=== PATIENT | female | born 1970 | race Caucasian/White ===

== ENCOUNTER 2016-06-07 21:18 | Emergency (ER) | payer MEDICARE ==
[2016-06-07] MEDS ORDERED: TORAdol 30 mg Injection IM ONE (22:01)
[2016-06-07] MEDS ORDERED: Vistaril 50 MG/ML IM ONE ×2 (22:01→22:05)
--- NOTE | 2016-06-07 22:04 | ERPHSYRPT ---
- History of Present Illness Time Seen by Provider: 06/07/16 21:56 Source: patient Patient Subjective Stated Complaint: Pt sts pain all over, aches all over. Sts feels awful. Sts not been recently sick. Sts nausea. Sts has had hiccups. Triage Nursing Assessment: Pt alert, oriented, answers all questions appropriately. Skin flushed, warm, dry. Resps non-labored. Pt speaking in full sentences without difficulty. Pt ambulatory to tx room, steady gait noted. Lung sounds CTA bilat non-labored. Physician History: CC: aches Hx: 46 y/o patient with hx of crohms and fibromylagia. She states she has aching skin all over her body. Tonite she noted BP was low at 106/46 so she came to ER. She sees Dr Yoder. She is on chronic norco. No other specific symptoms. Severity: moderate Allergies/Adverse Reactions: warfarin sodium [From Coumadin] Adverse Reaction (Severe, Verified 01/01/16 17: 33) Platelet count drop significantly Home Medications: Cyclobenzaprine HCl [Flexeril] 10 mg PO HSPRN PRN 01/09/13 [History] Pramipexole Di-HCl [Mirapex] 1.5 mg PO HS 01/09/13 [History] Hydrocodone/APAP 10/325 mg [[place] 10/325 MG Tablet] 1 tab PO TIDPRN PRN [History] Fluoxetine HCl [Prozac] 20 mg PO HS 09/05/14 [History] Folic Acid 1 mg PO DAILY 04/01/15 [History] Lisinopril 10 mg [Zestril 10 MG] 10 mg PO DAILY 04/01/15 [History] Loratadine [Claritin] 10 mg PO DAILY 04/01/15 [History] Milnacipran HCl [Savella] 50 mg PO BID 04/01/15 [History] Pregabalin [Lyrica] 75 cap PO BID 04/01/15 [History] Ropinirole HCl [Requip] 1 mg PO HSPRN PRN 04/01/15 [History] Temazepam 15 mg [Restoril 15 MG] 15 mg PO HS 01/01/16 [History] Hx Tetanus, Diphtheria Vaccination/Date Given: Yes Hx Influenza Vaccination/Date Given: Yes Hx Pneumococcal Vaccination/Date Given: No Immunizations Up to Date: Yes - Review of Systems Constitutional: Fatigue, Malaise, Weakness (all over), No Fever, No Chills Eyes: No Symptoms Ears, Nose, & Throat: No Symptoms Respiratory: No Cough, No Dyspnea Cardiac: No Chest Pain, No Edema Abdominal/Gastrointestinal: No Abdominal Pain, No Nausea, No Vomiting, No Diarrhea Genitourinary Symptoms: No Dysuria Musculoskeletal: Myalgias, No Injury Skin: No Rash Neurological: No Headache, No Paralysis, No Parasthesia All Other Systems: Reviewed and Negative - Past Medical History Pertinent Past Medical History: Yes Neurological History: Migraines ENT History: No Pertinent History Cardiac History: Deep Vein Thrombosis, Hypertension Respiratory History: No Pertinent History, Pulmonary Embolism Endocrine Medical History: No Pertinent History Musculoskeletal History: Arthritis, Fibromyalgia GI Medical History: Crohns Disease History: No Pertinent History Psycho-Social History: Anxiety, Depression Female Reproductive Disorders: No Pertinent History Other Medical History: restless leg syndrome.DVT hx - Past Surgical History Past Surgical History: Yes Neuro Surgical History: No Pertinent History Cardiac: No Pertinent History Respiratory: No Pertinent History Gastrointestinal: No Pertinent History, Hernia Repair Genitourinary: No Pertinent History Musculoskeletal: No Pertinent History Female Surgical History: Hysterectomy, Tubal Ligation Other Surgical History: tonsilectomy, adenoidectomy, groshong placement, port placement, left hand surgery - Social History Smoking Status: Current every day smoker How long have you smoked: 30 Exposure to second hand smoke: Yes Drug Use: none Patient Lives Alone: No - Female History Hx Last Menstrual Period: hyst Hx Now: No - Nursing Vital Signs Nursing Vital Signs: Initial Vital Signs Temperature 97.8 F Temperature Source Oral Pulse Rate 88 Respiratory Rate 16 Blood Pressure 129/82 Pain Intensity 0 - Physical Exam General Appearance: alert Eye Exam: PERRL/EOMI Ears, Nose, Throat Exam: normal ENT inspection, moist mucous membranes Neck Exam: normal inspection, non-tender, supple Respiratory Exam: normal breath sounds, lungs clear Cardiovascular Exam: regular rate/rhythm, No murmur Gastrointestinal/Abdomen Exam: soft, No tenderness, No distention Back Exam: normal inspection Extremity Exam: normal inspection, normal range of motion Neurologic Exam: alert, oriented x 3, cooperative, sensation nml, No motor deficits Skin Exam: warm, dry, No rash SpO2 Interpretation: normal SpO2: 98 Oxygen Delivery: Room Air - Course Nursing assessment & vital signs reviewed: Yes Ordered Tests: Active Orders 24 hr Category Date Time Status CBC W DIFF Stat Lab 06/07/16 22:18 Completed CMP Stat Lab 06/07/16 22:18 Completed Lactic Acid Urgent Lab 06/07/16 22:12 Completed UA Stat Lab 06/07/16 22:45 Completed Medication Summary Discontinued Medications Generic Name Dose Route Start Last Admin Trade Name Geo PRN Reason Stop Dose Admin Hydroxyzine HCl 50 mg 06/07/16 22:01 06/07/16 22:06 Vistaril 50 Mg/Ml IM 06/07/16 22:02 50 mg STAT ONE Administration Hydroxyzine HCl Confirm 06/07/16 22:05 Vistaril 50 Mg/Ml Administered 06/07/16 22:06 Dose 50 mg IM .STK-MED ONE Ketorolac Tromethamine 60 mg 06/07/16 22:01 06/07/16 22:06 Toradol 30 Mg Injection IM 06/07/16 22:02 60 mg STAT ONE Administration Ketorolac Tromethamine Confirm 06/07/16 22:05 Toradol 30 Mg Injection Administered 06/07/16 22:06 Dose 60 mg .ROUTE .STK-MED ONE Lab/Rad Data: Laboratory Result Diagrams 06/07/16 22:18 06/07/16 22:18 Laboratory Results 06/07/16 06/07/16 06/07/16 Range/Units 22:45 22:18 22:18 WBC 8.0 (4.0-10.5) K/mm3 RBC 4.27 (4.1-5.4) M/mm3 Hgb 12.9 (12.0-16.0) gm/dl Hct 38.9 (35-47) % MCV 91.1 (78-100) fl MCH 30.2 (26-32) pg MCHC 33.2 (32-36) g/dl RDW 12.9 (11.5-14.0) % Plt Count 197 (150-450) K/mm3 MPV 10.6 H (6-9.5) fl Gran % 63.4 (36.0-66.0) % Lymphocytes % 27.9 (24.0-44.0) % Monocytes % 6.0 (0.0-12.0) % Eosinophils % 2.6 (0.00-5.0) % Basophils % 0.1 (0.0-0.4) % Basophils # 0.01 (0-0.4) Sodium 140 (136-145) mEq/L Potassium 3.8 (3.5-5.1) mEq/L Chloride 104 (98-107) mEq/L Carbon Dioxide 30.2 (21-32) mEq/L Anion Gap 9.9 (5-15) MEQ/L BUN 10 (9-20) mg/dL Creatinine 0.83 (0.55-1.30) mg/dl Estimated GFR > 60 ML/MIN Glucose 117 H (70-110) MG/DL Lactic Acid (0.4-2.0) Calcium 9.1 (8.5-10.1) mg/dL Total Bilirubin 0.2 (0.2-1.0) mg/dL AST 13 L (15-37) U/L ALT 18 (12-78) U/L Alkaline Phosphatase 74 (46-116) U/L Serum Total Protein 6.7 (6.4-8.2) gm/dL Albumin 3.5 (3.4-5.0) g/dL Ur Collection Type CLEAN CATCH Urine Color YELLOW (YELLOW) Urine Appearance CLEAR (CLEAR) Urine pH 6.0 (5-6) Ur Specific [place] <=1.005 (1.005-1.025) Urine Protein NEGATIVE (Negative) Urine Glucose (UA) NEGATIVE (NEGATIVE) mg/dL Urine Ketones NEGATIVE (NEGATIVE) Urine Nitrite NEGATIVE (NEGATIVE) Urine Bilirubin NEGATIVE (NEGATIVE) Urine Urobilinogen 0.2 (0-1) mg/dL Urine WBC (Auto) NEGATIVE (NEGATIVE) Urine RBC (Auto) NEGATIVE (0-5) Dwayne/ul Specimen Received [id number] 06/07/16 Range/Units 22:12 WBC (4.0-10.5) K/mm3 RBC (4.1-5.4) M/mm3 Hgb (12.0-16.0) gm/dl Hct (35-47) % MCV (78-100) fl MCH (26-32) pg MCHC (32-36) g/dl RDW (11.5-14.0) % Plt Count (150-450) K/mm3 MPV (6-9.5) fl Gran % (36.0-66.0) % Lymphocytes % (24.0-44.0) % Monocytes % (0.0-12.0) % Eosinophils % (0.00-5.0) % Basophils % (0.0-0.4) % Basophils # (0-0.4) Sodium (136-145) mEq/L Potassium (3.5-5.1) mEq/L Chloride (98-107) mEq/L Carbon Dioxide (21-32) mEq/L Anion Gap (5-15) MEQ/L BUN (9-20) mg/dL Creatinine (0.55-1.30) mg/dl Estimated GFR ML/MIN Glucose (70-110) MG/DL Lactic Acid 1.2 (0.4-2.0) Calcium (8.5-10.1) mg/dL Total Bilirubin (0.2-1.0) mg/dL AST (15-37) U/L ALT (12-78) U/L Alkaline Phosphatase (46-116) U/L Serum Total Protein (6.4-8.2) gm/dL Albumin (3.4-5.0) g/dL Ur Collection Type Urine Color (YELLOW) Urine Appearance (CLEAR) Urine pH (5-6) Ur Specific [place] (1.005-1.025) Urine Protein (Negative) Urine Glucose (UA) (NEGATIVE) mg/dL Urine Ketones (NEGATIVE) Urine Nitrite (NEGATIVE) Urine Bilirubin (NEGATIVE) Urine Urobilinogen (0-1) mg/dL Urine WBC (Auto) (NEGATIVE) Urine RBC (Auto) (0-5) Dwayne/ul Specimen Received - Progress Progress Note: 06/07/16 22:04 BP is wnl here. 06/07/16 23:02 BP has been normal here. She feels better after meds. Appears to have flare of fibromyalgia. Will release to follow up with Dr Yoder. Counseled pt/family regarding: lab results, diagnosis, need for follow-up - Departure Time of Disposition: 23:03 Departure Disposition: Home Clinical Impression: Fibromyalgia Condition: Stable Critical Care Time: No Referrals: ESTEBAN YODER [Primary Care Provider] - Instructions: Chronic Pain -- Adult Additional Instructions: No driving tonite and stay with family. Follow up this week with Dr Yoder.
[2016-06-07] MEDS ORDERED: TORAdol 30 mg Injection ONE (22:05)
[2016-06-07 22:21] LABS: BASOPHIL % 0.1 % (0.0-0.4); Eosinophil % 2.6 % (0.00-5.0); Granulocytes % 63.4 % (36.0-66.0); Lymphocytes % 27.9 % (24.0-44.0); Mean Cell Volume 91.1 fl (78-100); Mean Corpuscular Hemoglobin 30.2 pg (26-32); Mean Platelet Volume 10.6 fl (6-9.5); Platelet Count 197 K/mm3 (150-450); Red Blood Count 4.27 M/mm3 (4.1-5.4); Red Cell Distribution Width 12.9 % (11.5-14.0)
[2016-06-07 22:37] LABS: ALBUMIN 3.5 g/dL (3.4-5.0); ALKALINE PHOSPHATASE 74 U/L (46-116); ANION GAP 9.9 MEQ/L (5-15); BILIRUBIN,TOTAL 0.2 mg/dL (0.2-1.0); BLOOD UREA NITROGEN 10 mg/dL (9-20); CHLORIDE 104 mEq/L (98-107); Carbon Dioxide 30.2 mEq/L (21-32); Glucose 117 MG/DL (70-110); Potassium 3.8 mEq/L (3.5-5.1); SGOT/AST 13 U/L (15-37); SGPT/ALT 18 U/L (12-78); SODIUM 140 mEq/L (136-145); Total Protein 6.7 gm/dL (6.4-8.2)
[2016-06-07 22:54] LABS: COMPLETE URINE MICROSCOPIC? NO; Collection Type CLEAN CATCH
[2016-06-07 23:13] VITALS: BP 127/67; PULSE 79; O2SAT 100
== END 2016-06-07 23:13 | disposition home or self-care (01) ==
LOC: ED 21:18
DX: M79.7 Fibromyalgia (principal); Z79.899 Other long term (current) drug therapy; I10 Essential (primary) hypertension; K50.90 Crohn's disease, unspecified, without complications
CPT/HCPCS: 36415; 80053; 81002; 83605; 85025; 96372; 99283; J1885; J3410

== ENCOUNTER 2016-06-26 17:12 | Observation (INO) | payer MEDICARE ==
[2016-06-26] MEDS ORDERED: Sodium Chloride 0.9% 1000 ML 1,000 ML IV STA (17:39)
[2016-06-26] MEDS ORDERED: Sodium Chloride 0.9% 1000 ML 1,000 ML ONE (17:43)
[2016-06-26 18:01] LABS: Mean Cell Volume 86.8 fl (78-100); Mean Platelet Volume 11.1 fl (6-9.5); Platelet Count 211 K/mm3 (150-450); Red Blood Count 3.57 M/mm3 (4.1-5.4); Red Cell Distribution Width 13.3 % (11.5-14.0); White Blood Count 9.8 K/mm3 (4.0-10.5)
--- NOTE | 2016-06-26 18:02 | ERPHSYRPT ---
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 She is on eliquis anticoagualtion. She reports waking up this AM with a cut on the back of her head and a bruise on the left side of her leg. She has no recollection of an injury but presumes she must have fallen in the night. No N/V. No confusion today. No neck or back pain. She reports periodic fevers for a few weeks. Malaise. No abd pain or cough. She had labs showing W?BC 17 this week so started empiric doxycycline yesterday. No blood cultures available. She had neg strep throat testing and negative flu testing. Allergies/Adverse Reactions: warfarin sodium [From Coumadin] Adverse Reaction (Severe, Verified 06/26/16 17: 26) Platelet count drop significantly Home Medications: Cyclobenzaprine HCl [Flexeril] 10 mg PO HSPRN PRN 01/09/13 [History] Pramipexole Di-HCl [Mirapex] 1.5 mg PO HS 01/09/13 [History] Hydrocodone/APAP 10/325 mg [[place] 10/325 MG Tablet] 1 tab PO TIDPRN PRN [History] Fluoxetine HCl [Prozac] 20 mg PO HS 09/05/14 [History] Lisinopril 10 mg [Zestril 10 MG] 10 mg PO DAILY 04/01/15 [History] Loratadine [Claritin] 10 mg PO DAILY 04/01/15 [History] Milnacipran HCl [Savella] 50 mg PO BID 04/01/15 [History] Pregabalin [Lyrica] 75 cap PO BID 04/01/15 [History] Ropinirole HCl [Requip] 1 mg PO HSPRN PRN 04/01/15 [History] Temazepam 15 mg [Restoril 15 MG] 15 mg PO HS 01/01/16 [History] Hx Tetanus, Diphtheria Vaccination/Date Given: Yes Hx Influenza Vaccination/Date Given: Yes Hx Pneumococcal Vaccination/Date Given: No Immunizations Up to Date: Yes - Review of Systems Constitutional: Fever, Chills, Fatigue, Malaise Eyes: No Vision Changes Ears, Nose, & Throat: Throat Pain Respiratory: No Cough Cardiac: No Chest Pain Abdominal/Gastrointestinal: No Abdominal Pain, No Nausea, No Vomiting Musculoskeletal: No Back Pain, No Neck Pain Skin: No Rash Neurological: No Dizziness, No Headache, No Paralysis, No Parasthesia All Other Systems: Reviewed and Negative - Past Medical History Pertinent Past Medical History: Yes Neurological History: Migraines ENT History: No Pertinent History Cardiac History: Deep Vein Thrombosis, Hypertension Respiratory History: No Pertinent History, Pulmonary Embolism Endocrine Medical History: No Pertinent History Musculoskeletal History: Arthritis, Fibromyalgia GI Medical History: Crohns Disease History: No Pertinent History Psycho-Social History: Anxiety, Depression Female Reproductive Disorders: No Pertinent History Other Medical History: restless leg syndrome.DVT hx - Past Surgical History Past Surgical History: Yes Neuro Surgical History: No Pertinent History Cardiac: No Pertinent History Respiratory: No Pertinent History Gastrointestinal: No Pertinent History, Hernia Repair Genitourinary: No Pertinent History Musculoskeletal: No Pertinent History Female Surgical History: Hysterectomy, Tubal Ligation Other Surgical History: groshong placement, port placement, left hand surgery - Social History Smoking Status: Current every day smoker How long have you smoked: 30 Exposure to second hand smoke: Yes Drug Use: none Patient Lives Alone: No - Female History Hx Now: No - Nursing Vital Signs Nursing Vital Signs: Initial Vital Signs Temperature 98.8 F Temperature Source Oral Pulse Rate 88 Respiratory Rate 18 Blood Pressure [Right Arm] 98/62 Pain Intensity 10 - Physical Exam General Appearance: alert, other (2cm superficial cut back of head occipital, no FB, drng or sign of infection. ) Eye Exam: PERRL/EOMI Ears, Nose, Throat Exam: moist mucous membranes Neck Exam: normal inspection, non-tender, supple, No midline tenderness Respiratory Exam: normal breath sounds, lungs clear Cardiovascular Exam: regular rate/rhythm, gallop (S4), No murmur, No friction rub Gastrointestinal/Abdomen Exam: soft, No tenderness, No distention Back Exam: normal inspection, No vertebral tenderness Extremity Exam: normal range of motion, other (some eccymosis left knee area), No limited range of motion, No tenderness Neurologic Exam: alert, oriented x 3, cooperative, sensation nml, No motor deficits Skin Exam: warm, dry, No rash SpO2 Interpretation: normal SpO2: 100 Oxygen Delivery: Room Air - Course Nursing assessment & vital signs reviewed: Yes EKG Interpreted by Me: RATE (93), Sinus Rhythm, NORMAL AXIS, NORMAL INTERVALS ( QTc 448), NORMAL QRS, NORMAL ST-T Ordered Tests: Active Orders 24 hr Category Date Time Status Cath for Specimen-Straight STAT Care 06/26/16 17:39 Active EKG-ER Only STAT Care 06/26/16 17:39 Active IV Insertion STAT Care 06/26/16 17:39 Active Wound Care STAT Care 06/26/16 17:40 Active HEAD WITHOUT CONTRAST [CT] Stat Exams 06/26/16 17:40 Taken BLOOD CULTURE Stat Lab 06/26/16 17:57 Received CBC W DIFF Stat Lab 06/26/16 17:45 Completed CMP Stat Lab 06/26/16 17:45 Completed CULTURE,URINE Stat Lab 06/26/16 18:05 Received Ethyl Alcohol,Urine Stat Lab 06/26/16 18:05 Completed Lactic Acid Urgent Lab 06/26/16 17:39 Completed Manual Differential NC Stat Lab 06/26/16 17:45 Completed UA W/ MICROSCOPIC Stat Lab 06/26/16 18:05 Completed Urine Triage Profile Stat Lab 06/26/16 18:05 Completed Medication Summary Discontinued Medications Generic Name Dose Route Start Last Admin Trade Name Freq PRN Reason Stop Dose Admin Sodium Chloride 1,000 mls @ 999 mls/hr 06/26/16 17:39 06/26/16 17:44 Sodium Chloride 0.9% 1000 Ml IV 06/26/16 18:39 999 mls/hr .Q1H1M STA Administration Sodium Chloride Confirm 06/26/16 17:43 Sodium Chloride 0.9% 1000 Ml Administered 06/26/16 17:44 Dose 1,000 mls @ ud .ROUTE .STK-MED ONE Lab/Rad Data: Laboratory Result Diagrams 06/26/16 17:45 06/26/16 17:45 Laboratory Results 06/26/16 06/26/16 06/26/16 Range/Units 18:05 18:05 18:05 WBC (4.0-10.5) K/mm3 RBC (4.1-5.4) M/mm3 Hgb (12.0-16.0) gm/dl Hct (35-47) % MCV (78-100) fl MCH (26-32) pg MCHC (32-36) g/dl RDW (11.5-14.0) % Plt Count (150-450) K/mm3 MPV (6-9.5) fl Segmented Neutrophils (36.0-66.0) % Lymphocytes (Manual) (24-44) % Monocytes (Manual) (0.0-12.0) % Eosinophils (Manual) (0.00-3.0) % Differential Comment Platelet Estimate (NORMAL) Sodium (136-145) mEq/L Potassium (3.5-5.1) mEq/L Chloride (98-107) mEq/L Carbon Dioxide (21-32) mEq/L Anion Gap (5-15) MEQ/L BUN (9-20) mg/dL Creatinine (0.55-1.30) mg/dl Estimated GFR ML/MIN Glucose (70-110) MG/DL Lactic Acid (0.4-2.0) Calcium (8.5-10.1) mg/dL Total Bilirubin (0.2-1.0) mg/dL AST (15-37) U/L ALT (12-78) U/L Alkaline Phosphatase (46-116) U/L Serum Total Protein (6.4-8.2) gm/dL Albumin (3.4-5.0) g/dL Ur Collection Type CATH Urine Color YELLOW (YELLOW) Urine Appearance CLEAR (CLEAR) Urine pH 5.5 5.5 (5-6) Ur Specific [place] 1.010 (1.005-1.025) Urine Protein 30 (Negative) Urine Glucose (UA) NEGATIVE (NEGATIVE) mg/dL Urine Ketones NEGATIVE (NEGATIVE) Urine Nitrite NEGATIVE (NEGATIVE) Urine Bilirubin NEGATIVE (NEGATIVE) Urine Urobilinogen 0.2 (0-1) mg/dL Urine WBC (Auto) SMALL (NEGATIVE) Urine RBC (Auto) TRACE HEMOLYZED (0-5) Dwayne/ul Urine Microscopic WBC 0-2 (0-5) /HPF Urine Bacteria FEW (NEGATIVE) /HPF Urine Mucus SLIGHT (NEGATIVE) /HPF Urine Opiates Level POS. (NEGATIVE) Ur Methadone NEG. (NEGATIVE) Urine Barbiturates NEG. (NEGATIVE) Ur Phencyclidine (PCP) NEG. (NEGATIVE) Urine Amphetamine NEG. (NEGATIVE) U Benzodiazepine Level NEG. (NEGATIVE) Urine Cocaine NEG. (NEGATIVE) Urine Marijuana (THC) NEG. (NEGATIVE) Urine Ethyl Alcohol 1 (0.00-20) mg/dl Specimen Received 06/26/16:1805 06/26/16 06/26/16 06/26/16 Range/Units 17:45 17:45 17:39 WBC 9.8 (4.0-10.5) K/mm3 RBC 3.57 L (4.1-5.4) M/mm3 Hgb 10.7 L (12.0-16.0) gm/dl Hct 31.0 L (35-47) % MCV 86.8 (78-100) fl MCH 29.9 (26-32) pg MCHC 34.5 (32-36) g/dl RDW 13.3 (11.5-14.0) % Plt Count 211 (150-450) K/mm3 MPV 11.1 H (6-9.5) fl Segmented Neutrophils 77 H (36.0-66.0) % Lymphocytes (Manual) 12 L (24-44) % Monocytes (Manual) 9 (0.0-12.0) % Eosinophils (Manual) 2 (0.00-3.0) % Differential Comment NORMAL Platelet Estimate NORMAL (NORMAL) Sodium 130 L (136-145) mEq/L Potassium 3.1 L (3.5-5.1) mEq/L Chloride 95 L (98-107) mEq/L Carbon Dioxide 23.6 (21-32) mEq/L Anion Gap 14.1 (5-15) MEQ/L BUN 16 (9-20) mg/dL Creatinine 1.88 H (0.55-1.30) mg/dl Estimated GFR 31 ML/MIN Glucose 105 (70-110) MG/DL Lactic Acid 0.8 (0.4-2.0) Calcium 8.2 L (8.5-10.1) mg/dL Total Bilirubin 0.2 (0.2-1.0) mg/dL AST 28 (15-37) U/L ALT 40 (12-78) U/L Alkaline Phosphatase 151 H (46-116) U/L Serum Total Protein 6.1 L (6.4-8.2) gm/dL Albumin 2.4 L (3.4-5.0) g/dL Ur Collection Type Urine Color (YELLOW) Urine Appearance (CLEAR) Urine pH (5-6) Ur Specific [place] (1.005-1.025) Urine Protein (Negative) Urine Glucose (UA) (NEGATIVE) mg/dL Urine Ketones (NEGATIVE) Urine Nitrite (NEGATIVE) Urine Bilirubin (NEGATIVE) Urine Urobilinogen (0-1) mg/dL Urine WBC (Auto) (NEGATIVE) Urine RBC (Auto) (0-5) Dwayne/ul Urine Microscopic WBC (0-5) /HPF Urine Bacteria (NEGATIVE) /HPF Urine Mucus (NEGATIVE) /HPF Urine Opiates Level (NEGATIVE) Ur Methadone (NEGATIVE) Urine Barbiturates (NEGATIVE) Ur Phencyclidine (PCP) (NEGATIVE) Urine Amphetamine (NEGATIVE) U Benzodiazepine Level (NEGATIVE) Urine Cocaine (NEGATIVE) Urine Marijuana (THC) (NEGATIVE) Urine Ethyl Alcohol (0.00-20) mg/dl Specimen Received - Progress Progress Note: 06/26/16 19:16 CT brain: kevin 6:30 PM 06/26/2016: Compared to 12/16/15. Negative CT head. Pt has elevated creat, low Na and low K. IVF given. Called Dr Stevan Yoder and will place on obs and IVF. Will see patient in: hospital (observation) Counseled pt/family regarding: lab results, diagnosis, need for follow-up - Departure Time of Disposition: 19:18 Departure Disposition: Observation Clinical Impression: Laceration of head, Dehydration, Hypokalemia, Hyponatremia Condition: Stable Critical Care Time: No Referrals: ESTEBAN YODER [Primary Care Provider] -
[2016-06-26 18:11] LABS: Mean Corpuscular Hemoglobin 29.9 pg (26-32)
[2016-06-26 18:14] LABS: Bacteria FEW /HPF (NEGATIVE); COMPLETE URINE MICROSCOPIC? YES; Collection Type CATH; Mucus SLIGHT /HPF (NEGATIVE); Ph 5.5 (5-6); WBC 0-2 /HPF (0-5)
[2016-06-26 18:20] LABS: ALBUMIN 2.4 g/dL (3.4-5.0); ANION GAP 14.1 MEQ/L (5-15); BILIRUBIN,TOTAL 0.2 mg/dL (0.2-1.0); Carbon Dioxide 23.6 mEq/L (21-32); Potassium 3.1 mEq/L (3.5-5.1); Total Protein 6.1 gm/dL (6.4-8.2)
[2016-06-26 18:30] LABS: Eosinophil 2 % (0.00-3.0); Platelet Estimate NORMAL (NORMAL); Total Cells Counted 100
[2016-06-26] MEDS ORDERED: Dextrose 5% -0.45 NaCl 1000 ML 0 ML IV ONE (19:48)
[2016-06-26] MEDS: DEXTROSE 5%-NACL 0.9% 1000 ML + KCL 40 MEQ 1,000 ML IV SCH (20:06)
[2016-06-26] MEDS ORDERED: Flexeril 10 MG PO PRN (20:39)
[2016-06-26] MEDS ORDERED: Requip 0.5 MG PO PRN (20:45)
[2016-06-26] MEDS ORDERED: Restoril 15 MG PO PRN (20:46)
[2016-06-26] MEDS: Norco 10/325 MG Tablet PO PRN (20:51)
--- NOTE | 2016-06-26 20:56 | XRAY ---
Indication: Head injury. Anticoagulant therapy. Multiple contiguous axial images obtained through the head without contrast. Comparison: December 16, 2015 No acute intracranial hemorrhage, abnormal extra-axial fluid collection, or mass effect. Fourth ventricle is midline without hydrocephalus. [place]-white matter differentiation is preserved. Bony calvarium intact. Visualized paranasal sinuses and mastoid air cells are pneumatized and clear. Impression: Again no acute intracranial abnormalities. CTDI 52.03
[2016-06-26] MEDS: Lyrica 25 MG PO SCH (21:37)
[2016-06-26] MEDS: ELIQUIS PO SCH (21:38)
[2016-06-26] MEDS ORDERED: Prozac 20 MG PO SCH (22:00)
[2016-06-27] MEDS: DEXTROSE 5%-NACL 0.9% 1000 ML + KCL 40 MEQ 1,000 ML IV SCH (02:34)
[2016-06-27 05:54] LABS: Mean Cell Volume 87.9 fl (78-100); Mean Platelet Volume 11.2 fl (6-9.5); Platelet Count 241 K/mm3 (150-450); Red Blood Count 3.39 M/mm3 (4.1-5.4); Red Cell Distribution Width 13.6 % (11.5-14.0); White Blood Count 7.1 K/mm3 (4.0-10.5)
[2016-06-27] MEDS: Norco 10/325 MG Tablet PO PRN (06:01)
[2016-06-27 06:05] LABS: ANION GAP 12.2 MEQ/L (5-15); Carbon Dioxide 23.4 mEq/L (21-32)
--- NOTE | 2016-06-27 07:09 | PCM.SSS ---
History of Present Illness - Chief Complaint Chief Complaint: dehydration History of Present Illness: is a 46 year old female who presented to ER after a fall, she felt weak and lightheaded. apparently has felt ill with chills, not much diarrhea or vomiting etc. hx of crohn's. she feels much better after hydration, cr was elevated and K was low on arrival, these are resolved now. no source of infection found to correlate with the chills - Review of Systems Constitutional: No Fever, No Chills Respiratory: No Cough, No Short Of Breath Cardiac: No Chest Pain, No Edema, No Syncope Skin: No Rash All Other Systems: Reviewed and Negative Medications & Allergies Home Medications: Home Medication List Cyclobenzaprine HCl [Flexeril] 10 mg PO HSPRN PRN 01/09/13 [History Confirmed ] Pramipexole Di-HCl [Mirapex] 1.5 mg PO HS 01/09/13 [History Confirmed 06/26/16] Hydrocodone/APAP 10/325 mg [[place] 10/325 MG Tablet] 1 tab PO TIDPRN PRN [History Confirmed 06/26/16] Fluoxetine HCl [Prozac] 20 mg PO HS 09/05/14 [History Confirmed 06/26/16] Lisinopril 10 mg [Zestril 10 MG] 5 mg PO DAILY 04/01/15 [History Confirmed 06/26/16] Loratadine [Claritin] 10 mg PO DAILY 04/01/15 [History Confirmed 06/26/16] Milnacipran HCl [Savella] 50 mg PO BID 04/01/15 [History Confirmed 06/26/16] Pregabalin [Lyrica] 75 cap PO BID 04/01/15 [History Confirmed 06/26/16] Ropinirole HCl [Requip] 1 mg PO HSPRN PRN 04/01/15 [History Confirmed 06/26/16] Apixaban [Eliquis] 5 mg PO BID #0 tablet 04/04/15 [Rx Confirmed 06/26/16] Temazepam 15 mg [Restoril 15 MG] 15 mg PO HS 01/01/16 [History Confirmed 06/26/16] Allergies/Adverse Reactions: Allergies Allergy/AdvReac Type Severity Reaction Status Date / Time warfarin sodium AdvReac Severe Verified 06/26/16 17:26 [From Coumadin] - Past Medical History Past Medical History: Yes Neurological History: Migraines ENT History: No Pertinent History Cardiac History: Deep Vein Thrombosis, Hypertension Respiratory History: No Pertinent History, Pulmonary Embolism Endocrine Medical History: No Pertinent History Musculoskelatal History: Arthritis, Fibromyalgia GI Medical History: Crohns Disease History: No Pertinent History Pyscho-Social History: Anxiety, Depression Reproductive Disorders: No Pertinent History Comment: restless leg syndrome.DVT hx - Female History Are you now?: No - Past Surgical History Past Surgical History: Yes Neuro Surgical History: No Pertinent History Cardiac History: No Pertinent History Respiratory Surgery: No Pertinent History GI Surgical History: No Pertinent History, Hernia Repair Genitourinary Surgical Hx: No Pertinent History Musculskeletal Surgical Hx: No Pertinent History Female Surgical History: Hysterectomy, Tubal Ligation Other Surgical History: groshong placement/removed, port placement/removed, left hand surgery - Social History Smoking Status: Current every day smoker How long have you smoked: 40 Exposure to second hand smoke: Yes Alcohol: None Drug Use: none - Physical Exam Vital Signs: Vital Signs - 24 hr Temp Pulse Resp BP Pulse Ox 06/27/16 04:00 98.9 F 92 H 18 106/55 98 06/26/16 23:26 98.3 F 95 H 17 100/55 98 06/26/16 20:54 97.7 F 86 20 156/61 96 06/26/16 19:18 100 06/26/16 18:28 98.8 F 88 18 98/62 99 06/26/16 18:06 96 H 16 100/61 99 06/26/16 17:20 98.2 F 99 H 22 117/55 100 General Appearance: no apparent distress, alert Neurologic Exam: alert, oriented x 3, cooperative, normal mood/affect, nml cerebellar function, nml station & gait, sensation nml, No motor deficits Respiratory Exam: normal breath sounds, lungs clear, No respiratory distress Cardiovascular Exam: regular rate/rhythm, normal heart sounds, normal peripheral pulses Gastrointestinal/Abdomen Exam: soft, normal bowel sounds, No tenderness, No mass Extremity Exam: normal inspection, normal range of motion, pelvis stable Skin Exam: normal color, warm, dry, No rash Results - Labs Lab/Micro Results: Lab Results-Last 24 Hours 06/27/16 06/27/16 Range/Units 04:30 04:30 WBC 7.1 (4.0-10.5) K/mm3 RBC 3.39 L (4.1-5.4) M/mm3 Hgb 10.2 L (12.0-16.0) gm/dl Hct 29.8 L (35-47) % MCV 87.9 (78-100) fl MCH 30.0 (26-32) pg MCHC 34.2 (32-36) g/dl RDW 13.6 (11.5-14.0) % Plt Count 241 (150-450) K/mm3 MPV 11.2 H (6-9.5) fl Sodium 140 (136-145) mEq/L Potassium 4.0 (3.5-5.1) mEq/L Chloride 108 H (98-107) mEq/L Carbon Dioxide 23.4 (21-32) mEq/L Anion Gap 12.2 (5-15) MEQ/L BUN 13 (9-20) mg/dL Creatinine 1.36 H (0.55-1.30) mg/dl Estimated GFR 44 ML/MIN Glucose 124 H (70-110) MG/DL Calcium 8.0 L (8.5-10.1) mg/dL Assessment/Plan (1) Hypokalemia Current Visit: Yes Status: Acute Code(s): E87.6 - HYPOKALEMIA (2) Laceration of head Current Visit: Yes Status: Acute Code(s): S01.91XA - LACERATION W/O FOREIGN BODY OF UNSP PART OF HEAD, INIT (3) Dehydration Current Visit: No Status: Acute Code(s): E86.0 - DEHYDRATION (4) Generalized weakness Current Visit: No Status: Acute Code(s): R53.1 - WEAKNESS Hospital Summary - Vitals & Intake/Output Vital Signs: Vital Signs Temperature 98.9 F 06/27/16 04:00 Pulse Rate 92 H 06/27/16 04:00 Respiratory Rate 18 06/27/16 04:00 Blood Pressure 106/55 06/27/16 04:00 O2 Sat by Pulse Oximetry 98 06/27/16 04:00 Intake & Output: Intake & Output 01/1906/25/16 06/26/16 06/27/16 11:59 11:59 11:59 11:59 Intake Total 1782 Output Total 2300 Balance -518 Weight 89.159 kg - Lab Result Diagrams: 06/27/16 04:30 06/27/16 04:30 Lab Results-Last 24 Hrs: Lab Results-Last 24 Hours 06/27/16 06/27/16 Range/Units 04:30 04:30 WBC 7.1 (4.0-10.5) K/mm3 RBC 3.39 L (4.1-5.4) M/mm3 Hgb 10.2 L (12.0-16.0) gm/dl Hct 29.8 L (35-47) % MCV 87.9 (78-100) fl MCH 30.0 (26-32) pg MCHC 34.2 (32-36) g/dl RDW 13.6 (11.5-14.0) % Plt Count 241 (150-450) K/mm3 MPV 11.2 H (6-9.5) fl Sodium 140 (136-145) mEq/L Potassium 4.0 (3.5-5.1) mEq/L Chloride 108 H (98-107) mEq/L Carbon Dioxide 23.4 (21-32) mEq/L Anion Gap 12.2 (5-15) MEQ/L BUN 13 (9-20) mg/dL Creatinine 1.36 H (0.55-1.30) mg/dl Estimated GFR 44 ML/MIN Glucose 124 H (70-110) MG/DL Calcium 8.0 L (8.5-10.1) mg/dL - Procedures and Test Procedures and Tests throughout Hospitalization: Therapy Orders & Screens 06/26/16 21:17 OT Screen per Nursing Assess ONCE Comment: Protocol Order Physician Instructions: Greater than 3 points order OT Admission Screening Reason For Exam: Triggered on Admission Diagnosis: dehydration Open Wound/Cellutlitis/Pressure Ulcers: Yes: head laceration Acute Fx/ORIF/Change in wt bearing status: No Severe MUSCULOSKELETAL pain: No ADL Dysfunction: No Acute CVA w/Hemiparesis/Hemiplegia: No Decreased Functional Mobility/Strength: Yes: weakness past month Sprain/Strain: No Acute Post-op Mobility Dysfunction: No Total Points: 6 PT Screen per Nursing Assess ONCE Comment: Protocol Order Physician Instructions: Greater than 3 points order PT Admission Screenin Reason For Exam: Triggered on Admission Diagnosis: dehydration Open Wound/Cellutlitis/Pressure Ulcers: Yes: head laceration Acute Fx/ORIF/Change in wt bearing status: No Severe MUSCULOSKELETAL pain: No ADL Dysfunction: No Acute CVA w/Hemiparesis/Hemiplegia: No Decreased Functional Mobility/Strength: Yes: weakness past month Sprain/Strain: No Acute Post-op Mobility Dysfunction: No Total Points: 6 Smoking Cessation Education ONCE Comment: Diagnosis: dehydration Smoking Status: Current every day smoker How long have you smoked: 40 Have you smoked in the past 12 months: Yes Approximately how many cigarettes per day: 4 Do you dip or chew tobacco: No - Discharge Disposition: Home, Self-Care Condition: Stable Prescriptions: Continue Cyclobenzaprine HCl [Flexeril] 10 mg PO HSPRN PRN PRN Reason: Pain Pramipexole Di-HCl [Mirapex] 1.5 mg PO HS Hydrocodone/APAP 10/325 mg [[place] 10/325 MG Tablet] 1 tab PO TIDPRN PRN PRN Reason: Pain Fluoxetine HCl [Prozac] 20 mg PO HS Loratadine [Claritin] 10 mg PO DAILY Ropinirole HCl [Requip] 1 mg PO HSPRN PRN PRN Reason: Pain Milnacipran HCl [Savella] 50 mg PO BID Pregabalin [Lyrica] 75 cap PO BID Lisinopril 10 mg [Zestril 10 MG] 5 mg PO DAILY Apixaban [Eliquis] 5 mg PO BID #0 tablet Temazepam 15 mg [Restoril 15 MG] 15 mg PO HS Follow up with: ESTEBAN SOLITARIO [Primary Care Provider] -
[2016-06-27 07:12] VITALS: BP 101/57; PULSE 70; O2SAT 99
[2016-06-27 08:55] LABS: BAND 8 % (0.0-2.0); Eosinophil 2 % (0.00-3.0); Total Cells Counted 100
[2016-06-27] MEDS: Lyrica 25 MG PO SCH (08:55)
[2016-06-27] MEDS: ELIQUIS PO SCH (08:55)
[2016-06-27 08:56] LABS: Platelet Estimate NORMAL (NORMAL)
[2016-06-27] MEDS ORDERED: NON-FORMULARY ITEM (Loratadine [Claritin] 10 MG) PO SCH (10:00)
[2016-06-27] MEDS ORDERED: MEDICATION INTERVENTION MC SCH (10:00)
[2016-06-27] MEDS ORDERED: MILNACIPRAN HCL 50 MG PO SCH (10:00)
[2016-06-27] MEDS ORDERED: Zestril 5 MG PO SCH (10:00)
[2016-06-27] MEDS ORDERED: Zestril 10 MG PO SCH (10:00)
[2016-06-27] MEDS ORDERED: CLARITIN 10 MG PO SCH (10:00)
== END 2016-06-27 10:20 | disposition home or self-care (01) ==
LOC: ED 17:12 → MED SURG 19:34
PROVIDERS: ADMIT Family Medicine; ATTEND Family Medicine
DX: E87.6 Hypokalemia (principal); S01.91XA Laceration without foreign body of unspecified part of head, initial encounter; W19.XXXA Unspecified fall, initial encounter; E86.0 Dehydration; R53.1 Weakness; I10 Essential (primary) hypertension; Z86.718 Personal history of other venous thrombosis and embolism; Z86.711 Personal history of pulmonary embolism; M79.7 Fibromyalgia; M19.90 Unspecified osteoarthritis, unspecified site; K50.90 Crohn's disease, unspecified, without complications; F41.8 Other specified anxiety disorders; Z72.0 Tobacco use; Z79.01 Long term (current) use of anticoagulants; Z79.899 Other long term (current) drug therapy
CPT/HCPCS: 99284; 36000; 96360; 96361; 93005; 87040; 81000; 36415 ×2; 80307; 80320; 83986; 85025 ×2; 80048; 80053; 87086; 70450; 83605; P9612; G0378

== ENCOUNTER 2016-12-28 19:04 | Emergency (ER) | payer MEDICARE ==
[2016-12-28 19:16] VITALS: BP 142/85; PULSE 88; O2SAT 99
[2016-12-28] MEDS ORDERED: Adacel Vial IM ONE (19:32)
--- NOTE | 2016-12-28 19:37 | ERPHSYRPT ---
- History of Present Illness Time Seen by Provider: 12/28/16 19:32 Source: patient Patient Subjective Stated Complaint: pt has sm red bump on his left arm with pain to the elbow no fever no vomiting -worried because in the past she became septic after a bug bite Triage Nursing Assessment: pt is awake and alert and able to answer questions Physician History: CC: left forearm sore Hx: 46 y/o patient of Dr Yoder awoke with sting or bug bite left forearm. It itches but eagle more. No fever or chills. Unsure of last tetanus vaccine. No other complaints. Occurred: this morning Severity of Pain-Max: mild Severity of Pain-Current: mild Extremities Pain Location: forearm: left Allergies/Adverse Reactions: warfarin sodium [From Coumadin] Adverse Reaction (Severe, Verified 06/26/16 17: 26) Platelet count drop significantly Home Medications: Cyclobenzaprine HCl [Flexeril] 10 mg PO HSPRN PRN 01/09/13 [History] Pramipexole Di-HCl [Mirapex] 1.5 mg PO HS 01/09/13 [History] Hydrocodone/APAP 10/325 mg [[place] 10/325 MG Tablet] 1 tab PO TIDPRN PRN [History] Fluoxetine HCl [Prozac] 20 mg PO HS 09/05/14 [History] Lisinopril 10 mg [Zestril 10 MG] 5 mg PO DAILY 04/01/15 [History] Loratadine [Claritin] 10 mg PO DAILY 04/01/15 [History] Milnacipran HCl [Savella] 50 mg PO BID 04/01/15 [History] Pregabalin [Lyrica] 75 cap PO BID 04/01/15 [History] Ropinirole HCl [Requip] 1 mg PO HSPRN PRN 04/01/15 [History] Temazepam 15 mg [Restoril 15 MG] 15 mg PO HS 01/01/16 [History] Hx Tetanus, Diphtheria Vaccination/Date Given: Yes Hx Influenza Vaccination/Date Given: Yes Hx Pneumococcal Vaccination/Date Given: Yes - Review of Systems Constitutional: No Fever, No Chills Neurological: No Focal Weakness, No Parasthesia - Past Medical History Pertinent Past Medical History: Yes Neurological History: Migraines ENT History: No Pertinent History Cardiac History: Deep Vein Thrombosis, Hypertension Respiratory History: Pulmonary Embolism Endocrine Medical History: No Pertinent History Musculoskeletal History: Arthritis, Fibromyalgia GI Medical History: Crohns Disease History: No Pertinent History Psycho-Social History: Anxiety, Depression Female Reproductive Disorders: No Pertinent History Other Medical History: restless leg syndrome.DVT hx - Past Surgical History Past Surgical History: Yes Neuro Surgical History: No Pertinent History Cardiac: No Pertinent History Respiratory: No Pertinent History Gastrointestinal: Hernia Repair Genitourinary: No Pertinent History Musculoskeletal: No Pertinent History Female Surgical History: Hysterectomy, Tubal Ligation Other Surgical History: groshong placement/removed, port placement/removed, left hand surgery - Social History Smoking Status: Current every day smoker How long have you smoked: 30 Exposure to second hand smoke: Yes Drug Use: none Patient Lives Alone: No - Female History Hx Last Menstrual Period: hyst Hx Now: No - Nursing Vital Signs Nursing Vital Signs: Initial Vital Signs Temperature 98.5 F 12/28/16 19:15 Pulse Rate 88 12/28/16 19:15 Respiratory Rate 16 12/28/16 19:15 Blood Pressure 142/85 12/28/16 19:15 O2 Sat by Pulse Oximetry 99 12/28/16 19:15 Pain Scale Pain Intensity 3 - Physical Exam General Appearance: alert Eyes, Ears, Nose, Throat Exam: moist mucous membranes Neck Exam: supple Cardiovascular/Respiratory Exam: regular rate/rhythm Neuro/Tendon Exam: normal sensation, normal motor functions Mental Status Exam: alert, oriented x 3, cooperative Skin Exam: warm, dry, other (left forearm dorsal area with some redness, no fluctuance, normal pulses.) SpO2: 99 Oxygen Delivery: Room Air - Course Nursing assessment & vital signs reviewed: Yes - Progress Progress Note: 12/28/16 19:34 Tetanus updated. Rx doxy. Advised baking soda paste. Counseled pt/family regarding: diagnosis, need for follow-up - Departure Time of Disposition: 19:35 Departure Disposition: Home Clinical Impression: Cellulitis of left forearm Condition: Stable Critical Care Time: No Referrals: ESTEBAN YODER [Primary Care Provider] - Instructions: Cellulitis -- Adult, Care for an Insect Bite or Sting Additional Instructions: Rx doxycycline. Baking soda paste compresses. Elevate arm. Follow up with Dr Beba. Your tetanus was updated 4.
== END 2016-12-28 20:04 | disposition home or self-care (01) ==
LOC: ED 19:04
DX: L03.114 Cellulitis of left upper limb (principal)
CPT/HCPCS: 99282

== ENCOUNTER 2017-03-04 19:37 | Emergency (ER) | payer MEDICARE ==
--- NOTE | 2017-03-04 20:48 | ERPHSYRPT ---
- History of Present Illness Time Seen by Provider: 03/04/17 20:46 Historian: patient Exam Limitations: no limitations Patient Subjective Stated Complaint: pt states 'i feel like my bladder is going to fall out", complains of flank and suprapubic pain. reports pain with urination. denies hematuria. Triage Nursing Assessment: pt is aox3, pupils perrl, resps easy non labored, radial pulses strong and equal, abd soft nontender, bowel sounds present and normoactivex4 Physician History: pt states 'i feel like my bladder is going to fall out", complains of flank and suprapubic pain. reports pain with urination. denies hematuria. Timing/Duration: today Quality: burning, cramping Abdominal Pain Onset Location: suprapubic Pain Radiation: no radiation Severity of Pain-Max: mild Severity of Pain-Current: mild Allergies/Adverse Reactions: warfarin sodium [From Coumadin] Adverse Reaction (Severe, Verified 03/04/17 20: 26) Platelet count drop significantly Home Medications: Cyclobenzaprine HCl [Flexeril] 10 mg PO HSPRN PRN 01/09/13 [History] Pramipexole Di-HCl [Mirapex] 1.5 mg PO HS 01/09/13 [History] Hydrocodone/APAP 10/325 mg [[place] 10/325 MG Tablet] 1 tab PO TIDPRN PRN [History] Fluoxetine HCl [Prozac] 20 mg PO HS 09/05/14 [History] Lisinopril 10 mg [Zestril 10 MG] 5 mg PO DAILY 04/01/15 [History] Loratadine [Claritin] 10 mg PO DAILY 04/01/15 [History] Milnacipran HCl [Savella] 50 mg PO BID 04/01/15 [History] Pregabalin [Lyrica] 75 cap PO BID 04/01/15 [History] Ropinirole HCl [Requip] 1 mg PO HSPRN PRN 04/01/15 [History] Temazepam 15 mg [Restoril 15 MG] 15 mg PO HS 01/01/16 [History] Hx Tetanus, Diphtheria Vaccination/Date Given: Yes Hx Influenza Vaccination/Date Given: Yes Hx Pneumococcal Vaccination/Date Given: No Immunizations Up to Date: Yes - Review of Systems Constitutional: No Fever, No Chills Eyes: No Symptoms Ears, Nose, & Throat: No Symptoms Respiratory: No Cough, No Dyspnea Cardiac: No Chest Pain, No Edema, No Syncope Abdominal/Gastrointestinal: Abdominal Pain, No Nausea, No Vomiting, No Diarrhea Genitourinary Symptoms: Dysuria, Frequency, Hesitancy, Urgency, Flank Pain, No Hematuria, No Incontinence, No Urinary Retention Musculoskeletal: No Back Pain, No Neck Pain Skin: No Rash Neurological: No Dizziness, No Focal Weakness, No Sensory Changes Psychological: No Symptoms Endocrine: No Symptoms All Other Systems: Reviewed and Negative - Past Medical History Pertinent Past Medical History: Yes Neurological History: Migraines ENT History: No Pertinent History Cardiac History: Deep Vein Thrombosis, Hypertension Respiratory History: Pulmonary Embolism Endocrine Medical History: No Pertinent History Musculoskeletal History: Arthritis, Fibromyalgia GI Medical History: Crohns Disease History: No Pertinent History Psycho-Social History: Anxiety, Depression Female Reproductive Disorders: No Pertinent History Other Medical History: restless leg syndrome.DVT hx - Past Surgical History Past Surgical History: Yes Neuro Surgical History: No Pertinent History Cardiac: No Pertinent History Respiratory: No Pertinent History Gastrointestinal: Hernia Repair Genitourinary: No Pertinent History Musculoskeletal: No Pertinent History, Other Female Surgical History: Hysterectomy, Tubal Ligation Other Surgical History: groshong placement/removed, port placement/removed, left hand surgery, plantar fasciatits repair, heel spur removal - Social History Smoking Status: Current every day smoker How long have you smoked: 30 Exposure to second hand smoke: Yes Drug Use: none Patient Lives Alone: No - Female History Hx Last Menstrual Period: 2014 Hx Now: No - Nursing Vital Signs Nursing Vital Signs: Initial Vital Signs Temperature 98.9 F 03/04/17 20:19 Pulse Rate 86 03/04/17 20:19 Respiratory Rate 18 03/04/17 20:19 Blood Pressure 139/87 03/04/17 20:19 O2 Sat by Pulse Oximetry 100 03/04/17 20:19 Pain Scale Pain Intensity 8 - Physical Exam General Appearance: no apparent distress Eye Exam: PERRL/EOMI Ears, Nose, Throat Exam: normal ENT inspection Neck Exam: normal inspection Respiratory Exam: normal breath sounds Cardiovascular Exam: regular rate/rhythm Gastrointestinal/Abdomen Exam: soft Back Exam: normal inspection Neurologic Exam: alert, oriented x 3 SpO2: 100 Oxygen Delivery: Room Air - Course Nursing assessment & vital signs reviewed: Yes Ordered Tests: Active Orders 24 hr Category Date Time Status BMP Stat Lab 03/04/17 20:50 Completed CBC W DIFF Stat Lab 03/04/17 20:50 Completed CULTURE,URINE Stat Lab 03/04/17 20:45 Received UA W/ MICROSCOPIC Stat Lab 03/04/17 20:45 Completed Urine Triage Profile Stat Lab 03/04/17 20:45 Completed Medication Summary Discontinued Medications Generic Name Dose Route Start Last Admin Trade Name Geo PRN Reason Stop Dose Admin Ceftriaxone Sodium 1,000 mg 03/04/17 20:54 Rocephin 1000 Mg Inj IM 03/04/17 20:55 STAT ONE Ceftriaxone Sodium Confirm 03/04/17 21:13 Rocephin 1000 Mg Inj Administered 03/04/17 21:14 Dose 1,000 mg .ROUTE .STK-MED ONE Lidocaine HCl Confirm 03/04/17 21:14 Xylocaine 1% Hcl 20 Ml Mdv Administered 03/04/17 21:15 Dose 1 ml .ROUTE .STK-MED ONE Lab/Rad Data: Laboratory Result Diagrams 03/04/17 20:50 03/04/17 20:50 Laboratory Results 03/04/17 03/04/17 03/04/17 Range/Units 20:50 20:50 20:45 WBC 13.9 H (4.0-10.5) K/mm3 RBC 4.38 (4.1-5.4) M/mm3 Hgb 13.6 (12.0-16.0) gm/dl Hct 39.6 (35-47) % MCV 90.4 (78-100) fl MCH 31.1 (26-32) pg MCHC 34.3 (32-36) g/dl RDW 12.6 (11.5-14.0) % Plt Count 230 (150-450) K/mm3 MPV 11.0 H (6-9.5) fl Gran % 77.1 H (36.0-66.0) % Lymphocytes % 14.7 L (24.0-44.0) % Monocytes % 6.4 (0.0-12.0) % Eosinophils % 1.6 (0.00-5.0) % Basophils % 0.2 (0.0-0.4) % Basophils # 0.03 (0-0.4) Sodium 140 (136-145) mEq/L Potassium 4.2 (3.5-5.1) mEq/L Chloride 103 (98-107) mEq/L Carbon Dioxide 29.5 (21-32) mEq/L Anion Gap 11.8 (5-15) MEQ/L BUN 14 (9-20) mg/dL Creatinine 1.02 (0.55-1.30) mg/dl Estimated GFR > 60 ML/MIN Glucose 96 (70-110) MG/DL Calcium 9.2 (8.5-10.1) mg/dL Ur Collection Type Urine Color (YELLOW) Urine Appearance (CLEAR) Urine pH (5-6) Ur Specific [place] (1.005-1.025) Urine Protein (Negative) Urine Ketones (NEGATIVE) Urine Blood (0-5) Dwayne/ul Urine Nitrite (NEGATIVE) Urine Bilirubin (NEGATIVE) Urine Urobilinogen (0-1) mg/dL Ur Leukocyte Esterase (NEGATIVE) Urine Microscopic RBC (0-2) /HPF Urine Microscopic WBC (0-5) /HPF Ur Epithelial Cells (FEW) /HPF Urine Bacteria (NEGATIVE) /HPF Urine Glucose (NEGATIVE) mg/dL Urine Opiates Level NEG. (NEGATIVE) Ur Methadone NEG. (NEGATIVE) Urine Barbiturates NEG. (NEGATIVE) Ur Phencyclidine (PCP) NEG. (NEGATIVE) Urine Amphetamine NEG. (NEGATIVE) U Benzodiazepine Level NEG. (NEGATIVE) Urine Cocaine NEG. (NEGATIVE) Urine Marijuana (THC) NEG. (NEGATIVE) Specimen Received 03/04/17 Range/Units 20:45 WBC (4.0-10.5) K/mm3 RBC (4.1-5.4) M/mm3 Hgb (12.0-16.0) gm/dl Hct (35-47) % MCV (78-100) fl MCH (26-32) pg MCHC (32-36) g/dl RDW (11.5-14.0) % Plt Count (150-450) K/mm3 MPV (6-9.5) fl Gran % (36.0-66.0) % Lymphocytes % (24.0-44.0) % Monocytes % (0.0-12.0) % Eosinophils % (0.00-5.0) % Basophils % (0.0-0.4) % Basophils # (0-0.4) Sodium (136-145) mEq/L Potassium (3.5-5.1) mEq/L Chloride (98-107) mEq/L Carbon Dioxide (21-32) mEq/L Anion Gap (5-15) MEQ/L BUN (9-20) mg/dL Creatinine (0.55-1.30) mg/dl Estimated GFR ML/MIN Glucose (70-110) MG/DL Calcium (8.5-10.1) mg/dL Ur Collection Type CLEAN CATCH Urine Color YELLOW (YELLOW) Urine Appearance CLOUDY (CLEAR) Urine pH 7.0 (5-6) Ur Specific [place] 1.010 (1.005-1.025) Urine Protein 500 (Negative) Urine Ketones NEGATIVE (NEGATIVE) Urine Blood 250 (0-5) Dwayne/ul Urine Nitrite NEGATIVE (NEGATIVE) Urine Bilirubin NEGATIVE (NEGATIVE) Urine Urobilinogen 4 (0-1) mg/dL Ur Leukocyte Esterase 2+ (NEGATIVE) Urine Microscopic RBC 5-10 (0-2) /HPF Urine Microscopic WBC 25-50 (0-5) /HPF Ur Epithelial Cells FEW (FEW) /HPF Urine Bacteria FEW (NEGATIVE) /HPF Urine Glucose NEGATIVE (NEGATIVE) mg/dL Urine Opiates Level (NEGATIVE) Ur Methadone (NEGATIVE) Urine Barbiturates (NEGATIVE) Ur Phencyclidine (PCP) (NEGATIVE) Urine Amphetamine (NEGATIVE) U Benzodiazepine Level (NEGATIVE) Urine Cocaine (NEGATIVE) Urine Marijuana (THC) (NEGATIVE) Specimen Received 03/04/172044 - Progress Progress: improved Counseled pt/family regarding: lab results, diagnosis, need for follow-up - Departure Time of Disposition: 21:19 Departure Disposition: Home Clinical Impression: Urinary tract infection Qualifiers: Urinary tract infection type: acute cystitis Hematuria presence: without hematuria Qualified Code(s): N30.00 - Acute cystitis without hematuria Condition: Stable Critical Care Time: No Referrals: ESTEBAN SOLITARIO [Primary Care Provider] - Instructions: Urinary Tract Infection (UTI) Additional Instructions: URINARY TRACT INFECTION 1. You will need to drink plenty of fluids in order to keep your urinary system flushed. These fluids should mainly consist of water and juices. 2. Take medications as directed. You need to completely finish any antiobiotic prescription given. 3. Try to avoid coffee, tea, alcohol, and seasoned foods as they may cause bladder irritation. 4. If signs and symptoms persist after 3-4 days, you will need to follow up with your family physician. 5. Female Patients: A. Avoid intercourse for 3-4 days. B. Empty bladder before and after intercourse to reduce risk of re- infection. C. After emptying bladder, wipe from front to back to reduce the risk of re- infection. Please follow the instructions given to you. Please take your medication as prescribed if given. If symptoms recur or get worse, come back to the emergency room if you cannot reach your primary care physician, or call your primary care physician for an appointment. Again if your symptoms get worse, come back to the emergency room. Thanks for visiting emergency room, and let us take care of you. Prescriptions: Smz/Tmp Ds Tablet [Bactrim Ds Tablet] 1 udtab PO BID #20 tablet
[2017-03-04] MEDS ORDERED: Rocephin 1000 MG INJ IM ONE (20:54)
[2017-03-04 21:00] LABS: BASOPHIL % 0.2 % (0.0-0.4); Eosinophil % 1.6 % (0.00-5.0); Granulocytes % 77.1 % (36.0-66.0); Lymphocytes % 14.7 % (24.0-44.0); Mean Cell Volume 90.4 fl (78-100); Mean Corpuscular Hemoglobin 31.1 pg (26-32); Monocytes % 6.4 % (0.0-12.0); Platelet Count 230 K/mm3 (150-450); Red Blood Count 4.38 M/mm3 (4.1-5.4); Red Cell Distribution Width 12.6 % (11.5-14.0); White Blood Count 13.9 K/mm3 (4.0-10.5)
[2017-03-04 21:09] LABS: Collection Type CLEAN CATCH; Leukocyte Esterase 2+ (NEGATIVE)
[2017-03-04 21:10] LABS: Bacteria FEW /HPF (NEGATIVE); Bilirubin NEGATIVE (NEGATIVE); Blood 250 Ery/ul (0-5); COMPLETE URINE MICROSCOPIC? YES; Epithelial Cells FEW /HPF (FEW); Glucose NEGATIVE (NEGATIVE); WBC 25-50 /HPF (0-5)
[2017-03-04 21:11] LABS: ADD URINE CULTURE? YES (NO)
[2017-03-04] MEDS ORDERED: Rocephin 1000 MG INJ ONE (21:13)
[2017-03-04] MEDS ORDERED: XYLOCAINE 1% HCL 20 ML MDV ONE (21:14)
[2017-03-04 21:18] LABS: ANION GAP 11.8 MEQ/L (5-15); BLOOD UREA NITROGEN 14 mg/dL (9-20); CHLORIDE 103 mEq/L (98-107); Carbon Dioxide 29.5 mEq/L (21-32); Glucose 96 MG/DL (70-110); Potassium 4.2 mEq/L (3.5-5.1); SODIUM 140 mEq/L (136-145)
[2017-03-04 22:04] VITALS: BP 130/80; PULSE 80; O2SAT 98
== END 2017-03-04 21:45 | disposition home or self-care (01) ==
LOC: ED 19:37
DX: N30.00 Acute cystitis without hematuria (principal); R10.9 Unspecified abdominal pain; R30.0 Dysuria; Z79.891 Long term (current) use of opiate analgesic; Z79.899 Other long term (current) drug therapy
CPT/HCPCS: 36415; 80048; 80307; 81000; 85025; 87077; 87086; 87186; 96372; 99283; J0696

== ENCOUNTER 2017-08-08 12:25 | Emergency (ER) | payer MEDICARE ==
[2017-08-08] MEDS ORDERED: Lactated Ringers 1,000 ML IV ONE (12:51)
[2017-08-08] MEDS ORDERED: Lactated Ringers 1,000 ML IV SCH (13:00)
[2017-08-08 13:08] LABS: BASOPHIL % 0.6 % (0.0-0.4); Basophil (Absolute #) 0.03 (0-0.4); Eosinophil % 3.8 % (0.00-5.0); Eosinophil (Absolute #) 0.18 (0-0.5); Granulocyte Absolute (ANC) 2.77 (1.4-6.9); Granulocytes % 58.4 % (36.0-66.0); Hematocrit 38.6 % (35-47); Lymphocyte (Absolute #) 1.44 (1.0-4.6); Lymphocytes % 30.3 % (24.0-44.0); Mean Cell Volume 88.7 fl (78-100); Mean Corpuscular Hemoglobin 29.9 pg (26-32); Mean Corpuscular Hgb Concent. 33.7 g/dl (32-36); Monocyte (Absolute #) 0.33 (0.0-1.3); Monocytes % 6.9 % (0.0-12.0); Platelet Count 189 K/mm3 (150-450); Red Blood Count 4.35 M/mm3 (4.1-5.4); Red Cell Distribution Width 13.1 % (11.5-14.0); White Blood Count 4.8 K/mm3 (4.0-10.5)
--- NOTE | 2017-08-08 13:08 | XRAY ---
Indication: Chest tightness. Flulike symptoms. Comparison: July 29, 2016. PA/lateral chest again demonstrates normal heart and lungs with a few incidental calcific granulomas. Bony thorax intact again with minimal degenerative changes. Impression: Stable nonacute chest with chronic features.
[2017-08-08] MEDS ORDERED: DUONEB 0.5-3 MG/3 ml Neb IH ONE ×2 (13:17→13:54)
--- NOTE | 2017-08-08 13:20 | ERPHSYRPT ---
- History of Present Illness Time Seen by Provider: 08/08/17 12:46 Source: patient, family Patient Subjective Stated Complaint: Pt states "My doctor sent me over here. I have the flu I think and my chest is tight." Triage Nursing Assessment: Pt alert and oriented X 3, skin pwd. PT ambulates with an upright steady gait, able to speak in clear full sentences. Pt wearing a mask, intermittant coughing, no apparent respiratory distress. Physician History: CC: aches hx: 47 y/o patient of Dr Yoder with hx of crohns disease. She has myalgias, aches all over, chest tightness, smoker. Uses prn alb inhalers. No vomiting or diarrhea but feels fatigue. She went to Dr Yoder who sent to ER for heart and flu test. Severity: moderate Allergies/Adverse Reactions: warfarin sodium [From Coumadin] Adverse Reaction (Severe, Verified 03/04/17 20: 26) Platelet count drop significantly Home Medications: Cyclobenzaprine HCl [Flexeril] 10 mg PO HSPRN PRN 01/09/13 [History] Pramipexole Di-HCl [Mirapex] 1.5 mg PO HS 01/09/13 [History] Hydrocodone/APAP 10/325 mg [Tyler 10/325 MG Tablet] 1 tab PO TIDPRN PRN [History] Fluoxetine HCl [Prozac] 20 mg PO HS 09/05/14 [History] Lisinopril 10 mg [Zestril 10 MG] 5 mg PO DAILY 04/01/15 [History] Loratadine [Claritin] 10 mg PO DAILY 04/01/15 [History] Milnacipran HCl [Savella] 50 mg PO BID 04/01/15 [History] Pregabalin [Lyrica 75 mg Cap] 75 cap PO BID 04/01/15 [History] Ropinirole HCl [Requip] 1 mg PO HSPRN PRN 04/01/15 [History] Temazepam 15 mg [Restoril 15 MG] 15 mg PO HS 01/01/16 [History] Hx Tetanus, Diphtheria Vaccination/Date Given: Yes Hx Influenza Vaccination/Date Given: Yes Hx Pneumococcal Vaccination/Date Given: No Immunizations Up to Date: Yes - Review of Systems Constitutional: Fatigue, Malaise, Weakness, No Fever, No Chills Eyes: No Symptoms Ears, Nose, & Throat: Nose Congestion Respiratory: Cough Cardiac: Chest Pain (tightness) Abdominal/Gastrointestinal: No Abdominal Pain, No Nausea, No Vomiting, No Diarrhea Genitourinary Symptoms: No Dysuria Skin: No Rash Neurological: No Headache All Other Systems: Reviewed and Negative - Past Medical History Pertinent Past Medical History: Yes Neurological History: Migraines ENT History: No Pertinent History Cardiac History: Deep Vein Thrombosis, Hypertension Respiratory History: Pulmonary Embolism Endocrine Medical History: No Pertinent History Musculoskeletal History: Arthritis, Fibromyalgia GI Medical History: Crohns Disease History: No Pertinent History Psycho-Social History: Anxiety, Depression Female Reproductive Disorders: No Pertinent History Other Medical History: restless leg syndrome.DVT hx - Past Surgical History Past Surgical History: Yes Neuro Surgical History: No Pertinent History Cardiac: No Pertinent History Respiratory: No Pertinent History Gastrointestinal: Hernia Repair Genitourinary: No Pertinent History Musculoskeletal: No Pertinent History, Other Female Surgical History: Hysterectomy, Tubal Ligation Other Surgical History: groshong placement/removed, port placement/removed, left hand surgery, plantar fasciatits repair, heel spur removal - Social History Smoking Status: Current every day smoker How long have you smoked: 20 year Exposure to second hand smoke: Yes Drug Use: none Patient Lives Alone: No - Female History Hx Last Menstrual Period: hysterectomy Hx Now: No - Nursing Vital Signs Nursing Vital Signs: Initial Vital Signs Temperature 98.0 F 08/08/17 12:30 Pulse Rate 82 08/08/17 12:30 Respiratory Rate 18 08/08/17 12:30 Blood Pressure 134/86 08/08/17 12:30 O2 Sat by Pulse Oximetry 98 08/08/17 12:30 Pain Scale Pain Intensity 2 - Physical Exam General Appearance: alert Eye Exam: PERRL/EOMI Ears, Nose, Throat Exam: dry mucous membranes Neck Exam: normal inspection, non-tender, supple Respiratory Exam: normal breath sounds, No respiratory distress, No wheezing Cardiovascular Exam: regular rate/rhythm Gastrointestinal/Abdomen Exam: soft, No tenderness, No distention, No mass, No guarding Extremity Exam: normal inspection, normal range of motion, No calf tenderness, No pedal edema Neurologic Exam: alert, oriented x 3, cooperative, sensation nml, No motor deficits Skin Exam: warm, dry, No rash SpO2 Interpretation: normal SpO2: 98 Oxygen Delivery: Room Air - Course Nursing assessment & vital signs reviewed: Yes EKG Interpreted by Me: RATE (74), Sinus Rhythm, NORMAL AXIS, NORMAL INTERVALS ( "QT"c 446), NORMAL QRS, NORMAL ST-T - Radiology Exams cxr X-ray Interpretation: Teleradiologist Report, Negative Ordered Tests: Active Orders 24 hr Category Date Time Status Clean Catch Urine Specimen STAT Care 08/08/17 12:46 Active EKG-ER Only STAT Care 08/08/17 12:46 Active IV Insertion STAT Care 08/08/17 12:46 Active CHEST 2 VIEWS (PA AND LAT) Stat Exams 08/08/17 12:46 Completed CBC W DIFF Stat Lab 08/08/17 12:47 Completed CMP Stat Lab 08/08/17 12:47 Completed TROPONIN Q3H Lab 08/08/17 12:47 Completed TROPONIN Q3H Lab 08/08/17 15:44 Completed TROPONIN Q3H Lab 08/08/17 19:00 Ordered TROPONIN Q3H Lab 08/08/17 22:00 Ordered TROPONIN Q3H Lab 08/09/17 01:00 Ordered UA W/ MICROSCOPIC Stat Lab 08/08/17 12:46 Completed Respiratory Nebulizer STAT RT 08/08/17 13:17 Completed Medication Summary Generic Name Dose Route Start Last Admin Trade Name Freq PRN Reason Stop Dose Admin Lactated Ringer's 1,000 mls @ 150 mls/hr 08/08/17 13:00 08/08/17 13:02 Lactated Ringers IV 09/07/17 12:59 150 mls/hr .[id number] ZURDO Administration Discontinued Medications Generic Name Dose Route Start Last Admin Trade Name Freq PRN Reason Stop Dose Admin Hydrocodone Bitart/Acetaminophen 1 tab 08/08/17 14:05 08/08/17 14:12 Tyler 5/325 Mg PO 08/08/17 14:06 1 tab STAT ONE Administration Hydrocodone Bitart/Acetaminophen Confirm 08/08/17 14:07 Tyler 5/325 Mg Administered 08/08/17 14:08 Dose 1 tab .ROUTE .STK-MED ONE Albuterol/Ipratropium 3 ml 08/08/17 13:17 08/08/17 13:55 Duoneb 0.5-3 Mg/3 Ml Neb IH 08/08/17 13:18 3 ml STAT ONE Administration Albuterol/Ipratropium Confirm 08/08/17 13:54 Duoneb 0.5-3 Mg/3 Ml Neb Administered 08/08/17 13:55 Dose 3 ml IH .STK-MED ONE Lab/Rad Data: Laboratory Result Diagrams 08/08/17 12:47 08/08/17 12:47 Laboratory Results 08/08/17 08/08/17 08/08/17 Range/Units 15:44 13:02 12:47 WBC (4.0-10.5) K/mm3 RBC (4.1-5.4) M/mm3 Hgb (12.0-16.0) gm/dl Hct (35-47) % MCV (78-100) fl MCH (26-32) pg MCHC (32-36) g/dl RDW (11.5-14.0) % Plt Count (150-450) K/mm3 MPV (6-9.5) fl Gran % (36.0-66.0) % Lymphocytes % (24.0-44.0) % Monocytes % (0.0-12.0) % Eosinophils % (0.00-5.0) % Basophils % (0.0-0.4) % Basophils # (0-0.4) Sodium (137-145) mmol/L Potassium (3.5-5.1) mmol/L Chloride (98-107) mEq/L Carbon Dioxide (22-30) mmol/L Anion Gap MEQ/L BUN (7-17) mg/dL Creatinine (0.52-1.04) mg/dl Estimated GFR ML/MIN Glucose (74-106) mg/dL Calcium (8.4-10.2) mg/dL Total Bilirubin (0.2-1.3) mg/dL AST (14-36) U/L ALT (0-35) U/L Alkaline Phosphatase (38-126) U/L Troponin I < 0.012 < 0.012 (0.000-0.034) ng/mL Serum Total Protein (6.3-8.2) mg/dL Albumin (3.5-5.0) g/dL Ur Collection Type Urine Color (YELLOW) Urine Appearance (CLEAR) Urine pH (5-6) Ur Specific [place] (1.005-1.025) Urine Protein (Negative) Urine Ketones (NEGATIVE) Urine Blood (0-5) Dwayne/ul Urine Nitrite (NEGATIVE) Urine Bilirubin (NEGATIVE) Urine Urobilinogen (0-1) mg/dL Ur Leukocyte Esterase (NEGATIVE) Urine Microscopic RBC (0-2) /HPF Urine Microscopic WBC (0-5) /HPF Ur Epithelial Cells (FEW) /HPF Urine Bacteria (NEGATIVE) /HPF Urine Culture Reflexed (NO) Urine Glucose (NEGATIVE) mg/dL Influenza Type A Ag NEGATIVE (NEGATIVE) Influenza Type B Ag NEGATIVE (NEGATIVE) RSV (PCR) NEGATIVE (Negative) Specimen Received 08/08/17 08/08/17 08/08/17 Range/Units 12:47 12:47 12:46 WBC 4.8 (4.0-10.5) K/mm3 RBC 4.35 (4.1-5.4) M/mm3 Hgb 13.0 (12.0-16.0) gm/dl Hct 38.6 (35-47) % MCV 88.7 (78-100) fl MCH 29.9 (26-32) pg MCHC 33.7 (32-36) g/dl RDW 13.1 (11.5-14.0) % Plt Count 189 (150-450) K/mm3 MPV 11.0 H (6-9.5) fl Gran % 58.4 (36.0-66.0) % Lymphocytes % 30.3 (24.0-44.0) % Monocytes % 6.9 (0.0-12.0) % Eosinophils % 3.8 (0.00-5.0) % Basophils % 0.6 (0.0-0.4) % Basophils # 0.03 (0-0.4) Sodium 138 (137-145) mmol/L Potassium 3.9 (3.5-5.1) mmol/L Chloride 103 (98-107) mEq/L Carbon Dioxide 28 (22-30) mmol/L Anion Gap 11.6 MEQ/L BUN 11 (7-17) mg/dL Creatinine 0.70 (0.52-1.04) mg/dl Estimated GFR > 60 ML/MIN Glucose 98 (74-106) mg/dL Calcium 9.4 (8.4-10.2) mg/dL Total Bilirubin 0.30 (0.2-1.3) mg/dL AST 19 (14-36) U/L ALT 11 (0-35) U/L Alkaline Phosphatase 84 (38-126) U/L Troponin I (0.000-0.034) ng/mL Serum Total Protein 6.8 (6.3-8.2) mg/dL Albumin 4.1 (3.5-5.0) g/dL Ur Collection Type CLEAN CATCH Urine Color YELLOW (YELLOW) Urine Appearance CLEAR (CLEAR) Urine pH 5.0 (5-6) Ur Specific [place] 1.010 (1.005-1.025) Urine Protein NEGATIVE (Negative) Urine Ketones NEGATIVE (NEGATIVE) Urine Blood TRACE NON-HEM (0-5) Dwayne/ul Urine Nitrite NEGATIVE (NEGATIVE) Urine Bilirubin NEGATIVE (NEGATIVE) Urine Urobilinogen NORMAL (0-1) mg/dL Ur Leukocyte Esterase NEGATIVE (NEGATIVE) Urine Microscopic RBC 5-10 (0-2) /HPF Urine Microscopic WBC 0-2 (0-5) /HPF Ur Epithelial Cells FEW (FEW) /HPF Urine Bacteria FEW (NEGATIVE) /HPF Urine Culture Reflexed NO (NO) Urine Glucose NEGATIVE (NEGATIVE) mg/dL Influenza Type A Ag (NEGATIVE) Influenza Type B Ag (NEGATIVE) RSV (PCR) (Negative) Specimen Received 08/08/17 1345 - Progress Progress Note: 08/08/17 16:52 cxr neg. EKG neg. Flu and troponin X2 negative. She was given IVF. Drinking. Appears better. Called Dr Calles for Beba and will release home with symptom instructions. Counseled pt/family regarding: lab results, diagnosis, need for follow-up, rad results - Departure Time of Disposition: 16:53 Departure Disposition: Home Clinical Impression: Viral syndrome Condition: Stable Critical Care Time: No Referrals: ESTEBAN YODER [Primary Care Provider] - Instructions: Cough, Adult (DC), Viral Upper Respiratory Infection, Adult (DC) Additional Instructions: UPPER RESPIRATORY INFECTIONS 1. The signs and symptoms of a cold may last up to 10 days. These illnesses are due to viruses which are not treatable with antibiotics. 2. The following suggestions can aid in recovery and to minimize symptoms: A. Increase fluid intake. B. Acetaminophen or Ibuprofen as directed. C. Avoid smoking environments as this will increase the risk of developing pneumonia. D. For children, may use a cool mist vaporizer in the child's room. 3. Contact your Family Physician if you note: A. Persisten fever >103 for more than 3 days B. Breathing difficulty C. Productive cough of yellow/green sputum D. Illness greater than 7 days E. Persistent vomiting F. Stiff neck Sip fluids. Use your albuterol inhaler as directed. Follow up with Dr Yoder.
[2017-08-08] MEDS ORDERED: NORCO 5/325 MG PO ONE (14:05)
[2017-08-08] MEDS ORDERED: NORCO 5/325 MG ONE (14:07)
[2017-08-08 14:13] LABS: Appearance CLEAR (CLEAR); Glucose NEGATIVE (NEGATIVE); Ketones NEGATIVE (NEGATIVE); Leukocyte Esterase NEGATIVE (NEGATIVE); Nitrite NEGATIVE (NEGATIVE); Protein,Urine Dip NEGATIVE (Negative); Urobilinogen NORMAL mg/dL (0-1)
[2017-08-08 14:14] LABS: Bacteria FEW /HPF (NEGATIVE); Bilirubin NEGATIVE (NEGATIVE); Blood TRACE NON-HEM Ery/ul (0-5); Epithelial Cells FEW /HPF (FEW); WBC 0-2 /HPF (0-5)
[2017-08-08 14:23] LABS: INFLUENZA A NEGATIVE (NEGATIVE); INFLUENZA B NEGATIVE (NEGATIVE); RESPIRATORY SYNCTIAL VIRUS NEGATIVE (Negative)
[2017-08-08 14:24] LABS: ALBUMIN 4.1 g/dL (3.5-5.0); ALKALINE PHOSPHATASE 84 U/L (38-126); BLOOD UREA NITROGEN 11 mg/dL (7-17); CHLORIDE 103 mEq/L (98-107); Calcium 9.4 mg/dL (8.4-10.2); Carbon Dioxide 28 mmol/L (22-30); Glucose 98 mg/dL (74-106); Potassium 3.9 mmol/L (3.5-5.1); SGOT/AST 19 U/L (14-36); SGPT/ALT 11 U/L (0-35); SODIUM 138 mmol/L (137-145); Total Protein 6.8 mg/dL (6.3-8.2)
[2017-08-08 15:02] LABS: ANION GAP 11.6 MEQ/L
[2017-08-08 17:14] VITALS: BP 132/70; PULSE 72; O2SAT 97
== END 2017-08-08 17:15 | disposition home or self-care (01) ==
LOC: ED 12:25
DX: B34.9 Viral infection, unspecified (principal); M79.1 Myalgia; R07.89 Other chest pain; R53.83 Other fatigue; Z79.899 Other long term (current) drug therapy
CPT/HCPCS: 36000; 36415; 71046; 80053; 81000; 84484; 85025; 87631; 94640; 96360; 96361; 99285; A9270-GY

== ENCOUNTER 2017-10-13 12:14 | Emergency (ER) | payer MEDICARE ==
--- NOTE | 2017-10-13 12:32 | ERPHSYRPT ---
- History of Present Illness Time Seen by Provider: 10/13/17 12:21 Source: patient Exam Limitations: no limitations Patient Subjective Stated Complaint: Pt states "I was diagnosed with a UTI and was given keflex to take at home. I took 2 pills instead of one to try and get it into my system faster and last night I had some slurred speech. I am also extremely jittery. I cannot sit still." Triage Nursing Assessment: Pt alert and oriented X 3, skin pwd Pt ambulates with an upright steady gait, able to speak in a clear full sentences. 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 Patient states that she has been having shakiness with walking for one half weeks she states that she's been having slurry speech for one and a half days. She is not having any movement disorder. She states that she was recently placed on Keflex for a UTI. Past medical history includes migraines, pulmonary embolism, DVT, high blood pressure, arthritis, fibromyalgia, Crohn's disease, anxiety, depression, restless leg syndrome Past surgical history includes hysterectomy, tubal ligation, Groshong placement , port placement which has been removed, left hand surgery, foot surgery Social history positive for tobacco use patient denies alcohol or illicit drug use Timing/Duration: other (patient states she's been feeling shaky with walking for `1 1/2 weeks, she states that she's had intermittent slurry speech for one and a half days) Severity: moderate Modifying Factors: Improves With: nothing Associated Symptoms: No nausea, No vomiting, No abdominal pain, No shortness of breath, No heartburn, No diaphoresis, No cough, No chills, No chest pain, No fever, No headaches, No loss of appetite, No malaise, No rash, No syncope, No seizure, No weakness Allergies/Adverse Reactions: warfarin sodium [From Coumadin] Adverse Reaction (Severe, Verified 08/09/17 14: 30) Platelet count drop significantly Home Medications: Cyclobenzaprine HCl [Flexeril] 10 mg PO HSPRN PRN 01/09/13 [History] Pramipexole Di-HCl [Mirapex] 1.5 mg PO HS 01/09/13 [History] Hydrocodone/APAP 10/325 mg [[place] 10/325 MG Tablet] 1 tab PO TIDPRN PRN [History] Fluoxetine HCl [Prozac] 20 mg PO HS 09/05/14 [History] Lisinopril 10 mg [Zestril 10 MG] 10 mg PO DAILY 04/01/15 [History] Loratadine [Claritin] 10 mg PO DAILY 04/01/15 [History] Milnacipran HCl [Savella] 50 mg PO BID 04/01/15 [History] Pregabalin [Lyrica 75 mg Cap] 75 cap PO BID 04/01/15 [History] Ropinirole HCl [Requip] 1 mg PO HSPRN PRN 04/01/15 [History] Temazepam 15 mg [Restoril 15 MG] 15 mg PO HS 01/01/16 [History] Hx Tetanus, Diphtheria Vaccination/Date Given: Yes Hx Influenza Vaccination/Date Given: Yes Hx Pneumococcal Vaccination/Date Given: No Immunizations Up to Date: Yes - Review of Systems Constitutional: Other (patient states she feels generally shaky, and shaky with walking 1-1/2 weeks), No Fever, No Chills Eyes: No Symptoms Ears, Nose, & Throat: No Symptoms Respiratory: No Cough, No Dyspnea Cardiac: No Chest Pain, No Edema, No Syncope Abdominal/Gastrointestinal: No Abdominal Pain, No Nausea, No Vomiting, No Diarrhea Genitourinary Symptoms: No Dysuria Musculoskeletal: No Back Pain, No Neck Pain Skin: No Rash Neurological: Other (patient states she's been shaky, and feeling shaky with walking for 1-1/2 weeks states intermittent slurry speech for one and one half days) Psychological: No Symptoms Endocrine: No Symptoms All Other Systems: Reviewed and Negative - Past Medical History Pertinent Past Medical History: Yes Neurological History: Migraines ENT History: No Pertinent History Cardiac History: Deep Vein Thrombosis, Hypertension Respiratory History: Pulmonary Embolism Endocrine Medical History: No Pertinent History Musculoskeletal History: Arthritis, Fibromyalgia GI Medical History: Crohns Disease History: No Pertinent History Psycho-Social History: Anxiety, Depression Female Reproductive Disorders: No Pertinent History Other Medical History: restless leg syndrome.DVT hx - Past Surgical History Past Surgical History: Yes Neuro Surgical History: No Pertinent History Cardiac: No Pertinent History Respiratory: No Pertinent History Gastrointestinal: Hernia Repair Genitourinary: No Pertinent History Musculoskeletal: No Pertinent History, Other Female Surgical History: Hysterectomy, Tubal Ligation Other Surgical History: groshong placement/removed, port placement/removed, left hand surgery, plantar fasciatits repair, heel spur removal - Social History Smoking Status: Current every day smoker How long have you smoked: years Exposure to second hand smoke: Yes Drug Use: none Patient Lives Alone: No - Female History Hx Last Menstrual Period: hysterectomy Hx Now: No - Nursing Vital Signs Nursing Vital Signs: Initial Vital Signs Temperature 98.9 F 10/13/17 12:18 Pulse Rate 102 H 10/13/17 12:18 Respiratory Rate 16 10/13/17 12:18 Blood Pressure 133/80 10/13/17 12:18 O2 Sat by Pulse Oximetry 100 10/13/17 12:18 Pain Scale Pain Intensity 0 - Physical Exam General Appearance: no apparent distress, alert Eye Exam: PERRL/EOMI, eyes nml inspection Ears, Nose, Throat Exam: normal ENT inspection, TMs normal, pharynx normal, moist mucous membranes Neck Exam: normal inspection, non-tender, supple, full range of motion Respiratory Exam: normal breath sounds, lungs clear, No respiratory distress Cardiovascular Exam: regular rate/rhythm, normal heart sounds, normal peripheral pulses Gastrointestinal/Abdomen Exam: soft, normal bowel sounds, No tenderness, No mass Back Exam: normal inspection, normal range of motion, No CVA tenderness, No vertebral tenderness Extremity Exam: normal inspection, normal range of motion, pelvis stable Neurologic Exam: alert, oriented x 3, cooperative, skiing 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 II-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 nml as tested, normal mood/affect, nml cerebellar function, nml station & gait, sensation nml, other (general production manager equal and symmetrical 5 over 5,, normal finger to nose, no pronator drift), No motor deficits, No sensory deficit, No disoriented, No confusion, No agitation, No uncooperative, No intoxicated appearance, No depressed mood/affect, No motor weakness, No facial droop, No slurred speech, No aphasia, No dysarthria, No abnormal gait, No abnormal cerebellar tests, No abnormal skiing teacher II-XII Skin Exam: normal color, warm, dry, No rash Lymphatic Exam: No adenopathy SpO2 Interpretation: normal (100%) SpO2: 100 Oxygen Delivery: Room Air - Course Nursing assessment & vital signs reviewed: Yes EKG Interpreted by Me: RATE (85 bpm), Sinus Rhythm, NORMAL AXIS, Other (EKG: Sinus rhythm, 85 beats per minute, normal axis, no acute ST or T wave changes noted, essentially normal EKG) - CT Exams Head CT Interpretation: Discussed w/radiologist, Other (stable normal head ct without contrast) Ordered Tests: Active Orders 24 hr Category Date Time Status Accucheck STAT Care 10/13/17 12:25 Active EKG-ER Only STAT Care 10/13/17 12:25 Active IV Insertion STAT Care 10/13/17 12:25 Active HEAD WITHOUT CONTRAST [CT] Stat Exams 10/13/17 12:25 Completed CBC W DIFF Stat Lab 10/13/17 12:27 Completed CMP Stat Lab 10/13/17 12:27 Completed CULTURE,URINE Stat Lab 10/13/17 12:27 Received UA W/ MICROSCOPIC Stat Lab 10/13/17 12:27 Completed Urine Triage Profile Stat Lab 10/13/17 12:27 Completed Lab/Rad Data: Laboratory Result Diagrams 10/13/17 12:27 10/13/17 12:27 Laboratory Results 10/13/17 10/13/17 10/13/17 Range/Units 12:27 12:27 12:27 WBC (4.0-10.5) K/mm3 RBC (4.1-5.4) M/mm3 Hgb (12.0-16.0) gm/dl Hct (35-47) % MCV (78-100) fl MCH (26-32) pg MCHC (32-36) g/dl RDW (11.5-14.0) % Plt Count (150-450) K/mm3 MPV (6-9.5) fl Gran % (36.0-66.0) % Eos # (Auto) (0-0.5) Absolute Lymphs (auto) (1.0-4.6) Absolute Monos (auto) (0.0-1.3) Lymphocytes % (24.0-44.0) % Monocytes % (0.0-12.0) % Eosinophils % (0.00-5.0) % Basophils % (0.0-0.4) % Absolute Granulocytes (1.4-6.9) Basophils # (0-0.4) Sodium 138 (137-145) mmol/L Potassium 4.0 (3.5-5.1) mmol/L Chloride 102 (98-107) mmol/L Carbon Dioxide 25 (22-30) mmol/L Anion Gap 15.1 H (5-15) MEQ/L BUN 9 (7-17) mg/dL Creatinine 0.81 (0.52-1.04) mg/dL Estimated GFR > 60.0 ML/MIN Glucose 99 (74-106) mg/dL Calcium 9.5 (8.4-10.2) mg/dL Total Bilirubin 0.40 (0.2-1.3) mg/dL AST 18 (14-36) U/L ALT 13 (0-35) U/L Alkaline Phosphatase 113 (38-126) U/L Serum Total Protein 6.7 (6.3-8.2) g/dL Albumin 3.9 (3.5-5.0) g/dL Ur Collection Type CLEAN CATCH Urine Color YELLOW (YELLOW) Urine Appearance CLEAR (CLEAR) Urine pH 5.5 (5-6) Ur Specific [place] 1.005 (1.005-1.025) Urine Protein NEGATIVE (Negative) Urine Ketones NEGATIVE (NEGATIVE) Urine Blood 5-10 (0-5) Dwayne/ul Urine Nitrite NEGATIVE (NEGATIVE) Urine Bilirubin NEGATIVE (NEGATIVE) Urine Urobilinogen NORMAL (0-1) mg/dL Ur Leukocyte Esterase 1+ (NEGATIVE) Urine Microscopic RBC 5-10 (0-2) /HPF Urine Microscopic WBC 5-10 (0-5) /HPF Ur Epithelial Cells FEW (FEW) /HPF Urine Bacteria MODERATE (NEGATIVE) /HPF Urine Mucus SLIGHT (NEGATIVE) /HPF Urine Culture Reflexed YES (NO) Urine Glucose NEGATIVE (NEGATIVE) mg/dL Urine Opiates Level POSITIVE (NEGATIVE) Ur Methadone NEGATIVE (NEGATIVE) Urine Barbiturates NEGATIVE (NEGATIVE) Ur Phencyclidine (PCP) NEGATIVE (NEGATIVE) Urine Amphetamine NEGATIVE (NEGATIVE) U Benzodiazepine Level NEGATIVE (NEGATIVE) Urine Cocaine NEGATIVE (NEGATIVE) Urine Marijuana (THC) NEGATIVE (NEGATIVE) Specimen Received 10-13-17 1300 10/13/17 Range/Units 12:27 WBC 6.9 (4.0-10.5) K/mm3 RBC 4.71 (4.1-5.4) M/mm3 Hgb 14.0 (12.0-16.0) gm/dl Hct 41.2 (35-47) % MCV 87.5 (78-100) fl MCH 29.7 (26-32) pg MCHC 34.0 (32-36) g/dl RDW 13.4 (11.5-14.0) % Plt Count 230 (150-450) K/mm3 MPV 11.1 H (6-9.5) fl Gran % 71.3 H (36.0-66.0) % Eos # (Auto) 0.14 (0-0.5) Absolute Lymphs (auto) 1.45 (1.0-4.6) Absolute Monos (auto) 0.38 (0.0-1.3) Lymphocytes % 21.1 L (24.0-44.0) % Monocytes % 5.5 (0.0-12.0) % Eosinophils % 2.0 (0.00-5.0) % Basophils % 0.1 (0.0-0.4) % Absolute Granulocytes 4.90 (1.4-6.9) Basophils # 0.01 (0-0.4) Sodium (137-145) mmol/L Potassium (3.5-5.1) mmol/L Chloride (98-107) mmol/L Carbon Dioxide (22-30) mmol/L Anion Gap (5-15) MEQ/L BUN (7-17) mg/dL Creatinine (0.52-1.04) mg/dL Estimated GFR ML/MIN Glucose (74-106) mg/dL Calcium (8.4-10.2) mg/dL Total Bilirubin (0.2-1.3) mg/dL AST (14-36) U/L ALT (0-35) U/L Alkaline Phosphatase (38-126) U/L Serum Total Protein (6.3-8.2) g/dL Albumin (3.5-5.0) g/dL Ur Collection Type Urine Color (YELLOW) Urine Appearance (CLEAR) Urine pH (5-6) Ur Specific [place] (1.005-1.025) Urine Protein (Negative) Urine Ketones (NEGATIVE) Urine Blood (0-5) Dwayne/ul Urine Nitrite (NEGATIVE) Urine Bilirubin (NEGATIVE) Urine Urobilinogen (0-1) mg/dL Ur Leukocyte Esterase (NEGATIVE) Urine Microscopic RBC (0-2) /HPF Urine Microscopic WBC (0-5) /HPF Ur Epithelial Cells (FEW) /HPF Urine Bacteria (NEGATIVE) /HPF Urine Mucus (NEGATIVE) /HPF Urine Culture Reflexed (NO) Urine Glucose (NEGATIVE) mg/dL Urine Opiates Level (NEGATIVE) Ur Methadone (NEGATIVE) Urine Barbiturates (NEGATIVE) Ur Phencyclidine (PCP) (NEGATIVE) Urine Amphetamine (NEGATIVE) U Benzodiazepine Level (NEGATIVE) Urine Cocaine (NEGATIVE) Urine Marijuana (THC) (NEGATIVE) Specimen Received - Progress Progress: improved Progress Note: 10/13/17 13:42 This is a 47-year-old white female with history of migraines, pulmonary embolism , DVT, high blood pressure, arthritis, fibromyalgia, Crohn's disease, anxiety, depression, restless legs she arrives with complaint of 1-1/2 weeks of walking shakily, she states that she was seen by her family doctor Tuesday 3 days ago placed on Keflex after being given a shot of Rocephin she states that apparently had been taking her Keflex every 3 hours she states that she was experiencing a slurry speech for a day and a half. 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 Patient's vitals are stable, patient's EKG sinus rhythm [address] or T wave changes noted essentially normal EKG patient white count 6.9 hemoglobin 14.0 hematocrit 41.2 platelets 2:30 chemistry is within normal limits patient's urine which had shown greater than 100 white cells per high-power field on Tuesday now shows a 5-10 red cells and 5-10 white cells with negative nitrites Drug screen is positive for opiates however patient is on [place]. Patient appears to be stable Dr. Yoder had called the a replacement prescription for the Keflex. I've discussed the case with Dr. 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 Patient is already on elequis. Aspirin for the patient was discussed in view of her shaky walking and shaky speech , it is felt that aspirin was not indicated, and that the patient should take her Elequis as prescribed. Patient appeared to have a normal gait and normal neurological examination as well as normal speech. Patient will be advised to contact Dr. Yoder's office and arrange follow-up appointment. Patient is to return for acute distress or for severe symptoms - Departure Time of Disposition: 13:51 Departure Disposition: Home Clinical Impression: Speech disorder, Gait disturbance, UTI,currently undergoing treatment Condition: Fair Critical Care Time: No Referrals: ESTEBAN YODER [Primary Care Provider] - Additional Instructions: Return home. Rest plenty of fluids. Stop Keflex. Began Macrobid as prescribed by Dr. Yoder. Follow-up with Dr. Yoder, call her office and arrange follow-up appointment. Return for acute distress or for severe symptoms.
[2017-10-13 12:54] LABS: BASOPHIL % 0.1 % (0.0-0.4); Basophil (Absolute #) 0.01 (0-0.4); Eosinophil (Absolute #) 0.14 (0-0.5); Granulocytes % 71.3 % (36.0-66.0); Hematocrit 41.2 % (35-47); Lymphocyte (Absolute #) 1.45 (1.0-4.6); Lymphocytes % 21.1 % (24.0-44.0); Mean Cell Volume 87.5 fl (78-100); Mean Corpuscular Hemoglobin 29.7 pg (26-32); Mean Platelet Volume 11.1 fl (6-9.5); Monocyte (Absolute #) 0.38 (0.0-1.3); Monocytes % 5.5 % (0.0-12.0); Platelet Count 230 K/mm3 (150-450); Red Blood Count 4.71 M/mm3 (4.1-5.4); Red Cell Distribution Width 13.4 % (11.5-14.0); White Blood Count 6.9 K/mm3 (4.0-10.5)
--- NOTE | 2017-10-13 12:54 | XRAY ---
Indication: Slurred speech and shaking 1.5 weeks. Multiple contiguous axial images obtained through the head without contrast. Comparison: June 26, 2016. Again normal appearing brain parenchyma, ventricles, and bony calvarium. Visualized paranasal sinuses and mastoid air cells are clear. Impression: Stable normal CT head without contrast exam. CT DI 70.55
[2017-10-13 13:08] LABS: ALBUMIN 3.9 g/dL (3.5-5.0); ALKALINE PHOSPHATASE 113 U/L (38-126); ANION GAP 15.1 MEQ/L (5-15); BLOOD UREA NITROGEN 9 mg/dL (7-17); CHLORIDE 102 mmol/L (98-107); Calcium 9.5 mg/dL (8.4-10.2); Carbon Dioxide 25 mmol/L (22-30); Creatinine 1 0.81 mg/dL (0.52-1.04); Glucose 99 mg/dL (74-106); SGOT/AST 18 U/L (14-36); SGPT/ALT 13 U/L (0-35); SODIUM 138 mmol/L (137-145); Total Protein 6.7 g/dL (6.3-8.2)
[2017-10-13 13:18] LABS: Appearance CLEAR (CLEAR); Bilirubin NEGATIVE (NEGATIVE); Glucose NEGATIVE (NEGATIVE); Ketones NEGATIVE (NEGATIVE); Leukocyte Esterase 1+ (NEGATIVE); Nitrite NEGATIVE (NEGATIVE); Ph 5.5 (5-6); Protein,Urine Dip NEGATIVE (Negative); Specific Gravity 1.005 (1.005-1.025); Urobilinogen NORMAL mg/dL (0-1)
[2017-10-13 13:19] LABS: Bacteria MODERATE /HPF (NEGATIVE); Epithelial Cells FEW /HPF (FEW); Mucus SLIGHT /HPF (NEGATIVE)
[2017-10-13 13:24] LABS: Amphetamine,Urine NEGATIVE (NEGATIVE); Barbiturate,Urine NEGATIVE (NEGATIVE); Benzodiazepine,Urine NEGATIVE (NEGATIVE); Cocaine,Urine NEGATIVE (NEGATIVE); Methadone,Urine NEGATIVE (NEGATIVE); Opiate,Urine POSITIVE (NEGATIVE); PCP,Urine NEGATIVE (NEGATIVE); THC,Urine NEGATIVE (NEGATIVE)
[2017-10-13 13:55] VITALS: BP 143/83; PULSE 86; O2SAT 99
== END 2017-10-13 14:01 | disposition home or self-care (01) ==
LOC: ED 12:14
DX: R47.9 Unspecified speech disturbances (principal); R26.9 Unspecified abnormalities of gait and mobility; N39.0 Urinary tract infection, site not specified; Z79.899 Other long term (current) drug therapy
CPT/HCPCS: 36000; 36415; 70450; 80053; 80307; 81000; 82962; 85025; 87086; 93005; 99284

== ENCOUNTER 2019-08-12 18:38 | Emergency (ER) | payer MEDICARE ==
--- NOTE | 2019-08-12 18:59 | ERPHSYRPT ---
- History of Present Illness Source: patient Exam Limitations: no limitations Patient Subjective Stated Complaint: PT states "My whole body aches, my head hurts, I am congested, I feel horrible." Triage Nursing Assessment: PT presented alert and oriented X 3, skin wpd pt ambulates with an upright steady gait, able to speak in clear full sentences tp in no apparent respiratory distress. Timing/Duration: yesterday Cough Quality/Degree: dry cough Possible Cause: no prior episodes Modifying Factors: Improves With: coughing Associated Symptoms: fever, cough, nasal congestion, shortness of breath International travel in last 2 weeks: No Hx Tetanus, Diphtheria Vaccination/Date Given: Yes Hx Influenza Vaccination/Date Given: Yes Hx Pneumococcal Vaccination/Date Given: No Immunizations Up to Date: Yes <MELVIN ALBA - Last Filed: 08/12/19 18:56> <TANISHA CLAYTON - Last Filed: 08/12/19 19:50> - History of Present Illness Time Seen by Provider: 08/12/19 18:56 Physician History: Is a 49-year-old white female who says that last night she started with body aches and nonproductive cough and had fever. She did receive a flu shot this year. No other symptoms or complaints. (MELVIN ALBA) Allergies/Adverse Reactions: warfarin sodium [From Coumadin] Adverse Reaction (Severe, Verified 08/09/17 14: 30) Platelet count drop significantly Home Medications: Cyclobenzaprine HCl [Flexeril] 10 mg PO HSPRN PRN 01/09/13 [History] Pramipexole Di-HCl [Mirapex] 1.5 mg PO HS 01/09/13 [History] Fluoxetine HCl [Prozac] 20 mg PO HS 09/05/14 [History] Lisinopril 10 mg [Zestril 10 MG] 10 mg PO DAILY 04/01/15 [History] Loratadine [Claritin] 10 mg PO DAILY 04/01/15 [History] Milnacipran HCl [Savella] 50 mg PO BID 04/01/15 [History] Pregabalin [Lyrica 75 mg Cap] 75 cap PO BID 04/01/15 [History] Ropinirole HCl [Requip] 1 mg PO HSPRN PRN 04/01/15 [History] Temazepam 15 mg [Restoril 15 MG] 15 mg PO HS 01/01/16 [History] - Review of Systems Constitutional: Fever, Weakness Eyes: No Symptoms Ears, Nose, & Throat: No Symptoms Respiratory: Cough, Wheezing Cardiac: No Symptoms Abdominal/Gastrointestinal: No Symptoms Genitourinary Symptoms: No Symptoms Musculoskeletal: No Symptoms Skin: No Symptoms Neurological: No Symptoms Psychological: No Symptoms Endocrine: No Symptoms Hematologic/Lymphatic: No Symptoms Immunological/Allergic: No Symptoms <MELVIN ALBA - Last Filed: 08/12/19 18:56> - Past Medical History Pertinent Past Medical History: Yes Neurological History: Migraines ENT History: No Pertinent History Cardiac History: Deep Vein Thrombosis, Hypertension Respiratory History: Pulmonary Embolism Endocrine Medical History: No Pertinent History Musculoskeletal History: Arthritis, Fibromyalgia GI Medical History: Crohns Disease History: No Pertinent History Psycho-Social History: Anxiety, Depression Female Reproductive Disorders: No Pertinent History Other Medical History: restless leg syndrome.DVT hx - Past Surgical History Past Surgical History: Yes Neuro Surgical History: No Pertinent History Cardiac: No Pertinent History Respiratory: No Pertinent History Gastrointestinal: Hernia Repair Genitourinary: No Pertinent History Musculoskeletal: No Pertinent History, Other Female Surgical History: Hysterectomy, Tubal Ligation Other Surgical History: groshong placement/removed, port placement/removed, left hand surgery, plantar fasciatits repair, heel spur removal - Social History Smoking Status: Current every day smoker How long have you smoked: years Exposure to second hand smoke: Yes Drug Use: none Patient Lives Alone: No - Female History Hx Last Menstrual Period: hysterectomy Hx Now: No <MELVIN ALBA - Last Filed: 08/12/19 18:56> - Physical Exam General Appearance: no apparent distress, alert Eye Exam: PERRL/EOMI, eyes nml inspection Ears, Nose, Throat Exam: normal ENT inspection, TMs normal, pharynx normal, moist mucous membranes Neck Exam: normal inspection, non-tender, supple, full range of motion Respiratory Exam: rhonchi, wheezing, No respiratory distress Cardiovascular Exam: regular rate/rhythm, normal heart sounds Gastrointestinal/Abdomen Exam: soft, No tenderness Back Exam: normal inspection, No CVA tenderness, No vertebral tenderness Extremity Exam: normal inspection, normal range of motion Neurologic Exam: alert, oriented x 3, cooperative, normal mood/affect, sensation nml, No motor deficits Skin Exam: normal color, warm, dry, No rash Lymphatic Exam: No adenopathy SpO2: 98 <MELVIN ALBA - Last Filed: 08/12/19 18:56> - Nursing Vital Signs Nursing Vital Signs: Initial Vital Signs Temperature 97.7 F 08/12/19 18:42 Pulse Rate 90 08/12/19 18:42 Respiratory Rate 20 08/12/19 18:42 Blood Pressure 128/74 08/12/19 18:42 O2 Sat by Pulse Oximetry 98 08/12/19 18:42 Pain Scale Pain Intensity 8 - Course Nursing assessment & vital signs reviewed: Yes <MELVIN ALBA - Last Filed: 08/12/19 18:56> Ordered Tests: Active Orders 24 hr Category Date Time Status CHEST 2 VIEWS (PA AND LAT) Stat Exams 08/12/19 18:55 Taken CBC W DIFF Stat Lab 08/12/19 19:09 Completed CMP Stat Lab 08/12/19 19:09 Completed Lactic Acid Stat Lab 08/12/19 18:55 Completed Lab/Rad Data: Laboratory Result Diagrams 08/12/19 19:09 08/12/19 19:09 Laboratory Results 08/12/19 08/12/19 08/12/19 Range/Units 19:09 19:09 19:09 WBC 3.6 L (4.0-10.5) K/mm3 RBC 4.39 (4.1-5.4) M/mm3 Hgb 13.4 (12.0-16.0) gm/dl Hct 39.2 (35-47) % MCV 89.3 (78-100) fl MCH 30.5 (26-32) pg MCHC 34.2 (32-36) g/dl RDW 13.4 (11.5-14.0) % Plt Count 157 (150-450) K/mm3 MPV 10.9 (7.5-11.0) fl Gran % 66.5 H (36.0-66.0) % Eos # (Auto) 0.01 (0-0.5) Absolute Lymphs (auto) 0.74 L (1.0-4.6) Absolute Monos (auto) 0.43 (0.0-1.3) Lymphocytes % 20.6 L (24.0-44.0) % Monocytes % 12.0 (0.0-12.0) % Eosinophils % 0.3 (0.00-5.0) % Basophils % 0.6 (0.0-0.4) % Absolute Granulocytes 2.39 (1.4-6.9) Basophils # 0.02 (0-0.4) Sodium 139 (137-145) mmol/L Potassium 3.5 (3.5-5.1) mmol/L Chloride 107 (98-107) mmol/L Carbon Dioxide 26 (22-30) mmol/L Anion Gap 8.8 (5-15) MEQ/L BUN 12 (7-17) mg/dL Creatinine 0.80 (0.52-1.04) mg/dL Estimated GFR > 60.0 ML/MIN Glucose 104 (74-106) mg/dL Lactic Acid (0.4-2.0) Calcium 9.1 (8.4-10.2) mg/dL Total Bilirubin 0.30 (0.2-1.3) mg/dL AST 20 (14-36) U/L ALT 14 (0-35) U/L Alkaline Phosphatase 79 (38-126) U/L Serum Total Protein 6.9 (6.3-8.2) g/dL Albumin 3.9 (3.5-5.0) g/dL Influenza Type A Ag POSITIVE (NEGATIVE) Influenza Type B Ag NEGATIVE (NEGATIVE) RSV (PCR) NEGATIVE (Negative) 08/12/19 Range/Units 18:55 WBC (4.0-10.5) K/mm3 RBC (4.1-5.4) M/mm3 Hgb (12.0-16.0) gm/dl Hct (35-47) % MCV (78-100) fl MCH (26-32) pg MCHC (32-36) g/dl RDW (11.5-14.0) % Plt Count (150-450) K/mm3 MPV (7.5-11.0) fl Gran % (36.0-66.0) % Eos # (Auto) (0-0.5) Absolute Lymphs (auto) (1.0-4.6) Absolute Monos (auto) (0.0-1.3) Lymphocytes % (24.0-44.0) % Monocytes % (0.0-12.0) % Eosinophils % (0.00-5.0) % Basophils % (0.0-0.4) % Absolute Granulocytes (1.4-6.9) Basophils # (0-0.4) Sodium (137-145) mmol/L Potassium (3.5-5.1) mmol/L Chloride (98-107) mmol/L Carbon Dioxide (22-30) mmol/L Anion Gap (5-15) MEQ/L BUN (7-17) mg/dL Creatinine (0.52-1.04) mg/dL Estimated GFR ML/MIN Glucose (74-106) mg/dL Lactic Acid 0.9 (0.4-2.0) Calcium (8.4-10.2) mg/dL Total Bilirubin (0.2-1.3) mg/dL AST (14-36) U/L ALT (0-35) U/L Alkaline Phosphatase (38-126) U/L Serum Total Protein (6.3-8.2) g/dL Albumin (3.5-5.0) g/dL Influenza Type A Ag (NEGATIVE) Influenza Type B Ag (NEGATIVE) RSV (PCR) (Negative) <MELVIN ALBA - Last Filed: 08/12/19 18:56> - Progress Progress: unchanged Air Movement: good Blood Culture(s) Obtained: No Antibiotics given: No Counseled pt/family regarding: lab results, diagnosis, need for follow-up, rad results <TANISHA CLAYTON - Last Filed: 08/12/19 19:50> - Progress Progress Note: 08/12/19 19:47 Chest x-ray shows no acute process. This was compared to chest x-ray dated 2017 (TANISHA CLAYTON) <MELVIN ALBA - Last Filed: 08/12/19 18:56> - Departure Departure Disposition: Home Critical Care Time: No <TANISHA CLAYTON - Last Filed: 08/12/19 19:50> - Departure Clinical Impression: Influenza A Condition: Stable Referrals: ESTEBAN SOLITARIO [Primary Care Provider] - Additional Instructions: Drink plenty of fluids. Follow-up with primary care physician for persistent symptoms. Prescriptions: Hydrocodone Bit/Acetaminophen [Hydrocodone-Acetaminophen Soln] 10 ml PO Q6H # 120 ml Oseltamivir 75 mg [Tamiflu 75MG Capsule] 75 mg PO BID #10 cap Prednisone 10 mg [Deltasone 10 mg] 10 mg PO TID #12 tablet
[2019-08-12 19:12] LABS: Absolute Neutrophil Ct (ANC) 2.39 (1.4-6.9); BASOPHIL % 0.6 % (0.0-0.4); Basophil (Absolute #) 0.02 (0-0.4); Eosinophil % 0.3 % (0.00-5.0); Eosinophil (Absolute #) 0.01 (0-0.5); Hematocrit 39.2 % (35-47); Hemoglobin 13.4 gm/dl (12.0-16.0); Lymphocyte (Absolute #) 0.74 (1.0-4.6); Lymphocytes % 20.6 % (24.0-44.0); Mean Cell Volume 89.3 fl (78-100); Mean Corpuscular Hemoglobin 30.5 pg (26-32); Mean Corpuscular Hgb Concent. 34.2 g/dl (32-36); Mean Platelet Volume 10.9 fl (7.5-11.0); Monocyte (Absolute #) 0.43 (0.0-1.3); Neutrophil % 66.5 % (36.0-66.0); Platelet Count 157 K/mm3 (150-450); Red Blood Count 4.39 M/mm3 (4.1-5.4); Red Cell Distribution Width 13.4 % (11.5-14.0); White Blood Count 3.6 K/mm3 (4.0-10.5)
[2019-08-12 19:23] LABS: ALBUMIN 3.9 g/dL (3.5-5.0); ALKALINE PHOSPHATASE 79 U/L (38-126); ANION GAP 8.8 MEQ/L (5-15); BLOOD UREA NITROGEN 12 mg/dL (7-17); CHLORIDE 107 mmol/L (98-107); Calcium 9.1 mg/dL (8.4-10.2); Carbon Dioxide 26 mmol/L (22-30); Glucose 104 mg/dL (74-106); Potassium 3.5 mmol/L (3.5-5.1); SGOT/AST 20 U/L (14-36); SGPT/ALT 14 U/L (0-35); SODIUM 139 mmol/L (137-145); Total Protein 6.9 g/dL (6.3-8.2)
[2019-08-12 19:42] LABS: INFLUENZA B NEGATIVE (NEGATIVE); RESPIRATORY SYNCTIAL VIRUS NEGATIVE (Negative)
[2019-08-12 19:44] LABS: INFLUENZA A POSITIVE (NEGATIVE)
[2019-08-12] MEDS ORDERED: HYDROCODONE-ACETAMIN 2.5-108/5 ML SOLUTION PO STA (19:51)
[2019-08-12] MEDS ORDERED: Tamiflu 75MG Capsule PO ONE ×2 (19:51→19:57)
[2019-08-12] MEDS ORDERED: HYDROCODONE-ACETAMIN 2.5-108/5 ML SOLUTION ONE (19:57)
[2019-08-12] MEDS ORDERED: DELTASONE 20 MG ONE (19:57)
[2019-08-12 20:18] VITALS: BP 119/84; PULSE 96; O2SAT 98
--- NOTE | 2019-08-13 08:54 | XRAY ---
Indication: Fever and cough. Comparison: August 08, 2017. PA/lateral chest again demonstrates normal heart and lungs with a few incidental calcified granulomas. Bony thorax intact. No new/acute findings.
[2019-08-13] MEDS ORDERED: DELTASONE 20 MG PO ONE (19:51)
== END 2019-08-12 20:16 | disposition home or self-care (01) ==
LOC: ED 18:38
DX: J09.X2 Influenza due to identified novel influenza A virus with other respiratory manifestations (principal)
CPT/HCPCS: 36415; 71046; 80053; 83605; 85025; 87631; 99284; A9270-GY

== ENCOUNTER 2019-12-29 10:09 | Emergency (ER) | payer MEDICARE ==
[2019-12-29] MEDS ORDERED: TYLENOL 325 MG PO ONE (10:29)
[2019-12-29] MEDS ORDERED: Sodium Chloride 0.9% 1000 ML 1,000 ML IV STA (10:29)
[2019-12-29] MEDS ORDERED: TYLENOL 325 MG ONE (10:34)
[2019-12-29] MEDS ORDERED: Sodium Chloride 0.9% 1000 ML 1,000 ML ONE (10:34)
--- NOTE | 2019-12-29 10:34 | ERPHSYRPT ---
- History of Present Illness Time Seen by Provider: 12/29/19 10:32 Source: patient Exam Limitations: no limitations Patient Subjective Stated Complaint: here for cough, fever,chills,aches for 2 day Triage Nursing Assessment: pt walked in with mask in place, undressed, skin w/d/p, resp easy, moves all ext well, Physician History: here for cough, fever,chills,aches for 2 day, nonproductive cough, no shortness of breath, no loss of smell Timing/Duration: day(s) (two) Cough Quality/Degree: dry cough Possible Cause: no prior episodes Associated Symptoms: fever, chills, cough, No shortness of breath, No sore throat Allergies/Adverse Reactions: warfarin sodium [From Coumadin] Adverse Reaction (Severe, Verified 12/29/19 10:15) Platelet count drop significantly Home Medications: Cyclobenzaprine HCl [Flexeril] 10 mg PO HSPRN PRN 01/09/13 [History] Pramipexole Di-HCl [Mirapex] 1.5 mg PO HS 01/09/13 [History] Fluoxetine HCl [Prozac] 20 mg PO HS 09/05/14 [History] Lisinopril 10 mg [Zestril 10 MG] 10 mg PO DAILY 04/01/15 [History] Loratadine [Claritin] 10 mg PO DAILY 04/01/15 [History] Milnacipran HCl [Savella] 50 mg PO BID 04/01/15 [History] Pregabalin [Lyrica 75 mg Cap] 75 cap PO BID 04/01/15 [History] Ropinirole HCl [Requip] 1 mg PO HSPRN PRN 04/01/15 [History] Temazepam 15 mg [Restoril 15 MG] 15 mg PO HS 01/01/16 [History] Hx Tetanus, Diphtheria Vaccination/Date Given: Yes Hx Influenza Vaccination/Date Given: Yes Hx Pneumococcal Vaccination/Date Given: No Immunizations Up to Date: Yes Travel Risk - International Travel Have you traveled outside of the country in past 3 weeks: No - Coronavirus Screening Are you exhibiting any of the following symptoms?: Yes Symptoms: Fever, Cough: New Onset, Headaches/Body Aches/Fatigue Close contact with a COVID-19 positive Pt in past 14-21 Days: No - Review of Systems Constitutional: Fever, Chills, Malaise Eyes: No Symptoms Ears, Nose, & Throat: No Symptoms Respiratory: Cough, No Dyspnea Cardiac: No Chest Pain, No Edema, No Syncope Abdominal/Gastrointestinal: No Abdominal Pain, No Nausea, No Vomiting, No Diarrhea Genitourinary Symptoms: No Dysuria Musculoskeletal: No Back Pain, No Neck Pain Skin: No Rash Neurological: No Dizziness, No Focal Weakness, No Sensory Changes Psychological: No Symptoms Endocrine: No Symptoms All Other Systems: Reviewed and Negative - Past Medical History Pertinent Past Medical History: Yes Neurological History: Migraines ENT History: No Pertinent History Cardiac History: Deep Vein Thrombosis, Hypertension Respiratory History: Pulmonary Embolism Endocrine Medical History: No Pertinent History Musculoskeletal History: Arthritis, Fibromyalgia GI Medical History: Crohns Disease History: No Pertinent History Psycho-Social History: Anxiety, Depression Female Reproductive Disorders: No Pertinent History Other Medical History: restless leg syndrome.DVT hx - Past Surgical History Past Surgical History: Yes Neuro Surgical History: No Pertinent History Cardiac: No Pertinent History Respiratory: No Pertinent History Gastrointestinal: Hernia Repair Genitourinary: No Pertinent History Musculoskeletal: No Pertinent History, Other Female Surgical History: Hysterectomy, Tubal Ligation Other Surgical History: groshong placement/removed, port placement/removed, left hand surgery, plantar fasciatits repair, heel spur removal - Social History Smoking Status: Current every day smoker How long have you smoked: years Exposure to second hand smoke: Yes Drug Use: none Patient Lives Alone: No - Female History Hx Last Menstrual Period: hyster Hx Now: No - Nursing Vital Signs Nursing Vital Signs: Initial Vital Signs Temperature 100.0 F 12/29/19 10:38 Pulse Rate 90 12/29/19 10:38 Respiratory Rate 18 12/29/19 10:38 Blood Pressure 122/73 12/29/19 10:38 O2 Sat by Pulse Oximetry 94 L 12/29/19 10:38 Pain Scale Pain Intensity 8 - Physical Exam General Appearance: no apparent distress, alert Eye Exam: PERRL/EOMI, eyes nml inspection Ears, Nose, Throat Exam: normal ENT inspection, TMs normal, pharynx normal, moist mucous membranes Neck Exam: normal inspection, non-tender, supple, full range of motion Respiratory Exam: normal breath sounds, lungs clear, No respiratory distress Cardiovascular Exam: regular rate/rhythm, normal heart sounds Gastrointestinal/Abdomen Exam: soft, No tenderness Back Exam: normal inspection, No CVA tenderness, No vertebral tenderness Extremity Exam: normal inspection, normal range of motion Neurologic Exam: alert, oriented x 3, cooperative, normal mood/affect, sensation nml, No motor deficits Skin Exam: normal color, warm, dry, No rash Lymphatic Exam: No adenopathy - Radiology Exams Chest X-ray Interpretation: Reviewed by me (right lower lobe infiltrate) Ordered Tests: Active Orders 24 hr Category Date Time Status EKG-ER Only STAT Care 12/29/19 10:40 Active Oxygen-ED Only Nasal Cannula 2 lpm Care 12/29/19 10:29 Active CHEST 1 VIEW (PORTABLE) Stat Exams 12/29/19 10:30 Taken ABG [ARTERIAL BLOOD GASES] Stat Lab 12/29/19 11:08 Completed CBC W DIFF Stat Lab 12/29/19 10:30 Completed CMP Stat Lab 12/29/19 10:30 Completed CULTURE,URINE Stat Lab 12/29/19 10:30 Received UA W/RFX UR CULTURE Stat Lab 12/29/19 10:30 Completed Medication Summary Generic Name Dose Route Start Last Admin Trade Name Freq PRN Reason Stop Dose Admin Sodium Chloride 1,000 mls @ 999 mls/hr 12/29/19 10:29 12/29/19 10:35 Sodium Chloride 0.9% 1000 Ml IV 12/29/19 11:29 999 mls/hr .Q1H1M STA Administration Ceftriaxone Sodium/Dextrose 1 g in 50 mls @ 100 mls/hr 12/29/19 11:25 Rocephin 1 Gm-D5w 50 Ml Bag IV 12/29/19 11:54 STAT STA Discontinued Medications Generic Name Dose Route Start Last Admin Trade Name Freq PRN Reason Stop Dose Admin Acetaminophen 650 mg 12/29/19 10:29 12/29/19 10:34 Tylenol 325 Mg PO 12/29/19 10:30 650 mg STAT ONE Administration Acetaminophen Confirm 12/29/19 10:34 Tylenol 325 Mg Administered 12/29/19 10:35 Dose 650 mg .ROUTE .STK-MED ONE Sodium Chloride Confirm 12/29/19 10:34 Sodium Chloride 0.9% 1000 Ml Administered 12/29/19 10:35 Dose 1,000 mls @ ud .ROUTE .STK-MED ONE Lab/Rad Data: Laboratory Result Diagrams 12/29/19 10:30 12/29/19 10:30 Laboratory Results 12/29/19 12/29/19 12/29/19 Range/Units 11:08 10:30 10:30 WBC (4.0-10.5) K/mm3 RBC (4.1-5.4) M/mm3 Hgb (12.0-16.0) gm/dl Hct (35-47) % MCV (78-100) fl MCH (26-32) pg MCHC (32-36) g/dl RDW (11.5-14.0) % Plt Count (150-450) K/mm3 MPV (7.5-11.0) fl Gran % (36.0-66.0) % Eos # (Auto) (0-0.5) Absolute Lymphs (auto) (1.0-4.6) Absolute Monos (auto) (0.0-1.3) Lymphocytes % (24.0-44.0) % Monocytes % (0.0-12.0) % Eosinophils % (0.00-5.0) % Basophils % (0.0-0.4) % Absolute Granulocytes (1.4-6.9) Basophils # (0-0.4) Puncture Site RIGHT RADIAL pCO2 30 L (35-45) mmHg pO2 103 H (75-100) mmHg Base Excess -0.9 (-2.0-2.0) O2 Saturation 94.9 (94-100) g/dF ABG pH 7.47 H (7.35-7.45) ABG HCO3 21.8 L (22-28) ABG O2 Sat (Measured) 98.6 (95-100) % Ap Test YES A-a Gradient 9 a/A Ratio 0.92 Hemoglobin 11.4 Carboxyhemoglobin 2.6 (0.0-6.9) % THgb Methemoglobin 1.1 L (1.4-1.5) % Temperature 37.0 C POC O2 Flow Rate 21 % Sodium 137 (137-145) mmol/L Potassium 3.7 4.0 (3.5-5.1) mmol/L Chloride 106 (98-107) mmol/L Carbon Dioxide 21 L (22-30) mmol/L Anion Gap 13.8 (5-15) MEQ/L BUN 12 (7-17) mg/dL Creatinine 0.87 (0.52-1.04) mg/dL Estimated GFR > 60.0 ML/MIN Glucose 116 H (74-106) mg/dL Calcium 8.7 (8.4-10.2) mg/dL Total Bilirubin 0.60 (0.2-1.3) mg/dL AST 23 (14-36) U/L ALT 14 (0-35) U/L Alkaline Phosphatase 93 (38-126) U/L Serum Total Protein 6.8 (6.3-8.2) g/dL Albumin 3.8 (3.5-5.0) g/dL Urine Color GENESIS (YELLOW) Urine Appearance CLOUDY (CLEAR) Urine pH 5.0 (5-6) Ur Specific [place] 1.019 (1.005-1.025) Urine Protein 100 (Negative) Urine Ketones NEGATIVE (NEGATIVE) Urine Blood LARGE (0-5) Dwayne/ul Urine Nitrite NEGATIVE (NEGATIVE) Urine Bilirubin NEGATIVE (NEGATIVE) Urine Urobilinogen NEGATIVE (0-1) mg/dL Ur Leukocyte Esterase MODERATE (NEGATIVE) Urine WBC (Auto) >100 (0-5) /HPF Urine RBC (Auto) >101 (0-2) /HPF U Epithel Cells (Auto) RARE (FEW) /HPF Urine Bacteria (Auto) MODERATE (NEGATIVE) /HPF Urine Mucus (Auto) SLIGHT (NEGATIVE) /HPF Urine Culture Reflexed YES (NO) Urine Glucose NEGATIVE (NEGATIVE) mg/dL 25/20 Range/Units 10:30 WBC 11.8 H (4.0-10.5) K/mm3 RBC 3.89 L (4.1-5.4) M/mm3 Hgb 12.0 (12.0-16.0) gm/dl Hct 35.6 (35-47) % MCV 91.5 (78-100) fl MCH 30.8 (26-32) pg MCHC 33.7 (32-36) g/dl RDW 13.2 (11.5-14.0) % Plt Count 186 (150-450) K/mm3 MPV 11.4 H (7.5-11.0) fl Gran % 85.0 H (36.0-66.0) % Eos # (Auto) 0.09 (0-0.5) Absolute Lymphs (auto) 0.85 L (1.0-4.6) Absolute Monos (auto) 0.80 (0.0-1.3) Lymphocytes % 7.2 L (24.0-44.0) % Monocytes % 6.8 (0.0-12.0) % Eosinophils % 0.8 (0.00-5.0) % Basophils % 0.2 (0.0-0.4) % Absolute Granulocytes 10.02 H (1.4-6.9) Basophils # 0.02 (0-0.4) Puncture Site pCO2 (35-45) mmHg pO2 (75-100) mmHg Base Excess (-2.0-2.0) O2 Saturation (94-100) g/dF ABG pH (7.35-7.45) ABG HCO3 (22-28) ABG O2 Sat (Measured) (95-100) % Ap Test A-a Gradient a/A Ratio Hemoglobin Carboxyhemoglobin (0.0-6.9) % THgb Methemoglobin (1.4-1.5) % Temperature C POC O2 Flow Rate % Sodium (137-145) mmol/L Potassium (3.5-5.1) mmol/L Chloride (98-107) mmol/L Carbon Dioxide (22-30) mmol/L Anion Gap (5-15) MEQ/L BUN (7-17) mg/dL Creatinine (0.52-1.04) mg/dL Estimated GFR ML/MIN Glucose (74-106) mg/dL Calcium (8.4-10.2) mg/dL Total Bilirubin (0.2-1.3) mg/dL AST (14-36) U/L ALT (0-35) U/L Alkaline Phosphatase (38-126) U/L Serum Total Protein (6.3-8.2) g/dL Albumin (3.5-5.0) g/dL Urine Color (YELLOW) Urine Appearance (CLEAR) Urine pH (5-6) Ur Specific [place] (1.005-1.025) Urine Protein (Negative) Urine Ketones (NEGATIVE) Urine Blood (0-5) Dwayne/ul Urine Nitrite (NEGATIVE) Urine Bilirubin (NEGATIVE) Urine Urobilinogen (0-1) mg/dL Ur Leukocyte Esterase (NEGATIVE) Urine WBC (Auto) (0-5) /HPF Urine RBC (Auto) (0-2) /HPF U Epithel Cells (Auto) (FEW) /HPF Urine Bacteria (Auto) (NEGATIVE) /HPF Urine Mucus (Auto) (NEGATIVE) /HPF Urine Culture Reflexed (NO) Urine Glucose (NEGATIVE) mg/dL - Progress Progress: improved Air Movement: good Blood Culture(s) Obtained: No Antibiotics given: Yes Counseled pt/family regarding: lab results, diagnosis, need for follow-up, rad results - Departure Departure Disposition: Home Clinical Impression: Bronchitis Urinary tract infection Qualifiers: Urinary tract infection type: acute pyelonephritis Qualified Code(s): N10 - Acute pyelonephritis Condition: Stable Critical Care Time: Yes Critical Care Time(excluding separately billable procedures): Critical 30-74 mi ns Referrals: ESTEBAN SOLITARIO [Primary Care Provider] - Instructions: Urinary Tract Infection, Adult (DC), Acute Bronchitis, Coronavirus Disease 2019 (COVID-19) (DC) Additional Instructions: Discharge/Care Plan ABHIJIT MURRELL RADHA was seen on 12/29/19 in the Emergency Room. The patient was counseled regarding Diagnosis,Lab results, Imaging studies, need for follow up and when to return to the Emergency Room. Prescriptions given: Discharge Note I have spoken with the patient and/or caregivers. I have explained the patient's condition, diagnosis and treatment plan based on the information available to me at this time. I have answered the patient's and/or caregiver's questions and addressed any concerns. The patient and/or caregivers have as good understanding of the patient's diagnosis, condition and treatment plan as can be expected at this point. The vital signs have been stable. The patient's condition is stable and appropriate for discharge from the emergency department. The patient will pursue further outpatient evaluation with the primary care physician or other designated or consulting physician as outlined in the discharge instructions. The patient and/or caregivers are agreeable to this plan of care and follow-up instructions have been explained in detail. The patient a nd/or caregivers have received these instruction. The patient/and or caregivers are aware that any significant change in condition or worsening of symptoms should prompt an immediate return to this or the closest emergency department or call 911. ABHIJIT MURRELL was seen on 12/29/19 n the Emergency Room. At that time you were treated for an emergent condition, during your visit Laboratory, Radiology and/or other procedures may have been ordered. It is very important that you follow-up with your Primary Care Physician ESTEBAN SOLITARIO within the next 24-48 hours to review your Emergency Room visit and the final results of testing that was ordered. Some test results such as Urine Cultures, Blood Cultures, and other cultures if ordered will not be finalized for 24-48 hours. If you do not have a Primary Care Provider please call the medical records department at [phone] ext [phone] to obtain a copy of your results or you may sign into our patient portal to obtain these results by visiting us @ [email or web address] and completing the following steps: 1. Click on the Patient Portal link 2. Click the Patient Self Enrollment Link to complete the enrollment form and entering your 3. Once the enrollment form is completed you will receive an email with a temporary ID and password at the email address you provided. 4. Next choose a user name and password. Your user name must be at least 4 characters long and your password must be at least 4 characters long. 5. Choose a security question from the list and provide your answer to the question. If you already have signed into the Health Portal you may access your Health Care Information 27/12 by the following steps: 1. Login to our website @ [email or web address] 2. Enter your original user name and password. FAQS The [facility] Health Portal is an online tool that contains your Lab Results, Radiology Reports, Visit History, Discharge Instructions and Health Summary Lab and Radiology Results will not be available for 72 hours on the portal. The Portal is a secure site, passwords are encryted and URLs are re-written so they cannot be copied and pasted. You and authorized family members are the only ones who can access your Portal. Also there is a timeout feature that protects your information if you leave the Portal page open. If you have technical difficulty please use the Contact Us link on the page this will allow you to submit any questions you have regarding the Portal or you may contact the Medical Record Department at [phone] ext [phone]. Prescriptions: Levofloxacin [Levaquin 500 MG Tablet] 500 mg PO QAM #7 tablet
[2019-12-29 10:39] VITALS: BP 122/73; PULSE 90; O2SAT 94
[2019-12-29 10:50] LABS: Absolute Neutrophil Ct (ANC) 10.02 (1.4-6.9); BASOPHIL % 0.2 % (0.0-0.4); Basophil (Absolute #) 0.02 (0-0.4); Eosinophil % 0.8 % (0.00-5.0); Eosinophil (Absolute #) 0.09 (0-0.5); Hematocrit 35.6 % (35-47); Lymphocyte (Absolute #) 0.85 (1.0-4.6); Lymphocytes % 7.2 % (24.0-44.0); Mean Cell Volume 91.5 fl (78-100); Mean Corpuscular Hemoglobin 30.8 pg (26-32); Mean Corpuscular Hgb Concent. 33.7 g/dl (32-36); Mean Platelet Volume 11.4 fl (7.5-11.0); Monocytes % 6.8 % (0.0-12.0); Platelet Count 186 K/mm3 (150-450); Red Blood Count 3.89 M/mm3 (4.1-5.4); Red Cell Distribution Width 13.2 % (11.5-14.0); White Blood Count 11.8 K/mm3 (4.0-10.5)
[2019-12-29 10:55] LABS: Appearance CLOUDY (CLEAR); Bacteria MODERATE /HPF (NEGATIVE); Bilirubin NEGATIVE (NEGATIVE); Blood LARGE Ery/ul (0-5); Epithelial Cells RARE /HPF (FEW); Glucose NEGATIVE (NEGATIVE); Ketones NEGATIVE (NEGATIVE); Leukocyte Esterase MODERATE (NEGATIVE); Mucus SLIGHT /HPF (NEGATIVE); Nitrite NEGATIVE (NEGATIVE); Protein,Urine Dip 100 (Negative); Specific Gravity 1.019 (1.005-1.025); Urobilinogen NEGATIVE mg/dL (0-1); WBC >100 /HPF (0-5)
[2019-12-29 10:59] LABS: ALBUMIN 3.8 g/dL (3.5-5.0); ALKALINE PHOSPHATASE 93 U/L (38-126); ANION GAP 13.8 MEQ/L (5-15); BLOOD UREA NITROGEN 12 mg/dL (7-17); CHLORIDE 106 mmol/L (98-107); Calcium 8.7 mg/dL (8.4-10.2); Carbon Dioxide 21 mmol/L (22-30); Creatinine 1 0.87 mg/dL (0.52-1.04); Glucose 116 mg/dL (74-106); SGOT/AST 23 U/L (14-36); SGPT/ALT 14 U/L (0-35); SODIUM 137 mmol/L (137-145); Total Protein 6.8 g/dL (6.3-8.2)
[2019-12-29 11:00] LABS: RBC >101 /HPF (0-2)
[2019-12-29 11:10] LABS: A-aADO2 9; ABG HEMOGLOBIN 11.4; ABG POTASSIUM 3.7 (3.5-5.1); ABG SITE RIGHT RADIAL; ALLEN TEST OK? YES; ARTERIAL BLD GAS O2 SATURATION 98.6 % (95-100); ARTERIAL BLOOD GAS BASE EXCESS -0.9 (-2.0-2.0); ARTERIAL BLOOD GAS FIO2 21 %; ARTERIAL BLOOD GAS PCO2 30 mmHg (35-45); ARTERIAL BLOOD GAS PO2 103 mmHg (75-100); ARTERIAL BLOOD GAS pH 7.47 (7.35-7.45); CARBOXYHEMOGLOBIN 2.6 % THgb (0.0-6.9); HCO3- 21.8 (22-28); HGB O2 SAT 94.9 g/dF (94-100); Methhemoglobin 1.1 % (1.4-1.5); paO2 pAO1 0.92
[2019-12-29] MEDS ORDERED: ROCEPHIN 1 Gm-D5w 50 ml Bag** 1 G/50 ML IVPB IV STA (11:25)
[2019-12-29] MEDS ORDERED: ROCEPHIN 1 Gm-D5w 50 ml Bag** 1 G/50 ML IVPB IV ONE (11:30)
--- NOTE | 2019-12-29 19:53 | XRAY ---
Indication: Fever, chills, and cough. Comparison: August 12, 2019. Portable chest now demonstrates hazy right infrahilar airspace opacity without consolidation or large effusion. Remaining heart, lungs, and bony thorax normal.
== END 2019-12-29 12:25 | disposition home or self-care (01) ==
LOC: ED 10:09
DX: J40 Bronchitis, not specified as acute or chronic (principal); N10 Acute pyelonephritis; R50.9 Fever, unspecified; R05 Cough; Z79.899 Other long term (current) drug therapy; I10 Essential (primary) hypertension
CPT/HCPCS: 80053; 81001; 82375; 82803; 85025; 87077; 87086; 87186; 93005; 96360; 96365; 99291; U0003; 36415; 36600; 71045; 99284; J0696; A9270-GY

== ENCOUNTER 2020-06-26 07:32 | Day surgery (SDC) | payer MEDICARE ==
--- NOTE | 2020-06-19 09:02 | HP ---
DATE OF SURGERY: 06/26/2020 HISTORY OF PRESENT ILLNESS: The patient is a 50 year-old female who reports abscess on the right upper buttock area. It has been there for some time. It opened and started draining. It is tender and red at this time. PAST MEDICAL HISTORY: Crohn's disease. Hypertension. Fibromyalgia. History of blood clot, deep venous thrombosis and pulmonary embolism. PAST SURGICAL HISTORY: Hand surgery. Hysterectomy. Bilateral foot surgery. Umbilical hernia surgery. ALLERGIES: WARFARIN SODIUM. LATEX. BAND-AID. MEDICATIONS: Lyrica. Savella. Lisinopril. Eliquis. Mirapex. FAMILY HISTORY: Breast cancer. SOCIAL HISTORY: Smokes one pack a day. REVIEW OF SYSTEMS: CONSTITUTIONAL: Denies fever or chills. CHEST: Denies shortness of breath. CVS: Denies chest pain. ABDOMEN: Denies abdominal pain, nausea, vomiting, diarrhea, constipation or rectal bleeding. INTEGUMENTARY: Right upper buttock abscess. PHYSICAL EXAMINATION: GENERAL: No acute distress. CHEST: Nonlabored. No shortness of breath. CVS: Regular rate and rhythm. ABDOMEN: Soft, nontender to palpation. EXTREMITIES: No edema. INTEGUMENTARY: Right upper buttock cyst less than 1 cm. NEUROLOGIC: Alert. PSYCHIATRIC: Appropriate. IMPRESSION: Right upper buttock abscess. PLAN: Excision of right upper buttock abscess with Dr. Atif Mittal. As dictated by Karla Casey NP.
[~2020-06-26 07:32] MED LIST: Lactated Ringers 1,000 ML IV ONE; Sensorcaine 0.25% 10 ML ONE
[2020-06-26] MEDS ORDERED: Lactated Ringers 1,000 ML IV ONE (08:18)
[2020-06-26] MEDS ORDERED: Lactated Ringers 1,000 ML IV SCH (08:30)
[2020-06-26] MEDS ORDERED: DIPRIVAN 200 MG/20 ML IV ONE (08:47)
[2020-06-26] MEDS ORDERED: SUBLIMAZE 100 MCG/2 ML ONE ×2 (08:47→09:45)
[2020-06-26] MEDS ORDERED: Versed 2 MG/2 ML Injection ONE (08:48)
[2020-06-26] MEDS ORDERED: BACIGUENT 30 GM ONE (09:26)
[2020-06-26] MEDS ORDERED: Hydromorphone 1 mg/ml Injection ONE (09:56)
[2020-06-26 13:23] VITALS: O2SAT 96
[2020-06-26 13:24] VITALS: BP 110/69; PULSE 70
--- NOTE | 2020-06-27 08:19 | OP ---
SURGERY DATE/TIME: 06/26/2020 0851 PREOPERATIVE DIAGNOSIS: Inflammatory cystic mass right buttock 2 cm. POSTOPERATIVE DIAGNOSIS: Inflammatory cystic mass right buttock 2 cm. PROCEDURE: A 2 cm inflammatory cystic mass taken through a 4 cm elliptical excision and closure. SURGEON: Atif Mittal M.D. ART DISPLAY MAKER: JACQUIE Manuel student. ANESTHESIA: General. COMPLICATIONS: None. CONDITION: Stable. INDICATION: The patient has inflamed area right buttock. She was placed on antibiotics. There is some residual core. She needs resection of this. DESCRIPTION OF PROCEDURE: She was taken to surgery. Left lateral decubitus position. General anesthetic. Routine prep and drape. 1% lidocaine. Time out performed. Elliptical excision along the skin line. Hemostasis obtained by electrocautery. Approximated with five sutures #3-0 Prolene vertical mattress sutures. Sterile dressing applied. The patient tolerated the procedure satisfactorily.
== END 2020-06-26 11:20 | disposition home or self-care (01) ==
LOC: SDC 07:32
PROVIDERS: ATTEND Surgery
DX: L72.8 Other follicular cysts of the skin and subcutaneous tissue (principal); L02.31 Cutaneous abscess of buttock
CPT/HCPCS: J1170; J2250; J2704; J3010; A9270-GY

== ENCOUNTER 2020-10-14 15:53 | Observation (INO) | payer MEDICARE ==
[2020-10-14] MEDS ORDERED: Zofran 4 MG/2 ML VIAL IV PRN (17:13)
[2020-10-14 17:59] LABS: Absolute Neutrophil Ct (ANC) 6.21 (1.4-6.9); BASOPHIL % 0.4 % (0.0-0.4); Basophil (Absolute #) 0.04 (0-0.4); Eosinophil % 3.6 % (0.00-5.0); Eosinophil (Absolute #) 0.35 (0-0.5); Hematocrit 40.9 % (35-47); Hemoglobin 13.6 gm/dl (12.0-16.0); Lymphocyte (Absolute #) 2.65 (1.0-4.6); Lymphocytes % 27.4 % (24.0-44.0); Mean Cell Volume 90.3 fl (78-100); Mean Corpuscular Hgb Concent. 33.3 g/dl (32-36); Mean Platelet Volume 10.4 fl (7.5-11.0); Monocyte (Absolute #) 0.41 (0.0-1.3); Monocytes % 4.2 % (0.0-12.0); Neutrophil % 64.4 % (36.0-66.0); Platelet Count 275 K/mm3 (150-450); Red Blood Count 4.53 M/mm3 (4.1-5.4); White Blood Count 9.7 K/mm3 (4.0-10.5)
[2020-10-14] MEDS: Lactated Ringers 1,000 ML IV SCH (17:59)
[2020-10-14] MEDS: Hydromorphone 1 mg/ml Injection IV PRN ×2 (17:59→22:36)
[2020-10-14] MEDS: ROCEPHIN 1 Gm-D5w 50 ml Bag** 1 G/50 ML IVPB IV SCH (17:59)
[2020-10-14] MEDS ORDERED: solu-MEDROL 125 MG IV SCH (18:00)
[2020-10-14] MEDS: Zithromax 500 MG/ 250 ML NaCl Premix 500 MG/250 ML IVPB IV SCH (18:00)
[2020-10-14 18:11] LABS: ALBUMIN 4.2 g/dL (3.5-5.0); ALKALINE PHOSPHATASE 97 U/L (38-126); ANION GAP 10.8 MEQ/L (5-15); BLOOD UREA NITROGEN 11 mg/dL (7-17); CHLORIDE 102 mmol/L (98-107); Calcium 9.4 mg/dL (8.4-10.2); Carbon Dioxide 29 mmol/L (22-30); Creatinine 1 0.81 mg/dL (0.52-1.04); EST GLOMERULAR FILTRATION RATE > 60.0 ML/MIN; Glucose 92 mg/dL (74-106); Potassium 3.9 mmol/L (3.5-5.1); SGOT/AST 24 U/L (14-36); SGPT/ALT 18 U/L (0-35); SODIUM 137 mmol/L (137-145); Total Protein 6.9 g/dL (6.3-8.2)
[2020-10-14] MEDS: DUONEB 0.5-3 MG/3 ml Neb IH SCH ×2 (18:22→19:27)
[2020-10-14 19:28] LABS: Appearance CLEAR (CLEAR); Bilirubin NEGATIVE (NEGATIVE); Blood SMALL Ery/ul (0-5); Glucose NEGATIVE (NEGATIVE); Ketones NEGATIVE (NEGATIVE); Leukocyte Esterase NEGATIVE (NEGATIVE); Nitrite NEGATIVE (NEGATIVE); Protein,Urine Dip NEGATIVE (Negative); Specific Gravity 1.008 (1.005-1.025); Urobilinogen NEGATIVE mg/dL (0-1)
[2020-10-14] MEDS ORDERED: Requip 0.5 MG PO PRN (20:19)
[2020-10-14] MEDS ORDERED: Restoril 15 MG PO PRN (20:20)
[2020-10-14] MEDS: Prozac 20 MG PO SCH (21:25)
[2020-10-14] MEDS: Cyclobenzaprine 10 MG PO PRN (21:26)
[2020-10-14] MEDS: Mirapex 0.5 MG Tablet PO SCH (21:26)
[2020-10-14] MEDS: ELIQUIS 2.5 MG TABLET PO SCH (21:27)
[2020-10-14] MEDS: TYLENOL 325 MG PO PRN (21:27)
[2020-10-14] MEDS ORDERED: LYRICA 75 MG CAP PO SCH (22:00)
[2020-10-14] MEDS ORDERED: Inderal 20 MG PO SCH (22:00)
[2020-10-15] MEDS: DUONEB 0.5-3 MG/3 ml Neb IH SCH ×4 (00:31→18:35)
[2020-10-15] MEDS ORDERED: solu-MEDROL 40 MG IV SCH ×4 (02:00→10:00)
[2020-10-15] MEDS: Hydromorphone 1 mg/ml Injection IV PRN ×4 (05:28→18:47)
[2020-10-15] MEDS ORDERED: Requip 0.5 MG PO PRN (07:19)
[2020-10-15] MEDS ORDERED: ESZOPICLONE 3 MG PO PRN (07:21)
[2020-10-15] MEDS ORDERED: MEDICATION INTERVENTION MC SCH ×2 (07:45)
--- NOTE | 2020-10-15 08:33 | PCM.HP.ADD ---
Addendum to History & Physical - History & Physical Addendum Addendum to History & Physical: This certifies that the History & Physical in the electronic chart reflects the current health status of the patient. If there are changes in the H&P these changes/exceptions are listed as follows.
--- NOTE | 2020-10-15 08:35 | PCM.NOTE ---
Date and Time: 10/15/20832 Subjective Assessment: Pt feeling somewhat better. Marylin po. - Review of Systems Constitutional: No Fever Respiratory: Cough, Short Of Breath Objective Exam General Appearance: no apparent distress, alert Neurologic Exam: oriented x 3, cooperative Skin Exam: normal color, warm, dry, No rash Eye Exam: eyes nml inspection Ears, Nose, Throat Exam: moist mucous membranes Neck Exam: normal inspection, non-tender, No lymphadenopathy Respiratory Exam: diminished breath sounds (fair air exchange), wheezing (throughout), No crackles/rales, No rhonchi Cardiovascular Exam: regular rate/rhythm, normal heart sounds, No murmur Extremity Exam: normal inspection, No pedal edema, No swelling OBJECTIVE DATA Vital Signs: Vital Signs - 24 hr Temp Pulse Resp BP Pulse Ox 10/15/20 08:00 98.9 F 65 14 110/53 93 L 10/15/20 07:11 67 19 90 L 10/15/20 04:20 97.6 F 77 19 115/62 94 L 10/15/20 00:34 79 16 92 L 10/15/20 00:00 98.0 F 68 16 101/51 95 10/14/20 20:02 98.4 F 77 18 107/54 95 10/14/20 18:25 85 16 90 L 10/14/20 17:20 83 18 97/56 96 Pain Assessment - Last Documented Pain Intensity 0 Pain Scale Used 0-10 Pain Scale Intake and Output: Intake & Output 10/12/20 10/13/20 10/14/20 10/15/20 11:59 11:59 11:59 11:59 Intake Total 2630 Output Total 500 Balance 2130 Weight 101.3 kg Lab Results: Lab Results-Last 24 Hours 10/14/20 10/14/20 10/14/20 Range/Units 17:50 17:50 19:15 WBC 9.7 (4.0-10.5) K/mm3 RBC 4.53 (4.1-5.4) M/mm3 Hgb 13.6 (12.0-16.0) gm/dl Hct 40.9 (35-47) % MCV 90.3 (78-100) fl MCH 30.0 (26-32) pg MCHC 33.3 (32-36) g/dl RDW 13.0 (11.5-14.0) % Plt Count 275 (150-450) K/mm3 MPV 10.4 (7.5-11.0) fl Gran % 64.4 (36.0-66.0) % Eos # (Auto) 0.35 (0-0.5) Absolute Lymphs (auto) 2.65 (1.0-4.6) Absolute Monos (auto) 0.41 (0.0-1.3) Lymphocytes % 27.4 (24.0-44.0) % Monocytes % 4.2 (0.0-12.0) % Eosinophils % 3.6 (0.00-5.0) % Basophils % 0.4 (0.0-0.4) % Absolute Granulocytes 6.21 (1.4-6.9) Basophils # 0.04 (0-0.4) Sodium 137 (137-145) mmol/L Potassium 3.9 (3.5-5.1) mmol/L Chloride 102 (98-107) mmol/L Carbon Dioxide 29 (22-30) mmol/L Anion Gap 10.8 (5-15) MEQ/L BUN 11 (7-17) mg/dL Creatinine 0.81 (0.52-1.04) mg/dL Estimated GFR > 60.0 ML/MIN Glucose 92 (74-106) mg/dL Calcium 9.4 (8.4-10.2) mg/dL Total Bilirubin 0.40 (0.2-1.3) mg/dL AST 24 (14-36) U/L ALT 18 (0-35) U/L Alkaline Phosphatase 97 (38-126) U/L Serum Total Protein 6.9 (6.3-8.2) g/dL Albumin 4.2 (3.5-5.0) g/dL Urine Color YELLOW (YELLOW) Urine Appearance CLEAR (CLEAR) Urine pH 6.0 (5-6) Ur Specific [place] 1.008 (1.005-1.025) Urine Protein NEGATIVE (Negative) Urine Ketones NEGATIVE (NEGATIVE) Urine Blood SMALL (0-5) Dwayne/ul Urine Nitrite NEGATIVE (NEGATIVE) Urine Bilirubin NEGATIVE (NEGATIVE) Urine Urobilinogen NEGATIVE (0-1) mg/dL Ur Leukocyte Esterase NEGATIVE (NEGATIVE) Urine WBC (Auto) 3-5 (0-5) /HPF Urine RBC (Auto) NONE (0-2) /HPF U Epithel Cells (Auto) NONE (FEW) /HPF Urine Bacteria (Auto) NONE (NEGATIVE) /HPF Urine Culture Reflexed NO (NO) Urine Glucose NEGATIVE (NEGATIVE) mg/dL Radiology Exams: Radiology Procedures Category Date Time Status CHEST 2 VIEWS (PA AND LAT) Stat Exams 10/14/20 19:34 Taken Assessment/Plan (1) Asthma exacerbation Current Visit: Yes Status: Acute Qualifiers: Asthma severity: moderate Asthma persistence: persistent Qualified Code(s): J45.41 - Moderate persistent asthma with (acute) exacerbation Assessment & Plan: Persistent wheezing despite steroids and duonebs; will increase steroid dose. Treating with abx for possible atypical pna. Code(s): J45.901 - UNSPECIFIED ASTHMA WITH (ACUTE) EXACERBATION (2) Cough Current Visit: Yes Status: Acute Code(s): R05 - COUGH (3) Atypical pneumonia Current Visit: Yes Status: Suspected Code(s): J18.9 - PNEUMONIA, UNSPECIFIED ORGANISM
[2020-10-15] MEDS: LYRICA 150MG PO SCH ×2 (09:40→21:16)
[2020-10-15] MEDS: CLARITIN 10 MG PO SCH (09:41)
[2020-10-15] MEDS: ELIQUIS 2.5 MG TABLET PO SCH ×2 (09:41→21:16)
[2020-10-15] MEDS: Zestril 5 MG PO SCH (09:42)
[2020-10-15] MEDS ORDERED: Zestril 10 MG PO SCH (10:00)
[2020-10-15] MEDS ORDERED: MILNACIPRAN HCL 50 MG PO SCH (10:00)
[2020-10-15] MEDS ORDERED: NON-FORMULARY ITEM (Loratadine [Claritin] 10 MG) PO SCH (10:00)
--- NOTE | 2020-10-15 10:07 | XRAY ---
Exam: Two-view chest from 10/14/2020. Comparison: AP upright portable chest film from 10/17/2020. Indication: 50-year-old female with cough, intermittent fever, smoker. Findings: Upright PA and lateral chest films are submitted for evaluation. The heart size and contour are normal. A round soft tissue density consistent with the patient's nipples is seen at each lung base. The alfredo and mediastinal structures appear unremarkable. Numerous EKG leads overlie the chest. There is a suggestion of a 1 or 2 small calcified granulomas within the right midlung zone. No air space infiltrates, vascular congestion, pneumothorax, or pleural fluid is seen. Slight convexity of the mid thoracic spine toward the right is seen. Some vertebral endplate spurring consistent with degenerative spondylosis is noted within the thoracic spine. Impression: 1. No air space infiltrates to suggest focal pneumonia or other acute cardiopulmonary disease is seen. This appears similar to 10/07/2020.
[2020-10-15] MEDS: Lactated Ringers 1,000 ML IV SCH (10:34)
[2020-10-15] MEDS: solu-MEDROL 125 MG IV SCH ×2 (13:49→18:38)
[2020-10-15] MEDS: ROCEPHIN 1 Gm-D5w 50 ml Bag** 1 G/50 ML IVPB IV SCH (17:24)
[2020-10-15] MEDS: Zithromax 500 MG/ 250 ML NaCl Premix 500 MG/250 ML IVPB IV SCH (18:38)
[2020-10-15] MEDS: Prozac 20 MG PO SCH (21:15)
[2020-10-15] MEDS: Mirapex 0.5 MG Tablet PO SCH (21:15)
[2020-10-15] MEDS: NON-FORMULARY ITEM PO SCH (21:15)
[2020-10-15] MEDS ORDERED: PROPRANOLOL HCL 120 MG PO SCH (22:00)
[2020-10-16] MEDS: solu-MEDROL 125 MG IV SCH ×5 (00:03→23:48)
[2020-10-16] MEDS: Hydromorphone 1 mg/ml Injection IV PRN ×6 (00:04→21:58)
[2020-10-16] MEDS: DUONEB 0.5-3 MG/3 ml Neb IH SCH ×4 (00:46→19:06)
[2020-10-16] MEDS: Lactated Ringers 1,000 ML IV SCH ×2 (03:45→22:05)
--- NOTE | 2020-10-16 09:07 | PCM.NOTE ---
Date and Time: 10/16/20 0904 Subjective Assessment: patient remains short of breath and wheezing, tolerating po intake Objective Exam General Appearance: no apparent distress, alert Respiratory Exam: rhonchi, wheezing Cardiovascular Exam: regular rate/rhythm, normal heart sounds Gastrointestinal/Abdomen Exam: soft, No tenderness, No mass Extremity Exam: normal inspection, normal range of motion OBJECTIVE DATA Vital Signs: Vital Signs - 24 hr Temp Pulse Resp BP BP Pulse Ox 10/16/20 07:19 98 F 82 16 115/56 94 L 10/16/20 07:11 94 H 16 94 L 10/16/20 04:00 97.7 F 77 21 122/66 95 10/16/20 00:48 91 H 20 92 L 10/15/20 23:43 98.4 F 90 20 117/60 94 L 10/15/20 20:00 98.0 F 93 H 18 119/60 95 10/15/20 18:38 92 H 18 94 L 10/15/20 16:00 98.6 F 98 H 17 119/56 91 L 10/15/20 13:27 71 20 98 10/15/20 12:00 99.2 F 79 18 110/53 94 L Pain Assessment - Last Documented Pain Intensity 8 Pain Scale Used 0-10 Pain Scale Intake and Output: Intake & Output 10/13/20 10/14/20 10/15/20 10/16/20 11:59 11:59 11:59 11:59 Intake Total 3110 2511 Output Total 900 1000 Balance 2210 1511 Weight 101.3 kg Radiology Exams: Radiology Procedures Category Date Time Status CHEST 2 VIEWS (PA AND LAT) Stat Exams 10/14/20 19:34 Completed Assessment/Plan (1) Asthma exacerbation Current Visit: Yes Status: Acute Qualifiers: Asthma severity: moderate Asthma persistence: persistent Qualified Code(s): J45.41 - Moderate persistent asthma with (acute) exacerbation Assessment & Plan: continue solu medrol and nebs, still has significant bronchospasm and wheezing, also receiving rocephin. pt on eliquis Code(s): J45.901 - UNSPECIFIED ASTHMA WITH (ACUTE) EXACERBATION (2) Failure of outpatient treatment Current Visit: Yes Status: Acute Code(s): Z78.9 - OTHER SPECIFIED HEALTH STATUS
[2020-10-16] MEDS: LYRICA 150MG PO SCH ×2 (09:41→21:57)
[2020-10-16] MEDS: CLARITIN 10 MG PO SCH (09:41)
[2020-10-16] MEDS: Zestril 5 MG PO SCH (09:41)
[2020-10-16] MEDS: ELIQUIS 2.5 MG TABLET PO SCH ×2 (09:41→21:57)
[2020-10-16] MEDS: TYLENOL 325 MG PO PRN ×2 (09:44→17:05)
[2020-10-16] MEDS: ROCEPHIN 1 Gm-D5w 50 ml Bag** 1 G/50 ML IVPB IV SCH (17:49)
[2020-10-16] MEDS: Zithromax 500 MG/ 250 ML NaCl Premix 500 MG/250 ML IVPB IV SCH (18:55)
[2020-10-16] MEDS: Mirapex 0.5 MG Tablet PO SCH (21:57)
[2020-10-16] MEDS: Prozac 20 MG PO SCH (21:57)
[2020-10-16] MEDS: NON-FORMULARY ITEM PO SCH (21:57)
[2020-10-17] MEDS: DUONEB 0.5-3 MG/3 ml Neb IH SCH ×4 (01:00→19:23)
[2020-10-17] MEDS: Hydromorphone 1 mg/ml Injection IV PRN ×2 (02:20→06:17)
[2020-10-17 04:48] LABS: Hematocrit 36.4 % (35-47); Hemoglobin 11.6 gm/dl (12.0-16.0); Mean Cell Volume 93.8 fl (78-100); Mean Corpuscular Hemoglobin 29.9 pg (26-32); Mean Corpuscular Hgb Concent. 31.9 g/dl (32-36); Mean Platelet Volume 10.8 fl (7.5-11.0); Platelet Count 218 K/mm3 (150-450); Red Blood Count 3.88 M/mm3 (4.1-5.4); Red Cell Distribution Width 13.4 % (11.5-14.0); White Blood Count 16.2 K/mm3 (4.0-10.5)
[2020-10-17 05:22] LABS: ANION GAP 10.1 MEQ/L (5-15); BLOOD UREA NITROGEN 17 mg/dL (7-17); CHLORIDE 105 mmol/L (98-107); Calcium 9.1 mg/dL (8.4-10.2); Carbon Dioxide 27 mmol/L (22-30); EST GLOMERULAR FILTRATION RATE > 60.0 ML/MIN; Glucose 125 mg/dL (74-106); Potassium 4.2 mmol/L (3.5-5.1); SODIUM 138 mmol/L (137-145)
[2020-10-17 05:47] LABS: Lymphocytes 5 % (24-44); Monocyte 1 % (0.0-12.0); Neutrophils 94 % (36.0-66.0); Platelet Estimate NORMAL (NORMAL); Total Cells Counted 100
[2020-10-17] MEDS: solu-MEDROL 125 MG IV SCH ×3 (06:14→23:26)
--- NOTE | 2020-10-17 08:47 | PCM.NOTE ---
Date and Time: 10/17/20 0844 Subjective Assessment: Feeling better, but still with SOB on exertion. Marylin po. - Review of Systems Constitutional: No Fever Respiratory: Cough, Short Of Breath Objective Exam General Appearance: no apparent distress, alert Neurologic Exam: oriented x 3, cooperative Skin Exam: normal color, warm, dry, No rash Respiratory Exam: lungs clear, diminished breath sounds, wheezing (decreased wheezes from yesterday), No crackles/rales, No rhonchi Cardiovascular Exam: regular rate/rhythm, normal heart sounds, No murmur OBJECTIVE DATA Vital Signs: Vital Signs - 24 hr Temp Pulse Resp BP Pulse Ox 10/17/20 07:40 98.3 F 72 18 156/73 97 10/17/20 07:06 70 16 96 10/17/20 04:00 98.0 F 67 21 139/67 96 10/17/20 01:02 68 18 93 L 10/16/20 23:44 98.2 F 76 18 145/68 94 L 10/16/20 20:00 98.2 F 76 18 119/72 94 L 10/16/20 19:09 83 18 94 L 10/16/20 16:00 98.7 F 82 18 124/60 95 10/16/20 12:53 79 20 96 10/16/20 12:00 98.2 F 85 20 119/56 94 L Pain Assessment - Last Documented Pain Intensity 0 Pain Scale Used 0-10 Pain Scale Intake and Output: Intake & Output 10/14/20 10/15/20 10/16/20 10/17/20 11:59 11:59 11:59 11:59 Intake Total 3110 2811 4052 Output Total 900 1650 2050 Balance 2210 1161 2001 Weight 101.3 kg 101.3 kg Lab Results: Lab Results-Last 24 Hours 10/17/20 10/17/20 Range/Units 04:13 04:13 WBC 16.2 H (4.0-10.5) K/mm3 RBC 3.88 L (4.1-5.4) M/mm3 Hgb 11.6 L (12.0-16.0) gm/dl Hct 36.4 (35-47) % MCV 93.8 (78-100) fl MCH 29.9 (26-32) pg MCHC 31.9 L (32-36) g/dl RDW 13.4 (11.5-14.0) % Plt Count 218 (150-450) K/mm3 MPV 10.8 (7.5-11.0) fl Segmented Neutrophils 94 H (36.0-66.0) % Lymphocytes (Manual) 5 L (24-44) % Monocytes (Manual) 1 (0.0-12.0) % Platelet Estimate NORMAL (NORMAL) RBC Morphology NORMAL Sodium 138 (137-145) mmol/L Potassium 4.2 (3.5-5.1) mmol/L Chloride 105 (98-107) mmol/L Carbon Dioxide 27 (22-30) mmol/L Anion Gap 10.1 (5-15) MEQ/L BUN 17 (7-17) mg/dL Creatinine 0.60 (0.52-1.04) mg/dL Estimated GFR > 60.0 ML/MIN Glucose 125 H (74-106) mg/dL Calcium 9.1 (8.4-10.2) mg/dL Multi-Disciplinary Progress Notes: Multi-Disciplinary Progress Notes 10/16/20 11:04 Case Management Note by Cely Dooley PATIENT STILL ACUTELY ILL, WILL CONTINUE TO FOLLOW Initialized on 10/16/20 11:04 - END OF NOTE Assessment/Plan (1) Asthma exacerbation Current Visit: Yes Status: Acute Qualifiers: Asthma severity: moderate Asthma persistence: persistent Qualified Code(s): J45.41 - Moderate persistent asthma with (acute) exacerbation Assessment & Plan: will start decreasing her steroid IV. up out of bed. Code(s): J45.901 - UNSPECIFIED ASTHMA WITH (ACUTE) EXACERBATION (2) Cough Current Visit: Yes Status: Acute Code(s): R05 - COUGH (3) Atypical pneumonia Current Visit: Yes Status: Suspected Code(s): J18.9 - PNEUMONIA, UNSPECIFIED ORGANISM
[2020-10-17] MEDS: CLARITIN 10 MG PO SCH (09:24)
[2020-10-17] MEDS: LYRICA 150MG PO SCH ×2 (09:24→21:03)
[2020-10-17] MEDS: Zestril 5 MG PO SCH (09:24)
[2020-10-17] MEDS: ELIQUIS 2.5 MG TABLET PO SCH ×2 (09:25→21:04)
[2020-10-17] MEDS: TYLENOL 325 MG PO PRN (12:29)
[2020-10-17] MEDS: Lactated Ringers 1,000 ML IV SCH (13:35)
[2020-10-17] MEDS: HYDROCODONE-ACETAMIN 10-325 MG PO PRN ×2 (13:40→21:04)
[2020-10-17] MEDS: ROCEPHIN 1 Gm-D5w 50 ml Bag** 1 G/50 ML IVPB IV SCH (18:12)
[2020-10-17] MEDS: Prozac 20 MG PO SCH (21:00)
[2020-10-17] MEDS: Mirapex 0.5 MG Tablet PO SCH (21:03)
[2020-10-17] MEDS: Cyclobenzaprine 10 MG PO PRN (21:03)
[2020-10-17] MEDS: NON-FORMULARY ITEM PO SCH (21:21)
[2020-10-18] MEDS: DUONEB 0.5-3 MG/3 ml Neb IH SCH ×2 (00:34→07:13)
[2020-10-18] MEDS: HYDROCODONE-ACETAMIN 10-325 MG PO PRN (01:06)
[2020-10-18] MEDS: Lactated Ringers 1,000 ML IV SCH ×2 (05:31→05:32)
[2020-10-18] MEDS: solu-MEDROL 125 MG IV SCH (05:33)
[2020-10-18 08:03] VITALS: BP 157/78; PULSE 65; O2SAT 98
--- NOTE | 2020-10-18 09:47 | PCM.DS ---
Discharge Summary Date of Admission: 10/14/20 15:53 Admitting Physician: ESTEBAN BOWMAN Primary Care Provider: ESTEBAN BOWMAN Allergies Allergies warfarin sodium [From Coumadin] Adverse Reaction (Severe, Verified 06/26/20 07:57) Platelet count drop significantly. pt had excessive bleeding Hospital Summary - Hospital Course Hospital Course: patient was admitted with asthma exacerbation, has been on rocephin, nebs and IV solu medrol. no oxygen requirement, tolerating po and overall feeling better. would like to go home - Vitals & Intake/Output Vital Signs: Vital Signs Temperature 97.9 F 10/18/20 04:00 Pulse Rate 65 10/18/20 08:00 Respiratory Rate 24 10/18/20 08:00 Blood Pressure 157/78 10/18/20 08:00 O2 Sat by Pulse Oximetry 98 10/18/20 08:00 Intake & Output: Intake & Output 10/15/20 10/16/20 10/17/20 10/18/20 11:59 11:59 11:59 11:59 Intake Total 3110 2811 4052 2881 Output Total 900 1650 2050 1600 Balance 2210 1161 2002 1281 Weight 101.3 kg 101.3 kg - Lab Result Diagrams: 10/17/20 04:13 10/17/20 04:13 - Procedures and Test Procedures and Tests throughout Hospitalization: Therapy Orders & Screens 10/14/20 18:28 Respiratory Therapy Assessment DAILY Comment: Diagnosis: exac asthma Discharge Exam General Appearance: no apparent distress, alert Respiratory Exam: lungs clear, wheezing (minimal end exp wheeze present), No accessory muscle use Cardiovascular Exam: regular rate/rhythm, normal heart sounds Gastrointestinal/Abdomen Exam: soft, No tenderness, No mass Extremity Exam: normal inspection, normal range of motion Skin Exam: normal color, warm, dry Final Diagnosis/Problem List - Final Discharge Diagnosis/Problem (1) Asthma exacerbation Current Visit: Yes Status: Acute Code(s): J45.901 - UNSPECIFIED ASTHMA WITH (ACUTE) EXACERBATION (2) Failure of outpatient treatment Current Visit: Yes Status: Acute Code(s): Z78.9 - OTHER SPECIFIED HEALTH STATUS - Discharge Disposition: Home, Self-Care Condition: Stable Prescriptions: New Prednisone 20 mg [Deltasone 20 mg] 20 mg PO UD #18 tablet Albuterol 2.5 mg/3 ml Neb [Proventil 2.5 mg/3 ml Neb] 2.5 mg IH Q4HPRN PRN #100 neb PRN Reason: Shortness Of Breath Continue Cyclobenzaprine HCl [Flexeril] 10 mg PO HSPRN PRN PRN Reason: Pain Pramipexole Di-HCl [Mirapex] 1.5 mg PO HS Fluoxetine HCl [Prozac] 40 mg PO HS Loratadine [Claritin] 10 mg PO DAILY Ropinirole HCl [Requip] 1 mg PO HSPRN PRN PRN Reason: Pain Milnacipran HCl [Savella] 50 mg PO BID Pregabalin [Lyrica 75 mg Cap] 150 cap PO BID Lisinopril 10 mg [Zestril 10 MG] 5 mg PO DAILY Temazepam 15 mg [Restoril 15 MG] 15 mg PO HS PRN PRN Reason: Insomnia Propranolol HCl [Inderal Xl] 120 mg PO HS Ondansetron [Ondansetron Odt] 8 mg PO HS Apixaban [Eliquis] 5 mg PO BID #0 tablet Eszopiclone 3 mg PO HS PRN PRN Reason: Anxiety Additional Instructions: take meds as directed, return for worsening condition, shortness of breath or confusion or other complaints. Follow up with: ESTEBAN BOWMAN [Primary Care Provider] - 1 Week
[2020-10-18] MEDS: Zestril 5 MG PO SCH (09:53)
[2020-10-18] MEDS: CLARITIN 10 MG PO SCH (09:53)
[2020-10-18] MEDS: ELIQUIS 2.5 MG TABLET PO SCH (09:54)
[2020-10-18] MEDS: LYRICA 150MG PO SCH (09:54)
== END 2020-10-18 10:31 | disposition home or self-care (01) ==
LOC: INTOOBSV 15:53 → MED SURG 15:53
PROVIDERS: ADMIT Family Medicine; ATTEND Family Medicine
DX: J45.901 Unspecified asthma with (acute) exacerbation (principal); J18.9 Pneumonia, unspecified organism; R05 Cough; R53.83 Other fatigue; R31.0 Gross hematuria; Z78.9 Other specified health status; Z79.899 Other long term (current) drug therapy; Z20.828 Contact with and (suspected) exposure to other viral communicable diseases
CPT/HCPCS: 0241U; 36415; 71046; 80048; 80053; 81001; 85025; 87045; 87046; 93268; 94640; 94760; 94762; G0378; J0456; J0696; J1170; J2920; J2930; A9270-GY

== ENCOUNTER 2021-08-24 01:47 | Emergency (ER) | payer MEDICARE ==
[2021-08-24] MEDS ORDERED: Sodium Chloride 0.9% 1000 ML 1,000 ML IV STA (02:19)
[2021-08-24] MEDS ORDERED: Zofran 4 MG/2 ML VIAL IV ONE (02:19)
--- NOTE | 2021-08-24 02:19 | ERPHSYRPT ---
- History of Present Illness Time Seen by Provider: 08/24/21 02:10 Historian: patient, family Patient Subjective Stated Complaint: Patient c/o having diarrhea for the past 24 hours. Patient thinks there may be blood in her stool. States she doesn't know if she has had a fever or not, she hasn't checked. Denies vomiting but does have some nausea. C/O some abdominal pain with palpation; pain isolated to left upper quad. Triage Nursing Assessment: Patient ambulated back to ED without difficulties. She is alert and oriented and answering questions appropriately. Bowel sounds present in all 4 abd quads. Physician History: This is a 51-year-old white female patient of Dr. Robby Alejandro who has a history of Crohn's disease and has had a 24-hour history of diarrhea. Patient does not know she has had a fever. She has not checked. She had nausea but no vomiting. She denies shortness of breath. She denies chest pain. Patient has a history of osteoarthritis, fibromyalgia, migraine headaches and anxiety issues. He is also having a headache at this time. Patient is not on any anti- Crohn's medication and it has been a while since she is seen a machine maintenance technician. Timing/Duration: yesterday Activities at Onset: none Quality: cramping Abdominal Pain Onset Location: generalized abdomen Severity of Pain-Max: moderate Severity of Pain-Current: mild Associated Symptoms: diarrhea, nausea, weakness, No chest pain, No fever/chills, No shortness of breath Allergies/Adverse Reactions: warfarin sodium [From Coumadin] Adverse Reaction (Severe, Verified 08/24/21 01:54) Platelet count drop significantly. pt had excessive bleeding Home Medications: Cyclobenzaprine HCl [Flexeril] 10 mg PO HSPRN PRN 01/09/13 [History] Pramipexole Di-HCl [Mirapex] 1.5 mg PO HS 01/09/13 [History] Lisinopril 10 mg [Zestril 10 MG] 5 mg PO DAILY 04/01/15 [History] Ropinirole HCl [Requip] 1 mg PO HSPRN PRN 04/01/15 [History] Temazepam 15 mg [Restoril 15 MG] 15 mg PO HS PRN 01/01/16 [History] Ondansetron [Ondansetron Odt] 8 mg PO HS 06/18/20 [History] Propranolol HCl [Inderal Xl] 120 mg PO HS 06/18/20 [History] Eszopiclone 3 mg PO HS PRN 10/14/20 [History] Fluticasone Propionate [Flonase NASAL] 1 spray .ROUTE HS 08/24/21 [History] Naproxen 1 tab PO DAILY PRN 08/24/21 [History] Hx Tetanus, Diphtheria Vaccination/Date Given: Yes Hx Influenza Vaccination/Date Given: No Hx Pneumococcal Vaccination/Date Given: No Immunizations Up to Date: Yes Travel Risk - International Travel Have you traveled outside of the country in past 3 weeks: No - Coronavirus Screening Are you exhibiting any of the following symptoms?: Yes Symptoms: Vomiting/Diarrhea Close contact with a COVID-19 positive Pt in past 14-21 Days: No - Vaccine Status Have you recieved a Covid-19 vaccination: No - Review of Systems Constitutional: Weakness Eyes: No Symptoms Ears, Nose, & Throat: No Symptoms Respiratory: No Symptoms Cardiac: No Symptoms Abdominal/Gastrointestinal: Abdominal Pain, Nausea, Diarrhea Genitourinary Symptoms: No Symptoms Musculoskeletal: No Symptoms Skin: No Symptoms Neurological: No Symptoms Psychological: No Symptoms Endocrine: No Symptoms Hematologic/Lymphatic: No Symptoms Immunological/Allergic: No Symptoms All Other Systems: Reviewed and Negative - Past Medical History Pertinent Past Medical History: Yes Neurological History: Migraines, Peripheral Neuropathy ENT History: Other Cardiac History: No Pertinent History Respiratory History: No Pertinent History Endocrine Medical History: No Pertinent History Musculoskeletal History: Fibromyalgia, Osteoarthritis GI Medical History: Crohns Disease, Hemorrhoids History: No Pertinent History Psycho-Social History: Anxiety, Depression Female Reproductive Disorders: No Pertinent History Other Medical History: Heel spurs, TMJ - Past Surgical History Past Surgical History: Yes Neuro Surgical History: No Pertinent History Cardiac: No Pertinent History Respiratory: No Pertinent History Gastrointestinal: Hernia Repair Genitourinary: No Pertinent History Musculoskeletal: No Pertinent History, Other Female Surgical History: Hysterectomy, Tubal Ligation Other Surgical History: groshong placement/removed, port placement/removed, left hand surgery, plantar fasciatits repair, heel spur removal - Social History Smoking Status: Current every day smoker How long have you smoked: "A LOT" Exposure to second hand smoke: No Drug Use: none Patient Lives Alone: No - Nursing Vital Signs Nursing Vital Signs: Initial Vital Signs Temperature 98 F 08/24/21 01:56 Pulse Rate 85 08/24/21 01:56 Respiratory Rate 18 08/24/21 01:56 Blood Pressure 126/67 08/24/21 01:56 O2 Sat by Pulse Oximetry 99 08/24/21 01:56 Pain Scale Pain Intensity 0 - Physical Exam General Appearance: no apparent distress, alert, anxiety, obese Eye Exam: PERRL/EOMI, eyes nml inspection Ears, Nose, Throat Exam: normal ENT inspection, moist mucous membranes Neck Exam: normal inspection, non-tender, supple, full range of motion Respiratory Exam: normal breath sounds, lungs clear, airway intact, No chest tenderness, No respiratory distress Cardiovascular Exam: regular rate/rhythm, normal heart sounds, normal peripheral pulses Gastrointestinal/Abdomen Exam: soft, normal bowel sounds, tenderness (Mild, diffuse), guarding, No rebound Pelvic Exam: not done Rectal Exam: not done Back Exam: normal inspection, normal range of motion, No CVA tenderness, No vertebral tenderness Extremity Exam: normal inspection, normal range of motion, pelvis stable Neurologic Exam: alert, oriented x 3, cooperative, colorectal surgeon II-XII nml as tested, normal mood/affect, nml cerebellar function, nml station & gait, sensation nml Skin Exam: normal color, warm, dry Lymphatic Exam: No adenopathy SpO2 Interpretation: normal SpO2: 99 O2 Delivery: Room Air - Course Nursing assessment & vital signs reviewed: Yes Ordered Tests: Active Orders 24 hr Category Date Time Status IV Insertion STAT Care 08/24/21 02:19 Active ABDOMEN AND PELVIS W/0 CONTRAS [CT] Stat Exams 08/24/21 02:20 Taken AMYLASE Stat Lab 08/24/21 02:30 Completed BLOOD CULTURE Stat Lab 08/24/21 03:05 Received CBC W DIFF Stat Lab 08/24/21 02:30 Completed CMP Stat Lab 08/24/21 02:30 Completed INFLUENZA A+B WIL Stat Lab 08/24/21 03:06 Completed LIPASE Stat Lab 08/24/21 02:30 Completed Lactic Acid Stat Lab 08/24/21 02:19 Completed [place] Screen Stat Lab 08/24/21 02:43 Completed Medication Summary Discontinued Medications Generic Name Dose Route Start Last Admin Trade Name Freq PRN Reason Stop Dose Admin Sodium Chloride 1,000 mls @ 999 mls/hr 08/24/21 02:19 08/24/21 04:13 Sodium Chloride 0.9% 1000 Ml IV 08/24/21 03:19 Infused .Q1H1M STA Infusion Sodium Chloride Confirm 08/24/21 03:00 Sodium Chloride 0.9% 1000 Ml Administered 08/24/21 03:01 Dose 1,000 mls @ ud .ROUTE .STK-MED ONE Ceftriaxone Sodium/Dextrose 1 g in 50 mls @ 100 mls/hr 08/24/21 04:49 08/24/21 05:28 Rocephin 1 Gm-D5w 50 Ml Bag IV 08/24/21 05:18 Infused STAT STA Infusion Sodium Chloride 500 mls @ 500 mls/hr 08/24/21 04:49 08/24/21 05:54 Sodium Chloride 0.9% 500 Ml IV 08/24/21 05:48 Infused .Q1H ONE Infusion Ceftriaxone Sodium/Dextrose Confirm 08/24/21 04:51 Rocephin 1 Gm-D5w 50 Ml Bag Administered 08/24/21 04:52 Dose 1 g in 50 mls @ ud IV .STK-MED ONE Sodium Chloride Confirm 08/24/21 04:51 Sodium Chloride 0.9% 500 Ml Administered 08/24/21 04:52 Dose 500 mls @ ud IV .STK-MED ONE Morphine Sulfate 4 mg 08/24/21 02:30 08/24/21 03:03 Morphine Sulfate 4 Mg/Ml Injection IV 08/24/21 02:31 4 mg STAT ONE Administration Morphine Sulfate Confirm 08/24/21 03:00 Morphine Sulfate 4 Mg/Ml Injection Administered 08/24/21 03:01 Dose 4 mg .ROUTE .STK-MED ONE Ondansetron HCl 4 mg 08/24/21 02:19 08/24/21 03:01 Ondansetron Hcl 4 Mg/2 Ml Vial IV 08/24/21 02:20 4 mg STAT ONE Administration Ondansetron HCl Confirm 08/24/21 03:00 Ondansetron Hcl 4 Mg/2 Ml Vial Administered 08/24/21 03:01 Dose 4 mg .ROUTE .STK-MED ONE Lab/Rad Data: Laboratory Result Diagrams 08/24/21 02:30 08/24/21 02:30 Laboratory Results 08/24/21 08/24/2122 Range/Units 04:19 03:06 02:43 WBC (4.0-10.5) K/mm3 RBC (4.1-5.4) M/mm3 Hgb (12.0-16.0) gm/dl Hct (35-47) % MCV (78-100) fl MCH (26-32) pg MCHC (32-36) g/dl RDW (11.5-14.0) % Plt Count (150-450) K/mm3 MPV (7.5-11.0) fl Gran % (36.0-66.0) % Eos # (Auto) (0-0.5) Absolute Lymphs (auto) (1.0-4.6) Absolute Monos (auto) (0.0-1.3) Lymphocytes % (24.0-44.0) % Monocytes % (0.0-12.0) % Eosinophils % (0.00-5.0) % Basophils % (0.0-0.4) % Absolute Granulocytes (1.4-6.9) Basophils # (0-0.4) Sodium (137-145) mmol/L Potassium (3.5-5.1) mmol/L Chloride (98-107) mmol/L Carbon Dioxide (22-30) mmol/L Anion Gap (5-15) MEQ/L BUN (7-17) mg/dL Creatinine (0.52-1.04) mg/dL Estimated GFR ML/MIN Glucose (74-106) mg/dL Lactic Acid (0.4-2.0) Calcium (8.4-10.2) mg/dL Total Bilirubin (0.2-1.3) mg/dL AST (14-36) U/L ALT (0-35) U/L Alkaline Phosphatase (38-126) U/L Serum Total Protein (6.3-8.2) g/dL Albumin (3.5-5.0) g/dL Amylase (30-110) U/L Lipase (23-300) U/L Urinalys Dipstick Clnc MAIN LAB Urine Color YELLOW (YELLOW) Urine Appearance CLEAR (CLEAR) Urine pH 6.0 (5-6) Ur Specific [place] 1.020 (1.005-1.025) POC Urine Protein Conf NEGATIVE (Negative) Urine Ketones NEGATIVE (NEGATIVE) Urine Nitrite NEGATIVE (NEGATIVE) Urine Bilirubin NEGATIVE (NEGATIVE) Urine Urobilinogen 0.2 (0-1) mg/dL Urine Leukocytes NEGATIVE (NEGATIVE) Urine WBC (Auto) 6-10 (0-5) /HPF Urine RBC (Auto) 3-5 (0-2) /HPF U Epithel Cells (Auto) RARE (FEW) /HPF Urine Bacteria (Auto) NONE SEEN (NEGATIVE) /HPF Urine RBC TRACE-INTACT (0-5) Dwayne/ul Urine Mucus (Auto) SLIGHT (NEGATIVE) /HPF Ur Culture Indicated? NO Urine Glucose NEGATIVE (NEGATIVE) mg/dL Monoscreen NEGATIVE (Negative) Influenza Type A Ag NEGATIVE (NEGATIVE) Influenza Type B Ag NEGATIVE (NEGATIVE) 08/24/21 08/24/21 08/24/21 Range/Units 02:30 02:30 02:19 WBC 8.8 (4.0-10.5) K/mm3 RBC 4.44 (4.1-5.4) M/mm3 Hgb 13.4 (12.0-16.0) gm/dl Hct 39.7 (35-47) % MCV 89.4 (78-100) fl MCH 30.2 (26-32) pg MCHC 33.8 (32-36) g/dl RDW 13.4 (11.5-14.0) % Plt Count 221 (150-450) K/mm3 MPV 11.0 (7.5-11.0) fl Gran % 72.6 H (36.0-66.0) % Eos # (Auto) 0.24 (0-0.5) Absolute Lymphs (auto) 1.67 (1.0-4.6) Absolute Monos (auto) 0.47 (0.0-1.3) Lymphocytes % 19.0 L (24.0-44.0) % Monocytes % 5.4 (0.0-12.0) % Eosinophils % 2.7 (0.00-5.0) % Basophils % 0.3 (0.0-0.4) % Absolute Granulocytes 6.36 (1.4-6.9) Basophils # 0.03 (0-0.4) Sodium 137 (137-145) mmol/L Potassium 3.7 (3.5-5.1) mmol/L Chloride 107 (98-107) mmol/L Carbon Dioxide 24 (22-30) mmol/L Anion Gap 9.8 (5-15) MEQ/L BUN 15 (7-17) mg/dL Creatinine 0.94 (0.52-1.04) mg/dL Estimated GFR > 60.0 ML/MIN Glucose 109 H (74-106) mg/dL Lactic Acid 1.0 (0.4-2.0) Calcium 8.8 (8.4-10.2) mg/dL Total Bilirubin 0.40 (0.2-1.3) mg/dL AST 25 (14-36) U/L ALT 20 (0-35) U/L Alkaline Phosphatase 85 (38-126) U/L Serum Total Protein 5.9 L (6.3-8.2) g/dL Albumin 3.6 (3.5-5.0) g/dL Amylase 38 (30-110) U/L Lipase 41 (23-300) U/L Urinalys Dipstick Clnc Urine Color (YELLOW) Urine Appearance (CLEAR) Urine pH (5-6) Ur Specific [place] (1.005-1.025) POC Urine Protein Conf (Negative) Urine Ketones (NEGATIVE) Urine Nitrite (NEGATIVE) Urine Bilirubin (NEGATIVE) Urine Urobilinogen (0-1) mg/dL Urine Leukocytes (NEGATIVE) Urine WBC (Auto) (0-5) /HPF Urine RBC (Auto) (0-2) /HPF U Epithel Cells (Auto) (FEW) /HPF Urine Bacteria (Auto) (NEGATIVE) /HPF Urine RBC (0-5) Dwayne/ul Urine Mucus (Auto) (NEGATIVE) /HPF Ur Culture Indicated? Urine Glucose (NEGATIVE) mg/dL Monoscreen (Negative) Influenza Type A Ag (NEGATIVE) Influenza Type B Ag (NEGATIVE) - Progress Progress: improved Progress Note: 08/24/21 06:25 CAT scan of the abdomen pelvis without contrast shows no acute intra-abdominal or intrapelvic findings. Counseled pt/family regarding: lab results, diagnosis, need for follow-up, rad results - Departure Departure Disposition: Home Clinical Impression: Abdominal pain, Diarrhea Condition: Stable Critical Care Time: No Referrals: ESTEBAN DOZIER [Primary Care Provider] - Follow up/PCP as directed Additional Instructions: Drink plenty fluids prior to advancing diet. Take your medication as prescribed. Follow-up with your your machine maintenance technician for further management. Prescriptions: Ondansetron ODT 4 MG [Zofran Odt 4 mg] 4 mg PO Q6H PRN PRN #10 tablet PRN Reason: Vomiting Ciprofloxacin [Cipro 500 MG] 500 mg PO BID #14 tablet Metronidazole 500 mg [Flagyl 500 MG] 500 mg PO TID #21 tablet
[2021-08-24] MEDS ORDERED: MORPHINE SULFATE 4 MG INJ IV ONE (02:30)
[2021-08-24 02:48] LABS: Absolute Neutrophil Ct (ANC) 6.36 (1.4-6.9); Basophil (Absolute #) 0.03 (0-0.4); Eosinophil % 2.7 % (0.00-5.0); Eosinophil (Absolute #) 0.24 (0-0.5); Hematocrit 39.7 % (35-47); Hemoglobin 13.4 gm/dl (12.0-16.0); Lymphocyte (Absolute #) 1.67 (1.0-4.6); Mean Cell Volume 89.4 fl (78-100); Mean Corpuscular Hemoglobin 30.2 pg (26-32); Mean Corpuscular Hgb Concent. 33.8 g/dl (32-36); Monocyte (Absolute #) 0.47 (0.0-1.3); Monocytes % 5.4 % (0.0-12.0); Neutrophil % 72.6 % (36.0-66.0); Platelet Count 221 K/mm3 (150-450); Red Blood Count 4.44 M/mm3 (4.1-5.4); Red Cell Distribution Width 13.4 % (11.5-14.0); White Blood Count 8.8 K/mm3 (4.0-10.5)
[2021-08-24 02:59] LABS: ALBUMIN 3.6 g/dL (3.5-5.0); ALKALINE PHOSPHATASE 85 U/L (38-126); AMYLASE 38 U/L (30-110); ANION GAP 9.8 MEQ/L (5-15); BLOOD UREA NITROGEN 15 mg/dL (7-17); CHLORIDE 107 mmol/L (98-107); Calcium 8.8 mg/dL (8.4-10.2); Carbon Dioxide 24 mmol/L (22-30); Creatinine 1 0.94 mg/dL (0.52-1.04); EST GLOMERULAR FILTRATION RATE > 60.0 ML/MIN; Glucose 109 mg/dL (74-106); LIPASE 41 U/L (23-300); Potassium 3.7 mmol/L (3.5-5.1); SGOT/AST 25 U/L (14-36); SGPT/ALT 20 U/L (0-35); SODIUM 137 mmol/L (137-145); Total Protein 5.9 g/dL (6.3-8.2)
[2021-08-24] MEDS ORDERED: MORPHINE SULFATE 4 MG INJ ONE (03:00)
[2021-08-24] MEDS ORDERED: Sodium Chloride 0.9% 1000 ML 1,000 ML ONE (03:00)
[2021-08-24] MEDS ORDERED: Zofran 4 MG/2 ML VIAL ONE (03:00)
[2021-08-24 03:34] LABS: INFLUENZA A NEGATIVE (NEGATIVE); INFLUENZA B NEGATIVE (NEGATIVE)
[2021-08-24 04:27] LABS: Appearance CLEAR (CLEAR); Bilirubin NEGATIVE (NEGATIVE); Epithelial Cells RARE /HPF (FEW); Glucose NEGATIVE (NEGATIVE); Ketones NEGATIVE (NEGATIVE); Mucus SLIGHT /HPF (NEGATIVE)
[2021-08-24 04:28] LABS: Bacteria NONE SEEN /HPF (NEGATIVE); Nitrite NEGATIVE (NEGATIVE); Protein,Urine Dip NEGATIVE (Negative); RBC TRACE-INTACT Ery/ul (0-5); Urobilinogen 0.2 mg/dL (0-1)
[2021-08-24 04:29] LABS: Dipstick done @ ? MAIN LAB
[2021-08-24] MEDS ORDERED: Sodium Chloride 0.9% 500 ML 500 ML IV ONE ×2 (04:49→04:51)
[2021-08-24] MEDS ORDERED: ROCEPHIN 1 Gm-D5w 50 ml Bag** 1 G/50 ML IVPB IV STA (04:49)
[2021-08-24] MEDS ORDERED: ROCEPHIN 1 Gm-D5w 50 ml Bag** 1 G/50 ML IVPB IV ONE (04:51)
[2021-08-24 06:07] VITALS: BP 102/60; PULSE 64
[2021-08-24 06:27] VITALS: O2SAT 99
--- NOTE | 2021-08-24 09:06 | XRAY ---
Indication: Abdomen pain and diarrhea. Multiple contiguous axial images obtained through the abdomen and pelvis without contrast. Comparison: October 16, 2015 Lung bases remain clear. Heart not enlarged. Noncontrasted stomach and bowel loops appear nonobstructed. New 1.6 cm descending duodenal diverticulum. Normal air-filled appendix. Again previous hysterectomy. Stable tiny right lobe peripheral hepatic cyst. No free fluid/air. Remaining liver, gallbladder, pancreas, spleen, adrenal glands, kidneys, ureters, and bladder are unremarkable for noncontrast exam. Again minimal distal aortic calcifications without AAA. Osseous structures intact with progressive worsening L4-S1 degenerative changes. Impression: 1. New duodenal diverticulum and worsening lower lumbar degenerative disc disease. 2. Stable hepatic cyst. 3. Remaining CT abdomen/pelvis without contrast exam is negative. Comment: Preliminary interpretation by [facility]. No critical discrepancy.
== END 2021-08-24 06:45 | disposition home or self-care (01) ==
LOC: ED 01:47
DX: R19.7 Diarrhea, unspecified (principal); R10.84 Generalized abdominal pain; K50.90 Crohn's disease, unspecified, without complications; R11.0 Nausea; R51.9 Headache, unspecified; Z72.0 Tobacco use; Z79.899 Other long term (current) drug therapy
CPT/HCPCS: 36000; 36415; 74176; 80053; 81015; 82150; 83605; 83690; 85025; 86308; 87040; 87400; 96360; 96361; 96374; 99284; J0696; J2270; J2405

== ENCOUNTER 2021-08-26 09:49 | Emergency (ER) | payer MEDICARE ==
--- NOTE | 2021-08-26 10:38 | ERPHSYRPT ---
- History of Present Illness Time Seen by Provider: 08/26/21 10:00 Source: patient Exam Limitations: no limitations Patient Subjective Stated Complaint: pt here for left leg pain from hip to foot. was seen in er on tuesday for loose stools which she states is better. Triage Nursing Assessment: pt alert, face mask in place, resp easy, skin w/d/p, no edema noted, no redness Physician History: Patient is a 51-year-old female with a history of DVT on Eliquis presents to our ED for evaluation of pain to her left leg from her calf just above her medial thigh. Patient concerned she may have another DVT. No trauma. No fever. No chest pain or shortness of breath. No nausea vomiting or diaphoresis. Patient states that she had a DVT in the past in spite of being on Eliquis. Patient has not missed any doses of Eliquis per patient. No associated trauma or fever. Patient voices no other complaints concerns at this time. Timing/Duration: today Severity: moderate Modifying Factors: Improves With: nothing Associated Symptoms: denies symptoms Allergies/Adverse Reactions: warfarin sodium [From Coumadin] Adverse Reaction (Severe, Verified 08/26/21 09:59) Platelet count drop significantly. pt had excessive bleeding Home Medications: Cyclobenzaprine HCl [Flexeril] 10 mg PO HSPRN PRN 01/09/13 [History] Pramipexole Di-HCl [Mirapex] 1.5 mg PO HS 01/09/13 [History] Lisinopril 10 mg [Zestril 10 MG] 5 mg PO DAILY 04/01/15 [History] Ropinirole HCl [Requip] 1 mg PO HSPRN PRN 04/01/15 [History] Temazepam 15 mg [Restoril 15 MG] 15 mg PO HS PRN 01/01/16 [History] Ondansetron [Ondansetron Odt] 8 mg PO HS 06/18/20 [History] Propranolol HCl [Inderal Xl] 120 mg PO HS 06/18/20 [History] Eszopiclone 3 mg PO HS PRN 10/14/20 [History] Fluticasone Propionate [Flonase NASAL] 1 spray .ROUTE HS 08/24/21 [History] Naproxen 1 tab PO DAILY PRN 08/24/21 [History] Hx Tetanus, Diphtheria Vaccination/Date Given: Yes Hx Influenza Vaccination/Date Given: No Hx Pneumococcal Vaccination/Date Given: No Immunizations Up to Date: Yes Travel Risk - International Travel Have you traveled outside of the country in past 3 weeks: No - Coronavirus Screening Are you exhibiting any of the following symptoms?: No Close contact with a COVID-19 positive Pt in past 14-21 Days: No - Vaccine Status Have you recieved a Covid-19 vaccination: No - Review of Systems Constitutional: No Symptoms, No Fever, No Chills Eyes: No Symptoms Ears, Nose, & Throat: No Symptoms Respiratory: No Symptoms, No Cough, No Dyspnea Cardiac: No Symptoms, No Chest Pain, No Edema, No Syncope Abdominal/Gastrointestinal: No Symptoms, No Abdominal Pain, No Nausea, No Vomiting, No Diarrhea Genitourinary Symptoms: No Symptoms, No Dysuria Musculoskeletal: No Symptoms, No Back Pain, No Neck Pain Skin: No Symptoms, No Rash Neurological: No Symptoms, No Dizziness, No Focal Weakness, No Sensory Changes Psychological: No Symptoms Endocrine: No Symptoms Hematologic/Lymphatic: No Symptoms Immunological/Allergic: No Symptoms All Other Systems: Reviewed and Negative - Past Medical History Pertinent Past Medical History: Yes Neurological History: Migraines, Peripheral Neuropathy ENT History: Other Cardiac History: No Pertinent History Respiratory History: No Pertinent History Endocrine Medical History: No Pertinent History Musculoskeletal History: Fibromyalgia, Osteoarthritis GI Medical History: Crohns Disease, Hemorrhoids History: No Pertinent History Psycho-Social History: Anxiety, Depression Female Reproductive Disorders: No Pertinent History Other Medical History: Heel spurs, TMJ - Past Surgical History Past Surgical History: Yes Neuro Surgical History: No Pertinent History Cardiac: No Pertinent History Respiratory: No Pertinent History Gastrointestinal: Hernia Repair Genitourinary: No Pertinent History Musculoskeletal: No Pertinent History, Other Female Surgical History: Hysterectomy, Tubal Ligation Other Surgical History: groshong placement/removed, port placement/removed, left hand surgery, plantar fasciatits repair, heel spur removal - Social History Smoking Status: Current every day smoker How long have you smoked: "A LOT" Exposure to second hand smoke: No Drug Use: none Patient Lives Alone: No - Nursing Vital Signs Nursing Vital Signs: Initial Vital Signs Temperature 98.0 F 08/26/21 10:01 Pulse Rate 86 08/26/21 10:01 Respiratory Rate 18 08/26/21 10:01 Blood Pressure 147/74 08/26/21 10:01 O2 Sat by Pulse Oximetry 100 08/26/21 10:01 Pain Scale Pain Intensity 8 - Physical Exam General Appearance: no apparent distress, alert Eye Exam: PERRL/EOMI, eyes nml inspection Ears, Nose, Throat Exam: normal ENT inspection, TMs normal, pharynx normal, moist mucous membranes Neck Exam: normal inspection, non-tender, supple, full range of motion Respiratory Exam: normal breath sounds, lungs clear, airway intact, No respiratory distress Cardiovascular Exam: regular rate/rhythm, normal heart sounds, normal peripheral pulses Gastrointestinal/Abdomen Exam: soft, normal bowel sounds, other (No pulsatile abdominal masses.), No tenderness, No mass Back Exam: normal inspection, normal range of motion, No CVA tenderness, No vertebral tenderness Extremity Exam: normal inspection, normal range of motion, pelvis stable, karmen's sign (Positive Homans' sign. Extremity neurovascular intact distally. Compartments are soft. Cap refill less than 2 seconds. No edema. 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 Patient resting comfortably. Ultrasound negative for DVT. Patient has no other complaints. Extremity neurovascular intact distally. Compartments are soft. Cap refill less than 2 seconds. No indication for further work-up at this time. Will discharge home. Patient agrees to follow-up with primary care doctor within 48 hours for evaluation. Portions of this note were created with voice recognition technology. There may be grammatical, spelling, punctuation or sound alike errors 08/26/21 10:48 Counseled pt/family regarding: diagnosis, need for follow-up, rad results - Departure Departure Disposition: Home Clinical Impression: Leg pain Condition: Stable Critical Care Time: No Referrals: ESTEBAN DOZIER [Primary Care Provider] - Follow up/PCP as directed Additional Instructions: Discharge/Care Plan BREANINGABHIJIT Alcaraz was seen on 08/26/21 in the Emergency Room. The patient was counseled regarding Diagnosis,Lab results, Imaging studies, need for follow up and when to return to the Emergency Room. Prescriptions given: Discharge Note I have spoken with the patient and/or caregivers. I have explained the patient's condition, diagnosis and treatment plan based on the information available to me at this time. I have answered the patient's and/or caregiver's questions and addressed any concerns. The patient and/or caregivers have as good understanding of the patient's diagnosis, condition and treatment plan as can be expected at this point. The vital signs have been stable. The patient's condition is stable and appropriate for discharge from the emergency department. The patient will pursue further outpatient evaluation with the primary care physician or other designated or consulting physician as outlined in the discharge instructions. The patient and/or caregivers are agreeable to this plan of care and follow-up instructions have been explained in detail. The patient and/or caregivers have received these instruction. The patient/and or caregivers are aware that any significant change in condition or worsening of symptoms should prompt an immediate return to this or the closest emergency department or call 911.
[2021-08-26] MEDS ORDERED: TYLENOL 325 MG PO ONE (11:00)
[2021-08-26] MEDS ORDERED: TYLENOL 325 MG ONE (11:03)
--- NOTE | 2021-08-26 11:05 | XRAY ---
Indication: Pain. Two-dimensional sonogram and color Doppler imaging of the major venous vessels of the left leg performed. Comparison: None No thrombus seen in the examined deep venous vessels of the left leg including greater saphenous vein. Veins demonstrate normal compressibility. Venous waveforms are normal with and without augmentation. Impression: Left leg negative for DVT.
[2021-08-26 11:09] VITALS: BP 125/78; PULSE 78; O2SAT 98
== END 2021-08-26 11:10 | disposition home or self-care (01) ==
LOC: ED 09:49
DX: M79.605 Pain in left leg (principal); Z86.718 Personal history of other venous thrombosis and embolism; Z79.01 Long term (current) use of anticoagulants; G62.9 Polyneuropathy, unspecified; Z72.0 Tobacco use
CPT/HCPCS: 93971; 99283; A9270-GY

== ENCOUNTER 2022-05-03 13:15 | Emergency (ER) | payer MEDICARE ==
[2022-05-03] MEDS ORDERED: TORAdol 30 mg Injection IM ONE (14:32)
[2022-05-03] MEDS ORDERED: TORAdol 30 mg Injection ONE (14:50)
[2022-05-03 15:36] LABS: INFLUENZA A NEGATIVE (NEGATIVE); INFLUENZA B NEGATIVE (NEGATIVE); RESPIRATORY SYNCTIAL VIRUS NEGATIVE (Negative)
[2022-05-03 15:54] LABS: SARS-CoV-2 Xpert Express POSITIVE (NEGATIVE)
[2022-05-03 16:12] VITALS: BP 117/62; PULSE 68
[2022-05-03 16:14] VITALS: O2SAT 100
--- NOTE | 2022-05-03 16:14 | ERPHSYRPT ---
- History of Present Illness Time Seen by Provider: 05/03/22 14:20 Source: patient Exam Limitations: no limitations Patient Subjective Stated Complaint: Pt c/o of all over body aches and a sore throat since last night, son diagnosed Tuesday with mono Triage Nursing Assessment: Pt brought self to the ER, vitals wnl, generalized pain rated 6/10, sore throat, took aleve approx 1200. pulses normal, skin n/w/d, doesn't appear to be in any distress Physician History: Patient is a 52-year-old female presents to our ED with body aches and a sore throat. Patient concerned that she may have mono. Patient states her son has bilateral and she has been exposed. Her symptoms have been ongoing for 1 day. Body aches rated 6 out of 10. No other complaints. No chest pain or shortness of breath. No nausea vomiting or diaphoresis. Symptoms are mild to moderate in intensity. No specific worsening improving factors. Patient is otherwise healthy. She voices no other complaints or concerns at this time. Patient has no urinary complaints Timing/Duration: yesterday Severity: moderate Modifying Factors: Improves With: nothing Associated Symptoms: denies symptoms Allergies/Adverse Reactions: warfarin sodium [From Coumadin] Adverse Reaction (Severe, Verified 05/03/22 14:12) Platelet count drop significantly. pt had excessive bleeding Home Medications: Cyclobenzaprine HCl [Flexeril] 10 mg PO HSPRN PRN 01/09/13 [History] Pramipexole Di-HCl [Mirapex] 1.5 mg PO HS 01/09/13 [History] Lisinopril 10 mg [Zestril 10 MG] 5 mg PO DAILY 04/01/15 [History] Ropinirole HCl [Requip] 1 mg PO HSPRN PRN 04/01/15 [History] Ondansetron [Ondansetron Odt] 8 mg PO HS 06/18/20 [History] Propranolol HCl [Inderal Xl] 120 mg PO HS 06/18/20 [History] Fluticasone Propionate [Flonase NASAL] 1 spray .ROUTE HS 08/24/21 [History] Naproxen 1 tab PO DAILY PRN 08/24/21 [History] Eszopiclone [Lunesta] 3 mg PO HS 05/03/22 [History] Hx Tetanus, Diphtheria Vaccination/Date Given: Yes Hx Influenza Vaccination/Date Given: No Hx Pneumococcal Vaccination/Date Given: No Travel Risk - International Travel Have you traveled outside of the country in past 3 weeks: No - Coronavirus Screening Are you exhibiting any of the following symptoms?: Yes Symptoms: Headaches/Body Aches/Fatigue Close contact with a COVID-19 positive Pt in past 14-21 Days: No - Vaccine Status Have you recieved a Covid-19 vaccination: No - Review of Systems Constitutional: No Symptoms, No Fever, No Chills Eyes: No Symptoms Ears, Nose, & Throat: No Symptoms Respiratory: No Symptoms, No Cough, No Dyspnea Cardiac: No Symptoms, No Chest Pain, No Edema, No Syncope Abdominal/Gastrointestinal: No Symptoms, No Abdominal Pain, No Nausea, No Vomiting, No Diarrhea Genitourinary Symptoms: No Symptoms, No Dysuria Musculoskeletal: No Symptoms, No Back Pain, No Neck Pain Skin: No Symptoms, No Rash Neurological: No Symptoms, No Dizziness, No Focal Weakness, No Sensory Changes Psychological: No Symptoms Endocrine: No Symptoms Hematologic/Lymphatic: No Symptoms Immunological/Allergic: No Symptoms All Other Systems: Reviewed and Negative - Past Medical History Pertinent Past Medical History: Yes Neurological History: Migraines, Peripheral Neuropathy ENT History: Other Cardiac History: No Pertinent History Respiratory History: No Pertinent History Endocrine Medical History: No Pertinent History Musculoskeletal History: Fibromyalgia, Osteoarthritis GI Medical History: Crohns Disease, Hemorrhoids History: No Pertinent History Psycho-Social History: Anxiety, Depression Female Reproductive Disorders: No Pertinent History Other Medical History: Heel spurs, TMJ - Past Surgical History Past Surgical History: Yes Neuro Surgical History: No Pertinent History Cardiac: No Pertinent History Respiratory: No Pertinent History Gastrointestinal: Hernia Repair Genitourinary: No Pertinent History Musculoskeletal: No Pertinent History, Other Female Surgical History: Hysterectomy, Tubal Ligation Other Surgical History: groshong placement/removed, port placement/removed, left hand surgery, plantar fasciatits repair, heel spur removal - Social History Smoking Status: Current every day smoker How long have you smoked: "A LOT" Exposure to second hand smoke: Yes Drug Use: none Patient Lives Alone: No - Nursing Vital Signs Nursing Vital Signs: Initial Vital Signs Temperature 98.5 F 05/03/22 14:02 Pulse Rate 83 05/03/22 14:02 Blood Pressure 126/82 05/03/22 14:02 O2 Sat by Pulse Oximetry 100 05/03/22 14:02 Pain Scale Pain Intensity [Generalized] 6 Pain Intensity 6 - Physical Exam General Appearance: no apparent distress, alert Eye Exam: PERRL/EOMI, eyes nml inspection Ears, Nose, Throat Exam: normal ENT inspection, TMs normal, pharynx normal, moist mucous membranes Neck Exam: normal inspection, non-tender, supple, full range of motion Respiratory Exam: normal breath sounds, lungs clear, airway intact, No respiratory distress Cardiovascular Exam: regular rate/rhythm, normal heart sounds, normal peripheral pulses Gastrointestinal/Abdomen Exam: soft, normal bowel sounds, No tenderness, No mass Back Exam: normal inspection, normal range of motion, No CVA tenderness, No vertebral tenderness Extremity Exam: normal inspection, normal range of motion, pelvis stable Neurologic Exam: alert, oriented x 3, cooperative, normal mood/affect, nml cerebellar function, nml station & gait, sensation nml, No motor deficits Skin Exam: normal color, warm, dry, No rash Lymphatic Exam: No adenopathy SpO2 Interpretation: normal SpO2: 100 O2 Delivery: Room Air - Course Nursing assessment & vital signs reviewed: Yes Ordered Tests: Active Orders 24 hr Category Date Time Status [place] Screen Stat Lab 05/03/22 14:30 Completed Medication Summary Discontinued Medications Generic Name Dose Route Start Last Admin Trade Name Geo PRN Reason Stop Dose Admin Ketorolac Tromethamine 30 mg 05/03/22 14:32 05/03/22 14:52 Ketorolac Tromethamine 30 Mg/Ml Inj IM 05/03/22 14:33 30 mg STAT ONE Administration Ketorolac Tromethamine Confirm 05/03/22 14:50 Ketorolac Tromethamine 30 Mg/Ml Inj Administered 05/03/22 14:51 Dose 30 mg .ROUTE .STK-MED ONE Lab/Rad Data: Laboratory Results 05/03/22 05/03/22 Range/Units 14:50 14:30 Monoscreen NEGATIVE (Negative) Influenza Type A Ag NEGATIVE (NEGATIVE) Influenza Type B Ag NEGATIVE (NEGATIVE) RSV (PCR) NEGATIVE (Negative) SARS-CoV-2 (PCR) POSITIVE A (NEGATIVE) - Progress Progress: improved Progress Note: Patient reassessed. She feels much better. Toradol administered for myalgias. Work-up is positive for COVID-19. [place] negative. Vital stable. Patient voices no other complaints or concerns at this time. No indication for further work-up. Will discharge home. Patient agrees to follow-up with primary care doctor within 48 hours for evaluation. Dictation disclaimer 05/03/22 16:16 Counseled pt/family regarding: lab results, diagnosis, need for follow-up - Departure Departure Disposition: Home Clinical Impression: COVID-19, Myalgias, Viral syndrome Condition: Stable Critical Care Time: No Referrals: ESTEBAN DOZIER [Primary Care Provider] - Follow up/PCP as directed Instructions: COVID-19 (DC) Additional Instructions: Discharge/Care Plan ABHIJIT MURRELL RADHA was seen on 05/03/22 in the Emergency Room. The patient was counseled regarding Diagnosis,Lab results, Imaging studies, need for follow up and when to return to the Emergency Room. Prescriptions given: Discharge Note I have spoken with the patient and/or caregivers. I have explained the patient's condition, diagnosis and treatment plan based on the information available to me at this time. I have answered the patient's and/or caregiver's questions and addressed any concerns. The patient and/or caregivers have as good understanding of the patient's diagnosis, condition and treatment plan as can be expected at this point. The vital signs have been stable. The patient's condition is stable and appropriate for discharge from the emergency department. The patient will pursue further outpatient evaluation with the primary care physician or other designated or consulting physician as outlined in the discharge instructions. The patient and/or caregivers are agreeable to this plan of care and follow-up instructions have been explained in detail. The patient and/or caregivers have received these instruction. The patient/and or caregivers are aware that any significant change in condition or worsening of symptoms should prompt an immediate return to this or the closest emergency department or call 911.
== END 2022-05-03 16:18 | disposition home or self-care (01) ==
LOC: ED 13:15
DX: U07.1 COVID-19 (principal); M79.10 Myalgia, unspecified site; J02.9 Acute pharyngitis, unspecified; Z72.0 Tobacco use; Z28.310 Unvaccinated for COVID-19; Z79.899 Other long term (current) drug therapy
CPT/HCPCS: 0241U; 36415; 86308; 96372; 99283; J1885

== ENCOUNTER 2023-07-14 16:36 | Emergency (ER) | payer MEDICARE ==
[2023-07-14 16:50] VITALS: TEMP 97.1
[2023-07-14 17:17] LABS: Absolute Neutrophil Ct (ANC) 6.18 x10^3/uL (1.4-6.9); BASOPHIL % 0.8 % (0.0-0.4); Basophil (Absolute #) 0.07 x10^3/uL (0-0.4); Eosinophil % 2.1 % (0.00-5.0); Eosinophil (Absolute #) 0.19 x10^3/uL (0-0.5); Hematocrit 42.8 % (35-47); Hemoglobin 14.3 g/dL (12.0-16.0); IMMATURE GRAN # 0.02 x10^3u/L (0.00-0.03); IMMATURE GRAN % 0.2 % (0.00-0.4); Lymphocyte (Absolute #) 1.85 x10^3/uL (1.0-4.6); Lymphocytes % 20.8 % (24.0-44.0); Mean Cell Volume 90.3 fL (78-100); Mean Corpuscular Hemoglobin 30.2 pg (26-32); Mean Corpuscular Hgb Concent. 33.4 g/dL (32-36); Monocytes % 6.7 % (0.0-12.0); Neutrophil % 69.4 % (36.0-66.0); Platelet Count 216 x10^3/uL (150-450); Red Blood Count 4.74 x10^6/uL (4.1-5.4); Red Cell Distribution Width 13.1 % (11.5-14.0); White Blood Count 8.9 x10^3/uL (4.0-10.5)
[2023-07-14 17:19] LABS: ADD URINE CULTURE? YES (NO); Appearance Turbid (Clear); Bacteria Moderate /HPF (None Seen); Bilirubin Negative (Negative); Blood Moderate (Negative); Epithelial Cells Few /HPF (None Seen); Glucose, Urine Negative (Negative); Ketones Negative (Negative); Leukocyte Esterase Large (Negative); Nitrite Negative (Negative); Ph 5.5 (4.6-8.0); Protein,Urine Dip Trace (Negative); Specific Gravity 1.015 (1.005-1.030); Urobilinogen 0.2 mg/dL (0.2); WBC >100 /HPF (0-5)
[2023-07-14] MEDS ORDERED: Sodium Chloride 0.9% 1000 ML 1,000 ML ONE (17:20)
[2023-07-14] MEDS: Sodium Chloride 0.9% 1000 ML 1,000 ML IV STA (17:21)
[2023-07-14 17:29] LABS: ALBUMIN 4.1 g/dL (3.5-5.0); ANION GAP 8.4 MEQ/L (5-15); BILIRUBIN,TOTAL 0.8 mg/dL (0.2-1.3); Calcium 9.7 mg/dL (8.4-10.2); Creatinine 1 0.86 mg/dL (0.52-1.04); EST GLOMERULAR FILTRATION RATE 80.7 ML/MIN; Potassium 4.2 mmol/L (3.5-5.1); Total Protein 6.7 g/dL (6.3-8.2)
[2023-07-14 17:39] VITALS: RESP 18
[2023-07-14 17:47] LABS: INFLUENZA A NEGATIVE (NEGATIVE); INFLUENZA B NEGATIVE (NEGATIVE); RESPIRATORY SYNCTIAL VIRUS NEGATIVE (NEGATIVE); SARS-CoV-2 Xpert Express NEGATIVE (NEGATIVE)
[2023-07-14 18:04] VITALS: PULSE 83
[2023-07-14 19:05] VITALS: BP 129/68; O2SAT 100
--- NOTE | 2023-07-14 19:20 | ERPHSYRPT ---
- History of Present Illness Time Seen by Provider: 07/14/23 16:43 Historian: patient Exam Limitations: no limitations Patient Subjective Stated Complaint: Pt states "I have had diarrhea since about 430 this morning. I just kind of feel blah." Triage Nursing Assessment: Pt presented alert and oriented X 3, skin pwd. PT ambulates with an upright steady gait, able to speak in clear full sentences. Pt resting comfortably on the bed in no apparent distress. Physician History: 52 years old female with history of hypertension, pulmonary embolism on Eliquis, Crohn's disease presented in the ER with complaints of sudden onset diarrhea loose watery around 4:30 AM. Patient reports almost 9 episodes of diarrhea since then. Denies any hematochezia. Reports occasional abdominal cramping. Has minimal nausea at times but no vomiting. Denies any fever or chills. Denies any sick contact. Patient report her symptoms are different than Crohn's flareup. Because of repeated episodes of diarrhea feeling weak fatigued tired and dehydrated. Allergies/Adverse Reactions: warfarin sodium [From Coumadin] Adverse Reaction (Severe, Verified 05/03/22 14:12) Platelet count drop significantly. pt had excessive bleeding Home Medications: Cyclobenzaprine HCl [Flexeril] 10 mg PO HSPRN PRN 01/09/13 [History] Pramipexole Di-HCl [Mirapex] 1.5 mg PO HS 01/09/13 [History] Lisinopril 10 mg [Zestril 10 MG] 5 mg PO DAILY 04/01/15 [History] Ropinirole HCl [Requip] 1 mg PO HSPRN PRN 04/01/15 [History] Ondansetron [Ondansetron Odt] 8 mg PO HS 06/18/20 [History] Propranolol HCl [Inderal Xl] 120 mg PO HS 06/18/20 [History] Fluticasone Propionate [Flonase NASAL] 1 spray .ROUTE HS 08/24/21 [History] Naproxen 1 tab PO DAILY PRN 08/24/21 [History] Eszopiclone [Lunesta] 3 mg PO HS 05/03/22 [History] Hx Tetanus, Diphtheria Vaccination/Date Given: Yes Hx Influenza Vaccination/Date Given: No Hx Pneumococcal Vaccination/Date Given: No Immunizations Up to Date: No Travel Risk - International Travel Have you traveled outside of the country in past 3 weeks: No - Coronavirus Screening Are you exhibiting any of the following symptoms?: Yes Symptoms: Vomiting/Diarrhea Close contact with a COVID-19 positive Pt in past 14-21 Days: No - Vaccine Status Have you recieved a Covid-19 vaccination: No - Review of Systems Constitutional: Fatigue, Weakness Eyes: No Symptoms Ears, Nose, & Throat: No Symptoms Respiratory: No Symptoms Cardiac: No Symptoms Abdominal/Gastrointestinal: Nausea, Diarrhea Genitourinary Symptoms: No Symptoms Musculoskeletal: Myalgias Skin: No Symptoms Neurological: No Symptoms Psychological: No Symptoms Endocrine: No Symptoms - Past Medical History Pertinent Past Medical History: Yes Neurological History: Migraines, Peripheral Neuropathy ENT History: Other Cardiac History: No Pertinent History Respiratory History: No Pertinent History Endocrine Medical History: Other Musculoskeletal History: Fibromyalgia, Osteoarthritis, Other GI Medical History: Crohns Disease, Hemorrhoids History: No Pertinent History Psycho-Social History: Anxiety, Depression Female Reproductive Disorders: No Pertinent History Other Medical History: CROHN'S DISEASE, ANXIETY, DEPRESSION, TMJ DYSFUNCTION, DVT LEFT LE (ON ELIQUIS). SX HX: HEEL SPUR REMOVAL, SX FOR PLANTAR FASCITIS, LEFT HAND SURGERY, HERNIA REPAIR, HYSTERECTOMY. - Past Surgical History Past Surgical History: Yes Neuro Surgical History: No Pertinent History Cardiac: No Pertinent History Respiratory: No Pertinent History Gastrointestinal: Hernia Repair Genitourinary: No Pertinent History Musculoskeletal: No Pertinent History, Other Female Surgical History: Hysterectomy, Tubal Ligation Other Surgical History: groshong placement/removed, port placement/removed, left hand surgery, plantar fasciatits repair, heel spur removal - Social History Smoking Status: Current every day smoker How long have you smoked: "A LOT" Exposure to second hand smoke: Yes Drug Use: none Patient Lives Alone: No - Nursing Vital Signs Nursing Vital Signs: Initial Vital Signs Temperature 97.1 F 07/14/23 16:45 Pulse Rate 108 H 07/14/23 16:45 Respiratory Rate 20 07/14/23 16:45 Blood Pressure 145/89 07/14/23 16:45 O2 Sat by Pulse Oximetry 94 L 07/14/23 16:45 Pain Scale Pain Intensity 0 - Physical Exam General Appearance: no apparent distress, alert Eye Exam: PERRL/EOMI Ears, Nose, Throat Exam: normal ENT inspection Neck Exam: normal inspection, full range of motion Respiratory Exam: normal breath sounds, lungs clear Cardiovascular Exam: regular rate/rhythm, normal heart sounds Gastrointestinal/Abdomen Exam: soft, normal bowel sounds, No tenderness Extremity Exam: normal inspection, normal range of motion Neurologic Exam: alert, oriented x 3, cooperative, senior grants officer II-XII nml as tested Skin Exam: normal color SpO2 Interpretation: normal SpO2: 100 O2 Delivery: Room Air Ordered Tests: Active Orders 24 hr Category Date Time Status IV Insertion STAT Care 07/14/23 17:02 Active NPO (ED) STAT Care 07/14/23 17:02 Active CBC W DIFF Stat Lab 07/14/23 17:10 Completed CMP Stat Lab 07/14/23 17:10 Completed CULTURE,URINE Stat Lab 07/14/23 16:53 Received LIPASE Stat Lab 07/14/23 17:10 Completed UA W/RFX UR CULTURE Stat Lab 07/14/23 16:53 Completed Medication Summary Discontinued Medications Generic Name Dose Route Start Last Admin Trade Name Gerardq PRN Reason Stop Dose Admin Cephalexin HCl 500 mg 07/14/23 19:22 07/14/23 19:25 Cephalexin Mh500 Mg Capsule PO 07/14/23 19:23 500 mg STAT ONE Administration Cephalexin HCl Confirm 07/14/23 19:25 Cephalexin Mh500 Mg Capsule Administered 07/14/23 19:26 Dose 500 mg .ROUTE .STK-MED ONE Sodium Chloride 1,000 mls @ 999 mls/hr 07/14/23 17:02 07/14/23 18:26 Sodium Chloride 0.9% 1000 Ml IV 07/14/23 18:02 Infused .Q1H1M STA Infusion Sodium Chloride Confirm 07/14/23 17:20 Sodium Chloride 0.9% 1000 Ml Administered 07/14/23 17:21 Dose 1,000 mls @ ud .ROUTE .STK-MED ONE Lab/Rad Data: Laboratory Result Diagrams 07/14/23 17:10 07/14/23 17:10 Laboratory Results 07/14/23 07/14/23 07/14/23 Range/Units 17:10 17:10 17:00 WBC 8.9 (4.0-10.5) x10^3/uL RBC 4.74 (4.1-5.4) x10^6/uL Hgb 14.3 (12.0-16.0) g/dL Hct 42.8 (35-47) % MCV 90.3 (78-100) fL MCH 30.2 (26-32) pg MCHC 33.4 (32-36) g/dL RDW 13.1 (11.5-14.0) % Plt Count 216 (150-450) x10^3/uL MPV 11.0 (7.5-11.0) fL Gran % 69.4 H (36.0-66.0) % Immature Gran % (Auto) 0.2 (0.00-0.4) % Nucleat RBC Rel Count 0.0 (0.00-0.1) % Eos # (Auto) 0.19 (0-0.5) x10^3/uL Immature Gran # (Auto) 0.02 (0.00-0.03) x10^3u/L Absolute Lymphs (auto) 1.85 (1.0-4.6) x10^3/uL Absolute Monos (auto) 0.60 (0.0-1.3) x10^3/uL Absolute Nucleated RBC 0.00 (0.00-0.01) x10^3u/L Lymphocytes % 20.8 L (24.0-44.0) % Monocytes % 6.7 (0.0-12.0) % Eosinophils % 2.1 (0.00-5.0) % Basophils % 0.8 (0.0-0.4) % Absolute Granulocytes 6.18 (1.4-6.9) x10^3/uL Basophils # 0.07 (0-0.4) x10^3/uL Sodium 135 L (137-145) mmol/L Potassium 4.2 (3.5-5.1) mmol/L Chloride 105 (98-107) mmol/L Carbon Dioxide 25 (22-30) mmol/L Anion Gap 8.4 (5-15) MEQ/L BUN 16 (7-17) mg/dL Creatinine 0.86 (0.52-1.04) mg/dL Estimated GFR 80.7 ML/MIN Glucose 105 (74-106) mg/dL Calcium 9.7 (8.4-10.2) mg/dL Total Bilirubin 0.80 (0.2-1.3) mg/dL AST 19 (14-36) U/L ALT 14 (0-35) U/L Alkaline Phosphatase 81 (38-126) U/L Serum Total Protein 6.7 (6.3-8.2) g/dL Albumin 4.1 (3.5-5.0) g/dL Lipase 39 (23-300) U/L Urine Color (Yellow) Urine Appearance (Clear) Urine pH (4.6-8.0) Ur Specific [place] (1.005-1.030) Urine Protein (Negative) Urine Glucose (UA) (Negative) mg/dL Urine Ketones (Negative) Urine Blood (Negative) Urine Nitrite (Negative) Urine Bilirubin (Negative) Urine Urobilinogen (0.2) mg/dL Ur Leukocyte Esterase (Negative) U Hyaline Cast (Auto) (0-2) /LPF Urine Microscopic RBC (0-5) /HPF Urine Microscopic WBC (0-5) /HPF Ur Epithelial Cells (None Seen) /HPF Urine Bacteria (None Seen) /HPF Urine Culture Reflexed (NO) Influenza Type A Ag NEGATIVE (NEGATIVE) Influenza Type B Ag NEGATIVE (NEGATIVE) RSV (PCR) NEGATIVE (NEGATIVE) SARS-CoV-2 (PCR) NEGATIVE (NEGATIVE) 07/14/23 Range/Units 16:53 WBC (4.0-10.5) x10^3/uL RBC (4.1-5.4) x10^6/uL Hgb (12.0-16.0) g/dL Hct (35-47) % MCV (78-100) fL MCH (26-32) pg MCHC (32-36) g/dL RDW (11.5-14.0) % Plt Count (150-450) x10^3/uL MPV (7.5-11.0) fL Gran % (36.0-66.0) % Immature Gran % (Auto) (0.00-0.4) % Nucleat RBC Rel Count (0.00-0.1) % Eos # (Auto) (0-0.5) x10^3/uL Immature Gran # (Auto) (0.00-0.03) x10^3u/L Absolute Lymphs (auto) (1.0-4.6) x10^3/uL Absolute Monos (auto) (0.0-1.3) x10^3/uL Absolute Nucleated RBC (0.00-0.01) x10^3u/L Lymphocytes % (24.0-44.0) % Monocytes % (0.0-12.0) % Eosinophils % (0.00-5.0) % Basophils % (0.0-0.4) % Absolute Granulocytes (1.4-6.9) x10^3/uL Basophils # (0-0.4) x10^3/uL Sodium (137-145) mmol/L Potassium (3.5-5.1) mmol/L Chloride (98-107) mmol/L Carbon Dioxide (22-30) mmol/L Anion Gap (5-15) MEQ/L BUN (7-17) mg/dL Creatinine (0.52-1.04) mg/dL Estimated GFR ML/MIN Glucose (74-106) mg/dL Calcium (8.4-10.2) mg/dL Total Bilirubin (0.2-1.3) mg/dL AST (14-36) U/L ALT (0-35) U/L Alkaline Phosphatase (38-126) U/L Serum Total Protein (6.3-8.2) g/dL Albumin (3.5-5.0) g/dL Lipase (23-300) U/L Urine Color Yellow (Yellow) Urine Appearance Turbid A (Clear) Urine pH 5.5 (4.6-8.0) Ur Specific [place] 1.015 (1.005-1.030) Urine Protein Trace A (Negative) Urine Glucose (UA) Negative (Negative) mg/dL Urine Ketones Negative (Negative) Urine Blood Moderate A (Negative) Urine Nitrite Negative (Negative) Urine Bilirubin Negative (Negative) Urine Urobilinogen 0.2 (0.2) mg/dL Ur Leukocyte Esterase Large A (Negative) U Hyaline Cast (Auto) 3-5 A (0-2) /LPF Urine Microscopic RBC 6-10 A (0-5) /HPF Urine Microscopic WBC >100 A (0-5) /HPF Ur Epithelial Cells Few (None Seen) /HPF Urine Bacteria Moderate A (None Seen) /HPF Urine Culture Reflexed YES (NO) Influenza Type A Ag (NEGATIVE) Influenza Type B Ag (NEGATIVE) RSV (PCR) (NEGATIVE) SARS-CoV-2 (PCR) (NEGATIVE) - Progress Progress: improved, re-examined Progress Note: 07/14/23 19:19 53 years old is evaluated for diarrhea since morning. Patient denies any hematochezia. No abdominal tenderness. Normoactive bowel sounds. Given fluids, on reevaluation she is feeling much improved. Patient has normal white count, fairly unremarkable chemistries. She does have UTI and given Keflex here and to go home. Patient has negative flu COVID and RSV. Patient has no peritoneal signs on repeated evaluation either. She did not have any episodes of diarrhea while in the ER. I believe patient has either viral etiology symptoms or if it is related to food. I do not think patient needs imaging or any other workup. She is counseled on increase hydration and outpatient follow- up. Discussed signs symptoms of worsening needing return to ER which she seems understanding. Stable for discharge. Counseled pt/family regarding: lab results, diagnosis, need for follow-up Medical Desision Making - Diagnostic Testing Diagnostic test were ordered, analyzed, and reviewed by me: Yes - Risk of complications The pt has a mod risk of morbidity or mortality based on: Need for prescription drug management - Departure Departure Disposition: Home Clinical Impression: Diarrhea, Acute UTI (urinary tract infection) Condition: Stable Critical Care Time: No Referrals: TERENCE AVERY DO [Primary Care Provider] - Follow up with PCP 1 day Instructions: Diarrhea and Traveler's Diarrhea, Adult (DC) Additional Instructions: Drink plenty of fluids to keep yourself well-hydrated. Take Tylenol as needed. Take Zofran as needed for nausea. Follow-up with your primary care for reevaluation. Return to ER for intractable diarrhea/vomiting/abdominal pain/fever chills or blood in the stool etc. Prescriptions: Cephalexin Mh 500 mg [Keflex 500 mg] 500 mg PO TID #21 cap
[2023-07-14] MEDS: KEFLEX 500 MG PO ONE (19:25)
[2023-07-14] MEDS ORDERED: KEFLEX 500 MG ONE (19:25)
== END 2023-07-14 19:34 | disposition home or self-care (01) ==
LOC: ED 16:36
DX: R19.7 Diarrhea, unspecified (principal); N39.0 Urinary tract infection, site not specified; R10.9 Unspecified abdominal pain; Z79.899 Other long term (current) drug therapy; Z28.310 Unvaccinated for COVID-19; Z72.0 Tobacco use
CPT/HCPCS: 0241U; 36000; 36415; 80053; 81001; 83690; 85025; 87077; 87086; 87186; 96360; 99284; A9270-GY

== ENCOUNTER 2023-08-17 06:12 | Day surgery (SDC) | payer MEDICARE ==
[2023-08-17] MEDS: Lactated Ringers 1,000 ML IV SCH (06:45)
[2023-08-17] MEDS ORDERED: Versed 2 MG/2 ML Injection ONE (07:02)
[2023-08-17] MEDS ORDERED: DIPRIVAN 200 MG/20 ML IV ONE ×2 (07:02→07:14)
[2023-08-17 07:52] VITALS: RESP 16
[2023-08-17 08:06] VITALS: BP 127/87; PULSE 75; TEMP 96.9; O2SAT 100
--- NOTE | 2023-08-17 13:52 | OP ---
SURGERY DATE/TIME: 08/17/2023 0703 PREOPERATIVE DIAGNOSIS: Screening colonoscopy. POSTOPERATIVE DIAGNOSIS: Normal colon. PROCEDURE: Colonoscopy. SURGEON: Aníbal Calles M.D. ANESTHESIA: MAC by Dharmesh Reno CRNA. ESTIMATED BLOOD LOSS: None. SPECIMENS: None. DESCRIPTION OF PROCEDURE: After informed written consent was obtained, the patient was taken to the endoscopy suite. She was placed in left lateral decubitus position and anesthesia was titrated to desired level of consciousness. Digital rectal exam showed normal sphincter tone and no internal lesions. The scope was inserted into the rectum and sequentially the entire colonic mucosa was traversed. The level of cecum was reached and verified with direct visualization of the ileocecal valve. Upon withdrawal careful mucosal inspection revealed no gross abnormalities. Prep was noted to be good. Prior to withdrawal retroflexion showed no internal lesions. The scope was removed. The patient was transferred to the recovery room in good condition.
== END 2023-08-17 08:16 | disposition home or self-care (01) ==
LOC: SDC 06:12
PROVIDERS: ATTEND Family Medicine
DX: Z12.11 Encounter for screening for malignant neoplasm of colon (principal)
CPT/HCPCS: J2250; J2704

== ENCOUNTER 2023-10-14 12:25 | Emergency (ER) | payer MEDICARE ==
[2023-10-14 12:41] VITALS: TEMP 98.4
--- NOTE | 2023-10-14 12:49 | ERPHSYRPT ---
- History of Present Illness Time Seen by Provider: 10/14/23 12:45 Source: patient, family Exam Limitations: no limitations Patient Subjective Stated Complaint: Pt states "I have been chilling, my bladder hurts, my throat hurts, I have some sinus congestion and I just hurt all over." Triage Nursing Assessment: Pt presented alert and oriented X 3, skin pwd. PT ambulates with an upright steady gait able to speak in clear full sentences. Pt resting comfortably on the bed. Physician History: This is a 53-year-old white female patient of Dr. Avery who presents to the emergency department with complaints of vomiting, bladder pain and urinary tract infection symptoms, chilling, sore throat, sinus congestion, body aches. The symptoms started yesterday. Patient has had a mild cough. She has not had any diarrhea symptoms. She arrives with emergency department with a 98% room air oxygen saturation level and is afebrile. Patient has a history of migraine headaches, peripheral neuropathy, DVT on Eliquis, hypertension, fibromyalgia, Crohn disease and anxiety. Timing/Duration: yesterday Activites at Onset: none Quality: aching Onset Location: suprapubic Pain Radiation: none Severity of Pain-Max: mild (To moderate) Severity of Pain-Current: mild (To moderate) Sexual intercourse history: non-contributory Modifying Factors: Improves With: nothing Associated Symptoms: chills, nausea, vomiting, other (Body aches) Allergies/Adverse Reactions: Latex, Natural Rubber Allergy (Verified 08/17/23 06:07) warfarin sodium [From Coumadin] Adverse Reaction (Severe, Verified 08/17/23 06:07) Platelet count drop significantly. pt had excessive bleeding Home Medications: Cyclobenzaprine HCl [Flexeril] 10 mg PO TID PRN 01/09/13 [History] Lisinopril 10 mg [Zestril 10 MG] 5 mg PO DAILY 04/01/15 [History] Ropinirole HCl [Requip] 1 mg PO HSPRN 04/01/15 [History] Propranolol HCl [Inderal Xl] 120 mg PO HS 06/18/20 [History] Fluticasone Propionate [Flonase NASAL] 1 spray .ROUTE HS 08/24/21 [Histo ry] Naproxen 1 tab PO DAILY PRN 08/24/21 [History] Eszopiclone [Lunesta] 3 mg PO HS 05/03/22 [History] Methimazole 10 mg PO DAILY 10/14/23 [History] Pramipexole Di-HCl [Pramipexole ER] 1.5 mg PO DAILY 10/14/23 [History] Hx Tetanus, Diphtheria Vaccination/Date Given: Yes Hx Influenza Vaccination/Date Given: No Hx Pneumococcal Vaccination/Date Given: No Travel Risk - International Travel Have you traveled outside of the country in past 3 weeks: No - Emerging Infectious Disease Are you exhibiting symptoms associated with any current EIDs: Yes Symptoms: Abdominal Pain, Fever, Headaches/Body Aches/ - Review of Systems Constitutional: Chills Eyes: No Symptoms Ears, Nose, & Throat: Throat Pain Respiratory: No Symptoms Cardiac: No Symptoms Abdominal/Gastrointestinal: Nausea, Vomiting Genitourinary Symptoms: Other ("Bladder pain") Musculoskeletal: Arthralgias, Myalgias Skin: No Symptoms Neurological: No Symptoms Psychological: No Symptoms Endocrine: No Symptoms Hematologic/Lymphatic: No Symptoms Immunological/Allergic: No Symptoms All Other Systems: Reviewed and Negative - Past Medical History Pertinent Past Medical History: Yes Neurological History: Migraines, Peripheral Neuropathy ENT History: Other Cardiac History: Deep Vein Thrombosis, Hypertension, Other Respiratory History: No Pertinent History Endocrine Medical History: Other Musculoskeletal History: Fibromyalgia, Osteoarthritis, Other GI Medical History: Crohns Disease, Hemorrhoids History: No Pertinent History Psycho-Social History: Anxiety, Depression Female Reproductive Disorders: No Pertinent History Other Medical History: CROHN'S DISEASE, ANXIETY, DEPRESSION, TMJ DYSFUNCTION, DVT LEFT LE (ON ELIQUIS). SX HX: HEEL SPUR REMOVAL, SX FOR PLANTAR FASCITIS, LEFT HAND SURGERY, HERNIA REPAIR, HYSTERECTOMY. raynaud's - Past Surgical History Past Surgical History: Yes Neuro Surgical History: No Pertinent History Cardiac: No Pertinent History Respiratory: No Pertinent History Gastrointestinal: Hernia Repair Genitourinary: No Pertinent History Musculoskeletal: No Pertinent History, Other Female Surgical History: Hysterectomy, Tubal Ligation Other Surgical History: groshong placement/removed, port placement/removed, left hand surgery, plantar fasciatits repair, heel spur removal - Female History Hx Last Menstrual Period: hysterectomy Hx Now: No - Social History Smoking Status: Current every day smoker How long have you smoked: "A LOT" Exposure to second hand smoke: Yes Drug Use: none Patient Lives Alone: No - Nursing Vital Signs Nursing Vital Signs: Initial Vital Signs Temperature 98.4 F 10/14/23 12:37 Pulse Rate 94 H 10/14/23 12:37 Respiratory Rate 20 10/14/23 12:37 Blood Pressure 130/81 10/14/23 12:37 O2 Sat by Pulse Oximetry 98 10/14/23 12:37 Pain Scale Pain Intensity 4 - Physical Exam General Appearance: no apparent distress, alert, anxiety Eye Exam: PERRL/EOMI, eyes nml inspection Ears, Nose, Throat Exam: normal ENT inspection, moist mucous membranes Neck Exam: normal inspection, non-tender, supple, full range of motion Respiratory Exam: normal breath sounds, lungs clear, airway intact, No chest tenderness, No respiratory distress Cardiovascular Exam: regular rate/rhythm, normal heart sounds, normal peripheral pulses Gastrointestinal/Abdomen Exam: soft, normal bowel sounds, No tenderness Pelvic Exam: not done Rectal Exam: not done Back Exam: normal inspection, normal range of motion, No CVA tenderness, No vertebral tenderness Extremity Exam: normal inspection, normal range of motion, pelvis stable Neurologic Exam: alert, oriented x 3, cooperative, 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 nml as tested, nml cerebellar function, nml station & gait, sensation nml Skin Exam: normal color, warm, dry Lymphatic Exam: No adenopathy SpO2 Interpretation: normal SpO2: 98 O2 Delivery: Room Air - Course Nursing assessment & vital signs reviewed: Yes Ordered Tests: Active Orders 24 hr Category Date Time Status IV Insertion STAT Care 10/14/23 13:15 Active Pulse Oximetry (ED) STAT Care 10/14/23 13:15 Active CHEST 1 VIEW (PORTABLE) Stat Exams 10/14/23 13:16 Completed BLOOD CULTURE Stat Lab 10/14/23 13:45 Ordered CBC W DIFF Stat Lab 10/14/23 13:10 Completed CMP Stat Lab 10/14/23 13:10 Completed CULTURE,URINE Stat Lab 10/14/23 13:35 Received MONO SCREEN Stat Lab 10/14/23 13:10 Completed UA W/RFX UR CULTURE Stat Lab 10/14/23 13:35 Completed Medication Summary Discontinued Medications Generic Name Dose Route Start Last Admin Trade Name Freq PRN Reason Stop Dose Admin Hydrocodone Bitart/Acetaminophen 10 ml 10/14/23 13:16 10/14/23 13:27 Hydrocodone/Acetaminophen 5 Ml Udcup PO 10/14/23 13:17 10 ml STAT STA Administration Hydrocodone Bitart/Acetaminophen Confirm 10/14/23 13:21 Hydrocodone/Acetaminophen 5 Ml Udcup Administered 10/14/23 13:22 Dose 10 ml .ROUTE .STK-MED ONE Sodium Chloride 1,000 mls @ 999 mls/hr 10/14/23 13:15 10/14/23 14:47 Sodium Chloride 0.9% 1000 Ml IV 10/14/23 14:15 Infused .Q1H1M STA Infusion Sodium Chloride Confirm 10/14/23 13:21 Sodium Chloride 0.9% 1000 Ml Administered 10/14/23 13:22 Dose 1,000 mls @ ud .ROUTE .STK-MED ONE Ondansetron HCl 4 mg 10/14/23 13:17 10/14/23 13:25 Ondansetron Hcl 4 Mg/2 Ml Vial IV 10/14/23 13:18 4 mg STAT ONE Administration Ondansetron HCl Confirm 10/14/23 13:21 Ondansetron Hcl 4 Mg/2 Ml Vial Administered 10/14/23 13:22 Dose 4 mg .ROUTE .STK-MED ONE Lab/Rad Data: Laboratory Result Diagrams 10/14/23 13:10 10/14/23 13:10 Laboratory Results 10/14/23 10/14/23 10/14/23 Range/Units 13:45 13:45 13:35 WBC (4.0-10.5) x10^3/uL RBC (4.1-5.4) x10^6/uL Hgb (12.0-16.0) g/dL Hct (35-47) % MCV (78-100) fL MCH (26-32) pg MCHC (32-36) g/dL RDW (11.5-14.0) % Plt Count (150-450) x10^3/uL MPV (7.5-11.0) fL Gran % (36.0-66.0) % Immature Gran % (Auto) (0.00-0.4) % Nucleat RBC Rel Count (0.00-0.1) % Eos # (Auto) (0-0.5) x10^3/uL Immature Gran # (Auto) (0.00-0.03) x10^3u/L Absolute Lymphs (auto) (1.0-4.6) x10^3/uL Absolute Monos (auto) (0.0-1.3) x10^3/uL Absolute Nucleated RBC (0.00-0.01) x10^3u/L Lymphocytes % (24.0-44.0) % Monocytes % (0.0-12.0) % Eosinophils % (0.00-5.0) % Basophils % (0.0-0.4) % Absolute Granulocytes (1.4-6.9) x10^3/uL Basophils # (0-0.4) x10^3/uL Sodium (135-145) mmol/L Potassium (3.5-5.1) mmol/L Chloride (98-107) mmol/L Carbon Dioxide (22-30) mmol/L Anion Gap (5-15) MEQ/L BUN (7-17) mg/dL Creatinine (0.52-1.04) mg/dL Estimated GFR ML/MIN Glucose (74-106) mg/dL Calcium (8.4-10.2) mg/dL Total Bilirubin (0.2-1.3) mg/dL AST (14-36) U/L ALT (0-35) U/L Alkaline Phosphatase (38-126) U/L Serum Total Protein (6.3-8.2) g/dL Albumin (3.5-5.0) g/dL Urine Color Yellow (Yellow) Urine Appearance Cloudy A (Clear) Urine pH 6.0 (4.6-8.0) Ur Specific [place] 1.020 (1.005-1.030) Urine Protein 100 A (Negative) Urine Glucose (UA) Negative (Negative) mg/dL Urine Ketones Negative (Negative) Urine Blood Moderate A (Negative) Urine Nitrite Negative (Negative) Urine Bilirubin Negative (Negative) Urine Urobilinogen 0.2 (0.2) mg/dL Ur Leukocyte Esterase Moderate A (Negative) U Hyaline Cast (Auto) NONE SEEN (0-2) /LPF Urine Microscopic RBC 21-50 A (0-5) /HPF Urine Microscopic WBC >100 A (0-5) /HPF Ur Epithelial Cells Few (None Seen) /HPF Urine Bacteria Rare A (None Seen) /HPF Urine Culture Reflexed YES (NO) Monoscreen (NEGATIVE) Influenza Type A Ag NEGATIVE (NEGATIVE) Influenza Type B Ag NEGATIVE (NEGATIVE) RSV (PCR) NEGATIVE (NEGATIVE) SARS-CoV-2 (PCR) NEGATIVE (NEGATIVE) Group A Strep Antibody NOT DETECTED (NEGATIVE) Slides for Path Review 10/14/23 10/14/23 10/14/23 Range/Units 13:10 13:10 13:10 WBC 6.3 (4.0-10.5) x10^3/uL RBC 5.19 (4.1-5.4) x10^6/uL Hgb 15.6 (12.0-16.0) g/dL Hct 44.6 (35-47) % MCV 85.9 (78-100) fL MCH 30.1 (26-32) pg MCHC 35.0 (32-36) g/dL RDW 12.4 (11.5-14.0) % Plt Count 189 (150-450) x10^3/uL MPV 10.6 (7.5-11.0) fL Gran % 85.1 H (36.0-66.0) % Immature Gran % (Auto) 0.2 (0.00-0.4) % Nucleat RBC Rel Count 0.0 (0.00-0.1) % Eos # (Auto) 0.02 (0-0.5) x10^3/uL Immature Gran # (Auto) 0.01 (0.00-0.03) x10^3u/L Absolute Lymphs (auto) 0.53 L (1.0-4.6) x10^3/uL Absolute Monos (auto) 0.33 (0.0-1.3) x10^3/uL Absolute Nucleated RBC 0.00 (0.00-0.01) x10^3u/L Lymphocytes % 8.5 L (24.0-44.0) % Monocytes % 5.3 (0.0-12.0) % Eosinophils % 0.3 (0.00-5.0) % Basophils % 0.6 (0.0-0.4) % Absolute Granulocytes 5.32 (1.4-6.9) x10^3/uL Basophils # 0.04 (0-0.4) x10^3/uL Sodium 134 L (135-145) mmol/L Potassium 4.1 (3.5-5.1) mmol/L Chloride 103 (98-107) mmol/L Carbon Dioxide 23 (22-30) mmol/L Anion Gap 12.1 (5-15) MEQ/L BUN 15 (7-17) mg/dL Creatinine 0.81 (0.52-1.04) mg/dL Estimated GFR 86.8 ML/MIN Glucose 119 H (74-106) mg/dL Calcium 8.9 (8.4-10.2) mg/dL Total Bilirubin 0.50 (0.2-1.3) mg/dL AST 22 (14-36) U/L ALT 21 (0-35) U/L Alkaline Phosphatase 90 (38-126) U/L Serum Total Protein 7.0 (6.3-8.2) g/dL Albumin 4.4 (3.5-5.0) g/dL Urine Color (Yellow) Urine Appearance (Clear) Urine pH (4.6-8.0) Ur Specific [place] (1.005-1.030) Urine Protein (Negative) Urine Glucose (UA) (Negative) mg/dL Urine Ketones (Negative) Urine Blood (Negative) Urine Nitrite (Negative) Urine Bilirubin (Negative) Urine Urobilinogen (0.2) mg/dL Ur Leukocyte Esterase (Negative) U Hyaline Cast (Auto) (0-2) /LPF Urine Microscopic RBC (0-5) /HPF Urine Microscopic WBC (0-5) /HPF Ur Epithelial Cells (None Seen) /HPF Urine Bacteria (None Seen) /HPF Urine Culture Reflexed (NO) Monoscreen NEGATIVE (NEGATIVE) Influenza Type A Ag (NEGATIVE) Influenza Type B Ag (NEGATIVE) RSV (PCR) (NEGATIVE) SARS-CoV-2 (PCR) (NEGATIVE) Group A Strep Antibody (NEGATIVE) Slides for Path Review YES - Progress Progress: improved, re-examined Air Movement: good Progress Note: 10/14/23 14:00 My medical decision making and the assignment of moderate complexity to this patient's medical issue today is based on review of the patient's past medical history, review the patient's medication list, review of patient drug allergy list, history present illness and physical findings on examination. The workup in this patient includes placement of intravenous line, infusion of normal saline solution, infusion of 4 mg of Zofran, hydrocodone/acetaminophen elixir for cough and sore throat control, CBC, CMP, urinalysis, viral swabs, monotest, group A strep test and chest x-ray. 10/14/23 14:01 Differential diagnosis includes viral illness, strep pharyngitis, urinary tract infection, electrolyte abnormalities, dehydration 10/14/23 14:05 Chest x-ray was interpreted by the radiologist and I reviewed the impression. T he impression states normal heart and lungs. No new or acute findings. 10/14/23 14:52 I interpreted this patient's laboratory data results. The patient has a significant urinary tract infection. We will provide her with an intravenous dose of Rocephin. Will then send a prescription for cefdinir to her pharmacy. Blood Culture(s) Obtained: No Antibiotics given: Yes Counseled pt/family regarding: lab results, diagnosis, need for follow-up Medical Desision Making - Diagnostic Testing Diagnostic test were ordered, analyzed, and reviewed by me: Yes Radiological Interpretation: Reviewed by me, Teleradiologist Report - Risk of complications The pt has a mod risk of morbidity or mortality based on: Need for prescription drug management - Departure Departure Disposition: Home Clinical Impression: Urinary tract infection Condition: Stable Critical Care Time: No Referrals: TERENCE AVERY DO [Primary Care Provider] - Follow up/PCP as directed Additional Instructions: Drink plenty of fluids. Take your medications as prescribed. Call your primary care provider on 10/17/2023, to make arrangements for follow-up appointment to be seen in the next 3 to 5 days. Use Tylenol for pain and fever control if there are no contraindications to do so. Prescriptions: Cefdinir 300 mg PO BID #14 cap
[2023-10-14] MEDS ORDERED: HYDROCODONE-ACETAMIN 2.5-108/5 ML SOLUTION ONE (13:21)
[2023-10-14] MEDS ORDERED: Sodium Chloride 0.9% 1000 ML 1,000 ML ONE (13:21)
[2023-10-14] MEDS ORDERED: Zofran 4 MG/2 ML VIAL ONE (13:21)
[2023-10-14] MEDS: Sodium Chloride 0.9% 1000 ML 1,000 ML IV STA (13:24)
[2023-10-14] MEDS: Zofran 4 MG/2 ML VIAL IV ONE (13:25)
[2023-10-14 13:27] LABS: Absolute Neutrophil Ct (ANC) 5.32 x10^3/uL (1.4-6.9); BASOPHIL % 0.6 % (0.0-0.4); Basophil (Absolute #) 0.04 x10^3/uL (0-0.4); Eosinophil % 0.3 % (0.00-5.0); Eosinophil (Absolute #) 0.02 x10^3/uL (0-0.5); Hematocrit 44.6 % (35-47); Hemoglobin 15.6 g/dL (12.0-16.0); IMMATURE GRAN # 0.01 x10^3u/L (0.00-0.03); IMMATURE GRAN % 0.2 % (0.00-0.4); Lymphocyte (Absolute #) 0.53 x10^3/uL (1.0-4.6); Lymphocytes % 8.5 % (24.0-44.0); Mean Cell Volume 85.9 fL (78-100); Mean Corpuscular Hemoglobin 30.1 pg (26-32); Mean Platelet Volume 10.6 fL (7.5-11.0); Monocyte (Absolute #) 0.33 x10^3/uL (0.0-1.3); Monocytes % 5.3 % (0.0-12.0); Neutrophil % 85.1 % (36.0-66.0); Platelet Count 189 x10^3/uL (150-450); Red Blood Count 5.19 x10^6/uL (4.1-5.4); Red Cell Distribution Width 12.4 % (11.5-14.0); White Blood Count 6.3 x10^3/uL (4.0-10.5)
[2023-10-14] MEDS: HYDROCODONE-ACETAMIN 2.5-108/5 ML SOLUTION PO STA (13:27)
--- NOTE | 2023-10-14 13:32 | XRAY ---
Indication: Cough and sore throat. Comparison: October 14, 2020 Portable chest again demonstrates normal heart and lungs with incidental tiny right lung calcified granuloma. Bony thorax intact. No new/acute findings.
[2023-10-14 13:39] LABS: ALBUMIN 4.4 g/dL (3.5-5.0); ANION GAP 12.1 MEQ/L (5-15); BILIRUBIN,TOTAL 0.5 mg/dL (0.2-1.3); Calcium 8.9 mg/dL (8.4-10.2); Creatinine 1 0.81 mg/dL (0.52-1.04); EST GLOMERULAR FILTRATION RATE 86.8 ML/MIN; Potassium 4.1 mmol/L (3.5-5.1)
[2023-10-14 14:23] LABS: INFLUENZA A NEGATIVE (NEGATIVE); INFLUENZA B NEGATIVE (NEGATIVE); RESPIRATORY SYNCTIAL VIRUS NEGATIVE (NEGATIVE); SARS-CoV-2 Xpert Express NEGATIVE (NEGATIVE)
[2023-10-14 14:41] LABS: Slide Review 1 YES
[2023-10-14 14:45] LABS: Appearance Cloudy (Clear); Bacteria Rare /HPF (None Seen); Bilirubin Negative (Negative); Blood Moderate (Negative); Epithelial Cells Few /HPF (None Seen); Glucose, Urine Negative (Negative); Hyaline Casts NONE SEEN /LPF (0-2); Ketones Negative (Negative); Leukocyte Esterase Moderate (Negative); Nitrite Negative (Negative); Protein,Urine Dip 100 (Negative); RBC 21-50 /HPF (0-5); Urobilinogen 0.2 mg/dL (0.2); WBC >100 /HPF (0-5)
[2023-10-14 14:48] LABS: ADD URINE CULTURE? YES (NO)
[2023-10-14] MEDS: ROCEPHIN 1 GM / 100 ML NaCl 1 GM/100 ML IVPB IV ONE (14:55)
[2023-10-14] MEDS ORDERED: ROCEPHIN 1 GM / 100 ML NaCl 1 GM/100 ML IVPB IV ONE (14:55)
[2023-10-14 15:12] VITALS: BP 106/81; PULSE 92; RESP 19; O2SAT 92
== END 2023-10-14 15:35 | disposition home or self-care (01) ==
LOC: ED 12:25
DX: N39.0 Urinary tract infection, site not specified (principal); R11.2 Nausea with vomiting, unspecified; R39.89 Other symptoms and signs involving the genitourinary system; J02.9 Acute pharyngitis, unspecified; M79.10 Myalgia, unspecified site; R05.9 Cough, unspecified; I10 Essential (primary) hypertension; Z79.01 Long term (current) use of anticoagulants; Z79.899 Other long term (current) drug therapy; Z72.0 Tobacco use
CPT/HCPCS: 0241U; 36000; 36415; 71045; 80053; 81001; 85025; 86308; 87040; 87077; 87086; 87186; 87651; 94760; 96360; 96365; 96374; 99284; J0696; J2405; A9270-GY

== ENCOUNTER 2024-05-14 11:54 | Day surgery (SDC) | payer MEDICARE ==
[2024-05-14] MEDS ORDERED: DIPRIVAN 200 MG/20 ML IV ONE ×2 (13:59→14:13)
[2024-05-14 14:46] VITALS: PULSE 71; RESP 16
[2024-05-14 14:53] VITALS: BP 116/77; O2SAT 99
[2024-05-14 15:12] VITALS: TEMP 97.6
--- NOTE | 2024-05-15 14:07 | OP ---
SURGERY DATE/TIME: 05/14/2024 [id number] PREOPERATIVE DIAGNOSIS: Dysphagia. POSTOPERATIVE DIAGNOSIS: Gastritis with superficial peptic ulcer disease, duodenal bulb duodenitis, small hiatal hernia, and reflux esophagitis. PROCEDURE: Esophagogastroduodenoscopy with cold forceps biopsies. SURGEON: Nia Mittal MD ANESTHESIA: MAC. ESTIMATED BLOOD LOSS: Minimal. COMPLICATIONS: None. SPECIMENS: Gastric antrum, rule out H pylori; and distal esophagus, rule out Velasco's. INDICATIONS: This is a patient who presents for an EGD due to dysphagia symptoms. She is also having some dyspepsia. I have seen her prior to our operative day in the office and discussed the procedure with her. I also saw her on the day of the procedure. We again discussed the procedure. She understands the risks and the benefits and the alternatives. All questions have been answered to her satisfaction, and she wishes to proceed. Consent has been obtained, and an H and P has been performed as well. DESCRIPTION OF PROCEDURE AND FINDINGS: She was then brought back to the endoscopy suite, laid in the left lateral decubitus position. A complete time-out was performed. The scope was gently introduced into the mouth, oropharynx, down into the esophagus, stomach, and then to the duodenum. We continued to approximately the second portion of the duodenum, and then the scope was carefully withdrawn. This portion distally at the distal-most aspect that we reached was normal. As we withdrew our scope back into the bulb, the patient does have erythema with mild duodenitis here. In the stomach, she has multiple sites of erythema in the antrum and the lower body. She does have 2 sites that appear to be very superficial ulcerations with specks of blood. The remainder of the stomach does have some patchy gastritis. On retroflexed view, she has a small hiatal hernia. There are no masses or findings of concern outside of the superficial ulcers and the gastritis. I then proceeded to take antral biopsies and sent these to Pathology. These sites are all hemostatic. This was done with cold forceps. We then withdrew the scope back into the distal esophagus. In the distal esophagus, the patient does have some reflux changes. These appear to be early and consistent with reflux esophagitis. We did take a couple small biopsies to rule out early Velasco disease, and then we sent these to Pathology. The GE junction is at approximately 38 to 39 cm, and the hernia is a small 1 to 2 cm sliding hiatal hernia. The remainder of the esophagus as normal as we withdrew the scope. Of note, the scope entered the cervical esophagus very easily, and then was we withdraw, there is no sign of any narrowing at all anywhere in the esophagus. I suspect that her symptoms are related to the hiatal hernia and reflux disease. The scope was then fully removed, and the patient tolerated the procedure well. She was transferred to the PACU in a stable condition. In PACU once she had recovered, we did discuss her preliminary results, strategies for antireflux lifestyle and diet. I have given her a prescription for Carafate and given her instructions for Carafate, as well as given her a prescription for Protonix. We have discussed smoking cessation as well and avoidance of NSAIDs. She will be starting her Eliquis tomorrow.
== END 2024-05-14 15:13 | disposition home or self-care (01) ==
LOC: SDC 11:54
PROVIDERS: ATTEND Surgery
DX: K27.9 Peptic ulcer, site unspecified, unspecified as acute or chronic, without hemorrhage or perforation (principal); K29.80 Duodenitis without bleeding; K29.70 Gastritis, unspecified, without bleeding; R13.10 Dysphagia, unspecified; K44.9 Diaphragmatic hernia without obstruction or gangrene; K21.00 Gastro-esophageal reflux disease with esophagitis, without bleeding
CPT/HCPCS: J2704

== ENCOUNTER 2024-09-26 14:47 | Emergency (ER) | payer MEDICARE ==
[2024-09-26 15:12] VITALS: TEMP 99.2; O2SAT 96
[2024-09-26] MEDS ORDERED: Lasix 40 MG/4 ML ONE (15:32)
[2024-09-26 15:34] LABS: Absolute Neutrophil Ct (ANC) 4.28 x10^3/uL (1.56-6.13); Basophil (Absolute #) 0.07 x10^3/uL (0.01-0.08); Eosinophil % 3.1 % (0.7-5.8); Eosinophil (Absolute #) 0.22 x10^3/uL (0.04-0.36); Hematocrit 37.4 % (34.1-44.9); Hemoglobin 12.8 g/dL (11.2-15.7); IMMATURE GRAN # 0.03 x10^3u/L (0.001-0.031); IMMATURE GRAN % 0.4 % (0.001-0.429); Lymphocytes % 28.6 % (19.3-51.7); Mean Cell Volume 85.4 fL (79.4-94.8); Mean Corpuscular Hemoglobin 29.2 pg (25.6-32.2); Mean Corpuscular Hgb Concent. 34.2 g/dL (32.2-35.5); Monocytes % 5.7 % (4.7-12.5); Neutrophil % 61.2 % (34.0-71.1); Platelet Count 197 x10^3/uL (182-369); Red Blood Count 4.38 x10^6/uL (3.93-5.22); Red Cell Distribution Width 12.3 % (11.7-14.4)
[2024-09-26] MEDS: Lasix 40 MG/4 ML IV ONE (15:34)
[2024-09-26 15:56] LABS: ANION GAP 12.6 MEQ/L (5-15); Calcium 9.3 mg/dL (8.4-10.2); Creatinine 1 0.83 mg/dL (0.52-1.04); EST GLOMERULAR FILTRATION RATE 83.7 ML/MIN; Potassium 4.3 mmol/L (3.5-5.1)
[2024-09-26 16:15] LABS: Appearance Clear (Clear); Bacteria None Seen /HPF (None Seen); Bilirubin Negative (Negative); Blood Negative (Negative); Epithelial Cells None Seen /HPF (None Seen); Glucose, Urine Negative (Negative); Hyaline Casts NONE SEEN /LPF (0-2); Ketones Negative (Negative); Leukocyte Esterase Negative (Negative); Nitrite Negative (Negative); Ph 6.5 (4.6-8.0); Protein,Urine Dip Negative (Negative); RBC 0-2 /HPF (0-5); Urobilinogen 0.2 mg/dL (0.2); WBC 0-2 /HPF (0-5)
--- NOTE | 2024-09-26 17:08 | ERPHSYRPT ---
- History of Present Illness Source: patient Patient Subjective Stated Complaint: C/O swelling to hands, feet, face that she states began last night and is very painful today Triage Nursing Assessment: Patient ambulated back to ER. She is alert and oriented. NO SOB. Patient's hands, feet, and face are red/flushed and noted to be swollen. Skin intact to these areas at this time. BRISEIDA HA. Physician History: Patient has edema in her hands and feet. This has happened before. Still a bit worse than usual. Her doctor told her to come in because they were worried about blood clots. There is no evidence of any kind of venous thrombosis. It looks like basic peripheral edema she has had it happen multiple times before. She has not had a chest pain or shortness of breath. Nothing makes his symptoms better or worse. It is painful and stings little bit at times. She does take furosemide.She said that she did not have any meals that were heavy insults or anything like that. Allergies/Adverse Reactions: Latex, Natural Rubber Allergy (Verified 09/26/24 14:55) warfarin sodium [From Coumadin] Adverse Reaction (Severe, Verified 09/26/24 14:55) Platelet count drop significantly. pt had excessive bleeding Home Medications: Lisinopril 10 mg [Zestril 10 MG] 5 mg PO DAILY 04/01/15 [History] Ropinirole HCl [Requip] 1 mg PO HSPRN 04/01/15 [History] Propranolol HCl [Inderal Xl] 120 mg PO HS 06/18/20 [History] Fluticasone Propionate [Flonase NASAL] 1 spray .ROUTE HS 08/24/21 [History] Methimazole 10 mg PO DAILY 10/14/23 [History] Pramipexole Di-HCl [Pramipexole ER] 1.5 mg PO DAILY 10/14/23 [History] Hx Tetanus, Diphtheria Vaccination/Date Given: Yes Hx Influenza Vaccination/Date Given: No Hx Pneumococcal Vaccination/Date Given: No Immunizations Up to Date: Yes Travel Risk - International Travel Have you traveled outside of the country in past 3 weeks: No - Emerging Infectious Disease Are you exhibiting symptoms associated with any current EIDs: No Symptoms: Abdominal Pain, Fever, Headaches/Body Aches/ - Review of Systems Constitutional: No Symptoms Eyes: No Symptoms Respiratory: No Symptoms Cardiac: No Symptoms Musculoskeletal: No Symptoms Skin: No Symptoms - Past Medical History Pertinent Past Medical History: Yes Neurological History: Migraines, Peripheral Neuropathy ENT History: Other Cardiac History: Deep Vein Thrombosis, High Cholesterol, Hypertension, Other Respiratory History: No Pertinent History Endocrine Medical History: Other Musculoskeletal History: Fibromyalgia, Osteoarthritis, Other GI Medical History: Crohns Disease, GERD, Hemorrhoids History: No Pertinent History Psycho-Social History: Anxiety, Depression Female Reproductive Disorders: No Pertinent History Other Medical History: CROHN'S DISEASE, TMJ DYSFUNCTION, DVT LEFT LE (ON ELIQUIS). raynaud's--graves disease, Innersole Maker: Dr. Borrego - Past Surgical History Past Surgical History: Yes Neuro Surgical History: No Pertinent History Cardiac: No Pertinent History Respiratory: No Pertinent History Gastrointestinal: Hernia Repair Genitourinary: No Pertinent History Musculoskeletal: No Pertinent History, Other Female Surgical History: Hysterectomy, Tubal Ligation Other Surgical History: groshong placement/removed, port placement/removed, left hand surgery, plantar fasciatits repair, heel spur removal, half of her thyroid removed on 08/22/24 - Female History Hx Last Menstrual Period: 08/21/2013 Hx Now: No - Social History Smoking Status: Current every day smoker Exposure to second hand smoke: No Drug Use: none - Social Determinants of Health Will the patient participate in the screening: Declined to provide - Nursing Vital Signs Nursing Vital Signs: Initial Vital Signs Temperature 99.2 F 09/26/24 15:00 Pulse Rate 82 09/26/24 15:00 Respiratory Rate 12 09/26/24 15:00 Blood Pressure 109/59 09/26/24 15:00 O2 Sat by Pulse Oximetry 96 09/26/24 15:00 Pain Scale Pain Intensity 8 - Physical Exam General Appearance: no apparent distress Respiratory Exam: normal breath sounds, lungs clear, No chest tenderness Cardiovascular Exam: regular rate/rhythm, normal heart sounds Gastrointestinal/Abdomen Exam: soft, normal bowel sounds Extremity Exam: other (Peripheral edema in the hands and feet. Its about 2+) Neurologic Exam: alert, oriented x 3 Skin Exam: normal color, warm SpO2: 96 - Course Nursing assessment & vital signs reviewed: Yes Ordered Tests: Active Orders 24 hr Category Date Time Status BMP Stat Lab 09/26/24 15:30 Completed CBC W DIFF Stat Lab 09/26/24 15:30 Completed UA W/RFX UR CULTURE Stat Lab 09/26/24 16:05 Completed Medication Summary Discontinued Medications Generic Name Dose Route Start Last Admin Trade Name Geo PRN Reason Stop Dose Admin Furosemide 40 mg 09/26/24 15:18 09/26/24 15:34 Furosemide 40 Mg/4 Ml Vial IV 09/26/24 15:19 40 mg STAT ONE Administration Furosemide Confirm 09/26/24 15:32 Furosemide 40 Mg/4 Ml Vial Administered 09/26/24 15:33 Dose 40 mg .ROUTE .STK-MED ONE Lab/Rad Data: Laboratory Result Diagrams 09/26/24 15:30 09/26/24 15:30 Laboratory Results 09/26/24 09/26/24 09/26/24 Range/Units 16:05 15:30 15:30 WBC 7.0 (3.98-10.04) x10^3/uL RBC 4.38 (3.93-5.22) x10^6/uL Hgb 12.8 (11.2-15.7) g/dL Hct 37.4 (34.1-44.9) % MCV 85.4 (79.4-94.8) fL MCH 29.2 (25.6-32.2) pg MCHC 34.2 (32.2-35.5) g/dL RDW 12.3 (11.7-14.4) % Plt Count 197 (182-369) x10^3/uL MPV 11.0 (9.4-12.3) fL Gran % 61.2 (34.0-71.1) % Immature Gran % (Auto) 0.4 (0.001-0.429) % Nucleat RBC Rel Count 0.0 (0.00-0.2) % Eos # (Auto) 0.22 (0.04-0.36) x10^3/uL Immature Gran # (Auto) 0.03 (0.001-0.031) x10^3u/L Absolute Lymphs (auto) 2.00 (1.18-3.74) x10^3/uL Absolute Monos (auto) 0.40 (0.24-0.86) x10^3/uL Absolute Nucleated RBC 0.00 (0.00-0.012) x10^3u/L Lymphocytes % 28.6 (19.3-51.7) % Monocytes % 5.7 (4.7-12.5) % Eosinophils % 3.1 (0.7-5.8) % Basophils % 1.0 (0.1-1.2) % Absolute Granulocytes 4.28 (1.56-6.13) x10^3/uL Basophils # 0.07 (0.01-0.08) x10^3/uL Sodium 140 (135-145) mmol/L Potassium 4.3 (3.5-5.1) mmol/L Chloride 107 (98-107) mmol/L Carbon Dioxide 25 (22-30) mmol/L Anion Gap 12.6 (5-15) MEQ/L BUN 17 (7-17) mg/dL Creatinine 0.83 (0.52-1.04) mg/dL Estimated GFR 83.7 ML/MIN Glucose 94 (74-106) mg/dL Calcium 9.3 (8.4-10.2) mg/dL Urine Color Yellow (Yellow) Urine Appearance Clear (Clear) Urine pH 6.5 (4.6-8.0) Ur Specific [place] 1.010 (1.005-1.030) Urine Protein Negative (Negative) Urine Glucose (UA) Negative (Negative) mg/dL Urine Ketones Negative (Negative) Urine Blood Negative (Negative) Urine Nitrite Negative (Negative) Urine Bilirubin Negative (Negative) Urine Urobilinogen 0.2 (0.2) mg/dL Ur Leukocyte Esterase Negative (Negative) U Hyaline Cast (Auto) NONE SEEN (0-2) /LPF Urine Microscopic RBC 0-2 (0-5) /HPF Urine Microscopic WBC 0-2 (0-5) /HPF Ur Epithelial Cells None Seen (None Seen) /HPF Urine Bacteria None Seen (None Seen) /HPF Urine Culture Reflexed NO (NO) - Progress Progress Note: Patient was stable throughout stay. I gave her some Lasix. She had a lot of urination and urine output. I am going to have her of her dose of furosemide. Her chemistry and CBC were fine. I think this isHer usual peripheral edema 09/26/24 17:06 - Departure Departure Disposition: Home Clinical Impression: Peripheral edema Condition: Stable Critical Care Time: No Referrals: TERENCE AVERY DO [Primary Care Provider, [facility]] - Follow up/PCP as directed Instructions: Peripheral Edema -- Bilateral
[2024-09-26 17:15] VITALS: BP 126/82; PULSE 79; RESP 14
== END 2024-09-26 17:25 | disposition home or self-care (01) ==
LOC: ED 14:47
DX: R60.0 Localized edema (principal); E78.5 Hyperlipidemia, unspecified; I10 Essential (primary) hypertension; Z79.899 Other long term (current) drug therapy; Z72.0 Tobacco use
CPT/HCPCS: 36415; 80048; 81001; 85025; 96374; 99283; 99284; J1938